=== PATIENT | male | born 1940 | race Caucasian/White ===

== ENCOUNTER 2018-02-01 14:27 | Outpatient (CLI) | payer MEDICARE ==
--- NOTE | 2018-02-01 16:22 | RAD ---
FRONTAL AND LATERAL IMAGING OF THE CHEST: Date: 02-01-18 Comparison: 02-25-15 History: Shortness of breath. FINDINGS: There is stable enlargement of the cardiac silhouette and atherosclerotic calcification of the aortic arch. There is stable elevation of the right hemidiaphragm. A 3 lead transvenous AICD is noted, inse rted via left subclavian approach. No pneumothorax, pleural fluid, focal consolidation or alveolar edema. Cardiac silhouette is prominen t on the lateral view. There is multilevel mid thoracic spine disc space narrowing and anterior osteo phyte formation. IMPRESSION: Chronic findings as described above. No focal consolidation or alveolar edema. POS: [facility]
--- NOTE | 2018-02-01 16:36 | NM ---
VQ SCAN: 02/01/18 HISTORY: Elevated D-dimer, shortness of breath. TECHNIQUE: A ventilation perfusion scan was performed using 7.4 millicuries Xenon 133 by inhalation for the vent ilation study followed by the intravenous administration of 6.4 millicuries technetium 99m-MAA for th e perfusion scan. FINDINGS: Correlation is made with the chest radiograph of the same date. There are matched segmental defects in the left lower lobe. No mismatched defects are seen. IMPRESSION: Intermediate probability for pulmonary embolism. Results were called over the telephone to ELIESER Toney at 3:45 p.m. POS: [facility]
== END 2018-02-01 14:28 | disposition home or self-care (01) ==
LOC: NM 14:27
PROVIDERS: ATTEND Physician Assistant
DX: R06.02 Shortness of breath (principal); R79.89 Other specified abnormal findings of blood chemistry; I70.0 Atherosclerosis of aorta; M48.04 Spinal stenosis, thoracic region
CPT/HCPCS: 71046; 78582; A9540; A9558

== ENCOUNTER 2018-11-21 12:07 | Inpatient (IN) | payer MEDICARE ==
[2018-11-21 12:52] LABS: #Eosinphils 0.1 thou/uL (0.0-0.7); #Lymphocytes 0.8 thou/uL (1.20-3.40); #Monocytes 0.7 thou/uL (0.11-0.59); #Neutrophils 5.1 thou/uL (1.40-6.50); %Basophils 0.2 % (0.0-1.0); %Eosinophils 1.2 % (0.0-10.0); %Lymphocytes 11.8 % (21.0-51.0); %Monocytes 10.1 % (0.0-10.0); %Neutrophils 76.7 % (42.0-75.0); Hemoglobin 11.2 g/dL (14.0-18.0); Mean Corpuscular HGB CONC 30.5 g/dL (32.0-36.0); Mean Corpuscular Hemoglobin 30.8 pg (27.0-31.0); Mean Platelet Volume 9.2 fL (7.4-10.4); Platelet Count 180 thou/uL (130-400); RBC Distribution Width 13.4 % (11.5-14.5); Red Blood Cell (RBC) Count 3.64 mill/uL (4.70-6.10); White Blood Cell (WBC) Count 6.7 thou/uL (4.8-10.8)
[2018-11-21] MEDS ORDERED: Calcium Carbonate 500 MG ChewTAB PO PRN (12:59)
[2018-11-21] MEDS ORDERED: Ondansetron ODT 4 MG TAB PO PRN (12:59)
[2018-11-21] MEDS ORDERED: Ondansetron PF 4 MG/2 ML Vial SLOW IVP PRN (12:59)
[2018-11-21 13:06] VITALS: BMI 31.9
[2018-11-21 13:11] LABS: Anion Gap 17 mmol/L (10-20); Calc. Creatinine Clearance 17 mL/min (70-130); Carbon Dioxide 21 mmol/L (23-31); Chloride 102 mmol/L (98-107); Estimated GFR-MDRD 11; Glucose 102 mg/dL (83-110); Sodium 135 mmol/L (136-145)
[2018-11-21] MEDS ORDERED: Furosemide 40 MG/4 ML VIAL SLOW IVP SCH (13:15)
[2018-11-21 13:22] LABS: BUN (Urea Nitrogen) 119 mg/dL (8.4-25.7)
[2018-11-21] MEDS ORDERED: Acetaminophen 325 MG TAB PO PRN (14:30)
[2018-11-21] MEDS ORDERED: Guaifenesin DM 100-10/5 ML UDCUP PO PRN (14:30)
[2018-11-21] MEDS ORDERED: Senokot S 8.6-50 MG TAB PO PRN (14:30)
[2018-11-21 15:53] LABS: INR-International Normal Ratio 1.1; PTT 31.3 SEC (22.9-36.1); Prothrombin Time 14.7 SEC (12.0-14.7)
[2018-11-21] MEDS: DOBUTamine 500 mg/250 ml 500 MG in Premix Bag 1 BAG IVPB SCH (15:57)
[2018-11-21 16:10] LABS: ALT (SGPT) 23 U/L (8-55); AST (SGOT) 14 U/L (5-34); Albumin 3.9 g/dL (3.4-4.8); Alkaline Phosphatase 81 U/L (40-150); Bilirubin, Direct 0.4 mg/dL (0.1-0.3); Bilirubin, Total 0.7 mg/dL (0.2-1.2); Protein, Total 6.7 g/dL (5.8-8.1)
--- NOTE | 2018-11-21 16:17 | HP ---
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 HISTORY OF PRESENTING ILLNESS: The patient gives history of having progressive swelling in both lower extremities from last 3 weeks. He has been on increased dose of Lasix from last 1-1/[address] Pereyra. He usually takes 40 mg, and this was escalated to 80 mg daily. From Tuesday, he has been asked to discontinue this as he was found to be dehydrated by primary care physician Dr. Bailey. The at bedside says his GFR is around 16% normally, it has come down to 16% from 18 or 20 that he was on before. The patient had gone to see Dr. Mckinnon for routine office visit and was asked to come to the emergency room after his BUN and creatinine were 119 and 5.0. PAST MEDICAL AND SURGICAL HISTORY: History of cardiomyopathy from last 3 to 4 years, likely nonischemic. We will obtain records from Dr. Mckinnon's office. AICD, hypertension, gout, dyslipidemia, bilateral knee surgeries, ankle surgery, and hip surgery. CURRENT MEDICATIONS: 1. The patient is on Imdur extended release 30 mg p.o. daily. 2. Lasix. He is off Lasix from last Tuesday. 3. Allopurinol 100 mg p.o. daily. 4. Fenofibrate 67 mg p.o. daily. 5. Hydralazine 25 mg p.o. 3 times daily. 6. Coreg 25 mg twice daily. 7. Norvasc 5 mg daily. 8. Lipitor 40 mg p.o. daily. ALLERGIES: NO KNOWN DRUG ALLERGIES. PERSONAL HISTORY: Does not abuse alcohol or drugs. No history of smoking. He normally ambulates inside the house and uses a cane. FAMILY HISTORY: Mother at the age of 92. Father at the age of 86, both of natural causes. Code status is DNAR, and power of deputy prosecuting attorney is his . REVIEW OF SYSTEMS: CONSTITUTIONAL: Negative for weight loss or gain, ability to conduct usual activities. SKIN: Negative for rash, itching. EYES: Negative for double vision, pain. ENT/MOUTH: Negative for nose bleeding, neck stiffness, pain, tenderness. CARDIOVASCULAR: Negative for palpitations, dyspnea on exertion, orthopnea. RESPIRATORY: Negative for shortness of breath, wheezing, cough, hemoptysis, fever or night sweats. GASTROINTESTINAL: Negative for poor appetite, abdominal pain, heartburn, nausea, vomiting, constipation, or diarrhea. GENITOURINARY: Negative for urgency, frequency, dysuria, nocturia. MUSCULOSKELETAL: Negative for pain, swelling. NEUROLOGIC/PSYCHIATRIC: Negative for anxiety, depression. ALLERGY/IMMUNOLOGIC: Negative for skin rash, bleeding tendency. PHYSICAL EXAMINATION: GENERAL: The patient is a 78-year-old male, who is currently not in any acute distress. VITAL SIGNS: Blood pressure 116/60, pulse 60 per minute, respiratory rate 20 per minute, temperature 97.5 degrees Fahrenheit, saturating 94% on room air. NECK: Supple. There is elevated JVD. HEENT: Eyes; extraocular muscles intact. Pupils reacting to light. Oral cavity; mucous membranes are dry. No exudates or congestion. CARDIOVASCULAR: S1 and S2 heard. No murmur. RESPIRATORY: Air entry 1+ bilateral. There are basal rales plus. ABDOMEN: Soft. Bowel sounds heard. No tenderness, rigidity, or guarding. EXTREMITIES: There is 2+ peripheral edema. No calf tenderness. VASCULAR: Peripheral pulses 1+ bilateral. No ischemic ulcerations or gangrene. CENTRAL NERVOUS SYSTEM: No gross focal deficits noted. The patient is alert and oriented well. PSYCHIATRIC: The patient's mood is euthymic. No hallucinations or delusions. LABORATORY DATA: White count of 6.7, hemoglobin and hematocrit 11 and 36, platelet count 180, MCV is 101 with 76% neutrophils. Serum bicarb 21, BUN 119, creatinine 5.0, serum glucose 102. CLINICAL IMPRESSION AND PLAN: The patient will be admitted to telemetry for acute on chronic congestive heart failure exacerbation with acute kidney injury on top of chronic kidney disease stage 4/5. He will be on Lasix 40 mg IV q.12 hourly along with dobutamine 2.5 mcg/kg per minute. I have consulted both Dr. Mckinnon and Dr. Pereyra. The patient likely will need to be started on hemodialysis. He will be on aspirin, Lipitor, and Coreg at a lower dose. We will continue allopurinol, fenofibrate, and Imdur as before. Hydralazine will be reduced to twice daily to accommodate for diuresis. We will obtain echo with 2D Doppler for LV function and ultrasound renal in view of acute kidney injury. TSH with the morning labs. Hepatic panel will also be obtained now. Code status was discussed with him, and he wants to be DNAR. Power of deputy prosecuting attorney is his . The patient is open for starting on hemodialysis. He is clearly aware that he might end up on dialysis with diuresis and the need for removing fluid. Job ID: [id number]
--- NOTE | 2018-11-21 16:17 | ULT ---
RENAL ULTRASOUND: History: Chronic renal disease, acute renal insufficiency. FINDINGS: Real-time imaging of the right and left kidneys were performed. The right kidney measures 11 and the left kidney 12.1 cm in size. Bilateral renal cysts are present. The largest on the right is 6.1 cm an d on the left 4.3 cm. No obstruction. There is some increased echogenicity to the cortex of both kidn eys, with cortical thinning more pronounced on the right side. The bladder region appears unremarkabl e. IMPRESSION: Multiple bilateral renal cysts. No obstruction or solid mass. POS: [facility]
--- NOTE | 2018-11-21 16:39 | RAD ---
CHEST ONE VIEW: History: Dyspnea. Comparison: 11-14-18 FINDINGS: Cardiac silhouette is magnified and enlarged. Pulmonary vasculature is slightly more engorged than on the prior study. Mediastinum is midline with aortic calcification and a dual-lead left subclavian ca rdiac electronic device. No evidence of pneumothorax. IMPRESSION: 1. Developing mild pulmonary vascular congestion. 2. Atherosclerosis. POS: [facility]
[2018-11-21] MEDS: Albumin 25% 25 GM/100 ML BOT IVPB SCH (18:35)
[2018-11-21 19:28] LABS: Bilirubin Negative (Negative); Blood, Urine Negative (Negative); Clarity CLEAR (Clear); Glucose, Urine (Dipstick) Negative (Negative); Leukocyte Negative (Negative); Nitrite Negative (Negative); Protein, Urine (Dipstick) Negative (Neg-Trace); Specific Gravity, Urine 1.012 (1.002-1.036); Urobilinogen 0.2 mg/dL (0.2-1.0)
[2018-11-21 19:33] LABS: Bacteria/HPF None Seen HPF (None Seen); Hyaline Casts/LPF 0-3 HYALINE CAST LPF (0-3 Hyaline); Pathc Cast-AUWi Flag 0.14 (0-2.49); RBC/HPF 0-3 HPF (0-3); Squamous Epithelial 0-3 HPF (0-3); WBC/HPF 0-3 HPF (0-3)
[2018-11-21 19:38] LABS: Sperm-AUWi Flag 108.7 (0-9.9)
[2018-11-21 19:48] LABS: Sperm/HPF 1+ HPF (None Seen)
[2018-11-21] MEDS ORDERED: Carvedilol 6.25 MG TAB PO SCH (21:00)
[2018-11-21] MEDS ORDERED: Famotidine/PF 20 mg/2ml Vial SLOW IVP SCH (21:00)
[2018-11-21] MEDS: hydrALAZINE 25 MG TAB PO SCH (21:54)
[2018-11-21] MEDS: Heparin 5,000 UNITS/ML VIAL SC SCH (21:56)
--- NOTE | 2018-11-21 23:03 | CON ---
DATE OF CONSULTATION: HISTORY OF PRESENT ILLNESS: Mr. Hancock is a 78-year-old white male with known history of chronic heart failure from hypertensive nephropathy and admitted for progressive shortness of breath. I saw the patient back on November 08, 2018 at [facility]. He was complaining of shortness of breath. At that time, his Lasix was increased from 40 mg once a day to 40 mg twice a day. However, the shortness of breath remained unimproved. Recently his diuretic was stopped due to worsening renal dysfunction. He saw his Plug Making Operator today and it was decided to admit him for IV dobutamine. He is currently receiving IV dobutamine. We are consulted for his acute kidney injury on top of his chronic renal failure. REVIEW OF SYSTEMS: Shortness of breath on exertion. No nausea, n no vomiting, no chest pain. No syncopal episode. No productive cough. No dysuria. No urinary frequency, no abdominal pain. Appetite is decreased. Energy level is decreased. No diarrhea. Positive for chronic leg swelling. Positive for abdominal fullness. MEDICATIONS: 1. Zyloprim 100 mg daily. 2. Aspirin 81 mg daily. 3. Lipitor 40 mg at bedtime. 4. Tums 1000 mg IV q.4h p.r.n. 5. Coreg 6.25 mg p.o. b.i.d. 6. Dobutamine drip. 7. Pepcid 20 mg daily. 8. Lasix 40 mg IV q.12. 9. TriCor 48 mg daily. 10. Heparin 5000 units subcu b.i.d. 11. Imdur ER 30 mg once a day. PAST MEDICAL HISTORY: Includes the followin. History of chronic renal failure from hypertensive nephropathy. 2. Congestive heart failure. 3. Hyperlipidemia. 4. Gout. 5. Longstanding hypertension. 6. Chronic NSAID intake. 7. DJD. PAST SURGICAL HISTORY: 1. Status post bilateral knee surgery. 2. Status post left ankle surgery. 3. Status post colonoscopy. 4. Status post left shoulder joint surgery. 5. Status post cardiac cath. SOCIAL HISTORY: The patient is . Lives in [place]. 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 Alcohol rarely. No children. No IV drug abuse. No blood transfusion. Education: College graduate. FAMILY HISTORY: No family history of ESRD. ALLERGIES: NONE. TRAUMA: Status post left shoulder joint dislocation. IMMUNIZATION: Up-to-date. HOSPITALIZATIONS: Please see past medical history. PHYSICAL EXAMINATION: VITAL SIGNS: Blood pressure is noted at 121/66 with a heart rate of 62, respiratory rate 18, temperature 97, pulse ox 93 percent. GENERAL: Noted to be awake, alert, comfortable, not in overt distress. SKIN: Adequate turgor. HEENT: He has pinkish conjunctivae. Anicteric sclerae. No neck mass. No carotid bruits. No JVD. CHEST: No deformities. LUNGS: Decreased breath sounds. Occasional crackles. HEART: Normal sinus rhythm. No murmur. No gallops. No rubs. ABDOMEN: Globular, soft, nontender. No masses. EXTREMITIES: Positive for edema. NEUROLOGICAL: Awake, oriented to 3 spheres. Moving all extremities. No tremors or asterixis. No ataxia. LABORATORY STUDIES: On November 21, 2018, renal ultrasound shows multiple bilateral renal cysts. No obstruction or solid mass. White count 6.7, hemoglobin 11.2. Sodium 135, potassium 5, chloride 102, carbon dioxide 21, BUN is 119, creatinine 5.04, GFR 11 mL/minute, glucose 102, and calcium is 9. AST 14, ALT 23. Chest x-ray is pending. ASSESSMENT AND PLAN: 1. Acute kidney injury on top of his chronic renal failure. I suspect prerenal azotemia, this could be from a worsening cardiac dysfunction and/or from the recent diuretic regimen. My bias is to at least add albumin 25 g IV q.6 in addition to his current diuretic regimen. 2. There is no indication for an emergent hemodialysis at the present time. 3. Attempt to improve renal function with conservative management. 4. Congestive heart failure-started on IV dobutamine. Currently, on IV Lasix 40 mg IV q.12. Hopefully with an improved cardiac output, renal perfusion will also improve. 5. Overall, agree with current management. Job ID: [id number]
[2018-11-22] MEDS: Albumin 25% 25 GM/100 ML BOT IVPB SCH ×4 (00:17→18:57)
[2018-11-22] MEDS ORDERED: Furosemide 40 MG/4 ML VIAL SLOW IVP SCH (06:00)
[2018-11-22 07:20] LABS: #Eosinphils 0.1 thou/uL (0.0-0.7); #Lymphocytes 0.7 thou/uL (1.20-3.40); #Monocytes 0.5 thou/uL (0.11-0.59); #Neutrophils 4.8 thou/uL (1.40-6.50); %Basophils 0.3 % (0.0-1.0); %Eosinophils 1.2 % (0.0-10.0); %Monocytes 7.6 % (0.0-10.0); %Neutrophils 78.9 % (42.0-75.0); Hemoglobin 10.2 g/dL (14.0-18.0); Mean Corpuscular HGB CONC 33.9 g/dL (32.0-36.0); Mean Corpuscular Hemoglobin 34.2 pg (27.0-31.0); Mean Platelet Volume 9.5 fL (7.4-10.4); Platelet Count 148 thou/uL (130-400); RBC Distribution Width 13.5 % (11.5-14.5); Red Blood Cell (RBC) Count 2.97 mill/uL (4.70-6.10); White Blood Cell (WBC) Count 6.1 thou/uL (4.8-10.8)
[2018-11-22 07:33] LABS: Albumin 3.7 g/dL (3.4-4.8); Anion Gap 16 mmol/L (10-20); Calc. Creatinine Clearance 18 mL/min (70-130); Calcium 8.8 mg/dL (7.8-10.44); Carbon Dioxide 21 mmol/L (23-31); Chloride 102 mmol/L (98-107); Estimated GFR-MDRD 11; Glucose 89 mg/dL (83-110); Phosphorus 5.9 mg/dL (2.3-4.7); Potassium 4.9 mmol/L (3.5-5.1); Sodium 134 mmol/L (136-145)
[2018-11-22 07:45] LABS: BUN (Urea Nitrogen) 117 mg/dL (8.4-25.7); BUN/Creatinine Ratio 23.68
[2018-11-22] MEDS ORDERED: Fenofibrate 48 MG TAB PO SCH (09:00)
[2018-11-22] MEDS ORDERED: Epoetin (ESRD) 20,000 UNITS/ML SC SCH (09:00)
[2018-11-22] MEDS ORDERED: Atorvastatin Calcium 40 MG TAB PO SCH (09:00)
--- NOTE | 2018-11-22 09:19 | PRG ---
DATE OF SERVICE: 11/22/2018 RENAL MEDICINE SUBJECTIVE: Mr. Hancock is a 78-year-old white male, who was seen by the [facility] for his acute kidney injury on top of his chronic renal failure. He was admitted for CHF. He has been started on IV dobutamine by his swinging cut off saw operator. This morning, he has no new complaints. He still says he has the same shortness of breath. He is currently on diuretic regimen. OBJECTIVE: VITAL SIGNS: Blood pressure is 130/63, heart rate is 70, respiratory rate 20, pulse ox 94% on room air, temperature 98.1. GENERAL: Awake, alert, comfortable, not in overt distress. SKIN: Adequate turgor. HEENT: He has slightly pale conjunctivae. Anicteric sclerae. No neck mass. No carotid bruits. No JVD. CHEST: No deformities. LUNGS: Decreased breath sounds. HEART: Normal sinus rhythm. No murmur. No gallops. No rubs. ABDOMEN: Globular, soft, nontender. No masses. EXTREMITIES: No deformities. Positive for edema. NEUROLOGICAL: Awake, oriented to 3 spheres. Moving all extremities. No tremors or asterixis. MEDICATIONS: Medications of November 22, 2018 was reviewed. LABORATORY DATA: Laboratories of November 22, 2018; white count 6.1, hemoglobin 10.2. Sodium 134, potassium 4.9, chloride 102, carbon dioxide 21, BUN 117, creatinine 4.94, GFR 11 mL/minute, phosphorus 5.9, calcium 8.8, TSH 2.1, albumin 3.7. ASSESSMENT AND PLAN: 1. Acute kidney injury/chronic renal failure superimposed, hemodynamically-mediated renal dysfunction. Lasix has been resumed. His much decreased ejection fraction may be playing a factor in the decreased renal perfusion. A tentative report of the cardiac echo showed an EF of about 10% to 15%. I will increase the Lasix to 80 mg IV q.12. We will be monitoring the patient's renal function. I did explain to the patient due to his markedly depressed GFR, he may need dialysis. He would like to think about it. 2. Anemia. Start Epogen. 3. Congestive heart failure. Increase Lasix to 80 mg IV q.12. Monitor renal function. Overall, prognosis remains guarded with this patient. Job ID: [id number]
[2018-11-22] MEDS: hydrALAZINE 25 MG TAB PO SCH ×2 (10:16→21:23)
[2018-11-22] MEDS: Famotidine 20 MG TAB PO SCH (10:16)
[2018-11-22] MEDS: Allopurinol 100 MG TAB PO SCH (10:16)
[2018-11-22] MEDS: Heparin 5,000 UNITS/ML VIAL SC SCH ×2 (10:17→21:23)
--- NOTE | 2018-11-22 11:48 | PDOC.PN ---
- Subjective Encounter Start Date: 11/22/18 Encounter Start Time: 08:15 Subjective: sob is better, says he is making more urine -: no chest pain or palp -: eze hose is too loose to wear per patient - Objective Resuscitation Status - Order Detail: 11/21/18 14:30 Resuscitation Status Routine Resuscitation Status: DNAR: NO Resuscitation Discussed with: d/w patient at bedside MAR Reviewed: Yes Vital Signs & Weight: Vital Signs (12 hours) Temp Pulse Resp BP Pulse Ox 11/22/18 10:16 62 11/22/18 08:00 98.3 F 62 18 126/62 93 L 11/22/18 04:00 98.1 F 70 20 130/63 Weight Weight 228 lb 14.4 oz I&O: 11/21/18 11/22/18 11/23/18 06:59 06:59 06:59 Intake Total 1090 Output Total 775 Balance 315 Result Diagrams: 11/22/18 05:27 11/22/18 05:27 Phys Exam - Physical Examination HEENT: PERRLA, moist MMs Neck: no JVD, supple Respiratory: no wheezing, no rales Cardiovascular: RRR, no significant murmur Gastrointestinal: soft, non-tender, positive bowel sounds Musculoskeletal: pulses present, edema present Neurological: non-focal, moves all 4 limbs Psychiatric: normal affect, A&O x 3 Dx/Plan (1) FARRAH (acute kidney injury) Code(s): N17.9 - ACUTE KIDNEY FAILURE, UNSPECIFIED Status: Acute (2) CKD (chronic kidney disease) stage 5, GFR less than 15 ml/min Code(s): N18.5 - CHRONIC KIDNEY DISEASE, STAGE 5 Status: Acute (3) Acute exacerbation of CHF (congestive heart failure) Code(s): I50.9 - HEART FAILURE, UNSPECIFIED Status: Chronic Qualifiers: Heart failure type: systolic Qualified Code(s): I50.23 - Acute on chronic systolic (congestive) heart failure (4) HTN (hypertension) Code(s): I10 - ESSENTIAL (PRIMARY) HYPERTENSION Status: Chronic Qualifiers: Hypertension type: essential hypertension Qualified Code(s): I10 - Essential (primary) hypertension (5) Dyslipidemia Code(s): E78.5 - HYPERLIPIDEMIA, UNSPECIFIED Status: Chronic (6) Chronic anemia Code(s): D64.9 - ANEMIA, UNSPECIFIED Status: Acute Comment: due to ckd - Plan is getting alb infusions per nephr adv -: on dobutamine infusion -: likely will need HD, ?fistual placement in prep for HD -: accurate I/O -: continue asp, lipitor, hydralazine, lasix iv , hydralazine and imdur * . Review of Systems - Medications/Allergies Allergies/Adverse Reactions: Allergies Allergy/AdvReac Type Severity Reaction Status Date / Time No Known Allergies Allergy Verified 11/21/18 13:07 Medications: Current Medications Acetaminophen (Tylenol) 650 mg PO Q4H PRN PRN Reason: Headache/Fever/Mild Pain (1-3) Albumin Human (Albumin 25%) 25 gm IVPB Q6HR [facility] Stop: 11/24/18 18:01 Last Admin: 11/22/18 06:40 Dose: 25 gm Allopurinol (Zyloprim) 100 mg PO DAILY [facility] Last Admin: 11/22/18 10:16 Dose: 100 mg Aspirin (Aspirin Chewable) 81 mg PO DAILY [facility] Last Admin: 11/22/18 10:16 Dose: 81 mg Atorvastatin Calcium (Lipitor) 40 mg PO HS [facility] Calcium Carbonate (Tums) 1,000 mg PO Q4H PRN PRN Reason: Heartburn or Indigestion Epoetin Bryce (Procrit) 7,500 units SC Q7D [facility] Famotidine (Pepcid) 20 mg PO DAILY [facility] Last Admin: 11/22/18 10:16 Dose: 20 mg Furosemide (Lasix) 80 mg SLOW IVP 0600,1400 [facility] Guaifenesin/Dextromethorphan (Robitussin Dm) 15 ml PO Q4H PRN PRN Reason: Cough Heparin Sodium (Porcine) (Heparin) 5,000 units SC BID [facility] Last Admin: 11/22/18 10:17 Dose: 5,000 units Hydralazine HCl (Apresoline) 25 mg PO BID [facility] Last Admin: 11/22/18 10:16 Dose: 25 mg Dobutamine HCl/Dextrose 500 mg (/ Device) 250 mls @ 0 mls/hr IVPB INF [facility]; Protocol Last Admin: 11/21/18 15:57 Dose: 250 mls Isosorbide Mononitrate (Imdur Er) 30 mg PO DAILY [facility] Last Admin: 11/22/18 10:16 Dose: 30 mg Ondansetron HCl (Zofran Odt) 4 mg PO Q6H PRN PRN Reason: Nausea/Vomiting Ondansetron HCl (Zofran) 4 mg SLOW IVP Q6H PRN PRN Reason: Nausea/Vomiting Senna/Docusate Sodium (Senokot S) 2 tab PO BID PRN PRN Reason: Constipation Sodium Chloride (Flush - Normal Saline) 10 ml IVF PRN PRN PRN Reason: Saline Flush Sodium Chloride (Flush - Normal Saline) 10 ml IVF Q12HR LB Last Admin: 11/22/18 10:20 Dose: 10 ml
[2018-11-22] MEDS: Furosemide 40 MG/4 ML VIAL SLOW IVP SCH (15:54)
--- NOTE | 2018-11-22 20:12 | PRG ---
DATE OF SERVICE: SUBJECTIVE: Mr. Hancock is diuresing. His blood pressure is stable. He states he feels much better. He has lost some weight per the patient, although this is not reflected in the nurse's note. OBJECTIVE: VITAL SIGNS: Blood pressure 136/60, pulse 60, and temperature 97.6. LUNGS: Crackles noted bilaterally, although improved. HEART: Regular rate and rhythm. ABDOMEN: Soft, nontender, and nondistended. EXTREMITIES: 2+ pitting edema. PERTINENT LABORATORY DATA: Hemoglobin 10.2. Creatinine 4.94 which is down from 5.04. IMPRESSION: 1. Urgar-gq-ctysxuw systolic heart failure. 2. Nonischemic cardiomyopathy. 3. Glrts-me-mcmilbz kidney disease. RECOMMENDATION: We will continue with IV checks. We would also continue Lasix. We will continue to consider metolazone. At this point, it is uncertain whether Mr. Hancock will require long-term dialysis. We will leave disposition to Dr. Pereyra. We will continue to follow closely. Job ID: [id number]
[2018-11-22] MEDS: Atorvastatin Calcium 40 MG TAB PO SCH (21:22)
[2018-11-23] MEDS: Albumin 25% 25 GM/100 ML BOT IVPB SCH ×2 (00:33→06:08)
[2018-11-23] MEDS: DOBUTamine 500 mg/250 ml 500 MG in Premix Bag 1 BAG IVPB SCH ×2 (03:00→18:18)
[2018-11-23 05:37] LABS: #Eosinphils 0.1 thou/uL (0.0-0.7); #Lymphocytes 0.7 thou/uL (1.20-3.40); #Monocytes 0.5 thou/uL (0.11-0.59); #Neutrophils 5.4 thou/uL (1.40-6.50); %Basophils 0.3 % (0.0-1.0); %Eosinophils 1.1 % (0.0-10.0); %Monocytes 8.1 % (0.0-10.0); %Neutrophils 80.5 % (42.0-75.0); Hemoglobin 10.2 g/dL (14.0-18.0); Mean Corpuscular HGB CONC 33.7 g/dL (32.0-36.0); Mean Platelet Volume 9.3 fL (7.4-10.4); Platelet Count 140 thou/uL (130-400); RBC Distribution Width 13.5 % (11.5-14.5); White Blood Cell (WBC) Count 6.7 thou/uL (4.8-10.8)
[2018-11-23 05:58] LABS: Albumin 4.3 g/dL (3.4-4.8); Anion Gap 20 mmol/L (10-20); Calc. Creatinine Clearance 17 mL/min (70-130); Calcium 9.1 mg/dL (7.8-10.44); Carbon Dioxide 18 mmol/L (23-31); Chloride 101 mmol/L (98-107); Estimated GFR-MDRD 11; Glucose 91 mg/dL (83-110); Phosphorus 6.1 mg/dL (2.3-4.7); Potassium 4.5 mmol/L (3.5-5.1); Sodium 134 mmol/L (136-145)
[2018-11-23 06:09] LABS: BUN (Urea Nitrogen) 115 mg/dL (8.4-25.7)
[2018-11-23] MEDS: Furosemide 40 MG/4 ML VIAL SLOW IVP SCH ×2 (06:09→14:57)
[2018-11-23] MEDS ORDERED: CEFAZOLIN/Water 2 GM/20 ML SYRINGE SLOW IVP SCH (09:15)
[2018-11-23] MEDS: Famotidine 20 MG TAB PO SCH (09:19)
[2018-11-23] MEDS: Allopurinol 100 MG TAB PO SCH (09:19)
[2018-11-23] MEDS: hydrALAZINE 25 MG TAB PO SCH ×2 (09:19→21:14)
[2018-11-23] MEDS: Heparin 5,000 UNITS/ML VIAL SC SCH ×2 (09:20→21:15)
--- NOTE | 2018-11-23 09:22 | PRG ---
DATE OF SERVICE: 11/23/2018 SUBJECTIVE: Mr. Hancock is a 78-year-old white male, who was admitted for congestive heart failure. Initially, we felt there may be some prerenal component. He was given albumin with Lasix. He was also diuresed and was started on IV dobutamine. However, he did not respond well. His renal function remains unimproved. GFR is 11 mL/minute. Still mildly short of breath. OBJECTIVE: VITAL SIGNS: Blood pressure is 133/68, heart rate 87, respiratory rate 20, temperature 97.7, and pulse ox 92%. GENERAL: Noted to be awake, alert, supine, comfortable, not in overt distress. SKIN: Adequate turgor. HEENT: Slightly pale conjunctivae. Anicteric sclerae. NECK: No neck mass. No carotid bruits. No JVD. CHEST: No deformities. LUNGS: Decreased breath sounds. HEART: Normal sinus rhythm. No murmur. No gallops. No rubs. ABDOMEN: Globular, soft, nontender. No masses. EXTREMITIES: No edema. No deformities. MEDICATIONS: Medications of November 23, 2018, reviewed. LABORATORY DATA: Laboratories of November 23, 2018; white count 6.7, hemoglobin 10.2. Sodium 134, potassium 4.5, chloride 101, carbon dioxide 18, BUN 115, creatinine 5.11, GFR 11 mL/minute, phosphorus 6.1. ASSESSMENT AND PLAN: 1. Chronic renal failure - unimproved renal function. GFR is 11 mL/minute. Due to the volume overload, we will initiate hemodialysis with this patient. I had long discussion with the patient and the regarding dialysis. I have agreed to proceed with this. I have spoken Dr. Mercedes for placement of a cuffed hemodialysis catheter and AV fistula. 2. Congestive heart failure. For the moment, continue current IV diuretic regimen. We will initiate dialysis for fluid removal. 3. Overall, agree with current management. Job ID: [id number]
[2018-11-23] MEDS ORDERED: CEFAZOLIN 2 GM/50 ML-DEXTROSE 2 GM in Premix Bag 1 BAG IVPB SCH (09:45)
[2018-11-23 10:14] LABS: HBSAB Concentration 1.71 mIU/mL; HBSAg Index 0.18 S/CO (0-0.99); Hep B Core Total Ab Non-Reactive (NonReactive); Hep B Core Total Index 0.06 S/CO (0-0.79); Hep B Surf AB Non-Reactive (NonReactive); Hep B Surf Ag Non-Reactive S/CO (NonReactive); Hep C IgG Ab Non-Reactive (NonReactive); Hep C Index 0.06 S/CO (0-0.79)
--- NOTE | 2018-11-23 11:47 | ULT ---
VENOUS DUPLEX SONOGRAM FOR VEIN MAPPING: HISTORY: End stage renal disease. FINDINGS: Good color and spectral Doppler flow within each internal jugular and subclavian vein and each brachi al and axillary vein. Measurements are as follows: RIGHT BRACHIAL ARTERY: 7 mm RADIAL ARTERY: 2 mm ULNAR ARTERY: 2 mm RIGHT CEPHALIC VEIN BASILIC VEIN PROXIMAL HUMERUS 5 mm 6 mm MID HUMERUS 5 mm 8 mm DISTAL HUMERUS 5 mm 6 mm ANTECUBITAL FOSSA Partially thrombosed 5 mm PROXIMAL FOREARM 3 mm 1 mm MID FOREARM Partially thrombosed 1 mm DISTAL FOREARM 1 mm 1 mm LEFT BRACHIAL ARTERY: 6 mm RADIAL ARTERY: 2 mm ULNAR ARTERY: 2 mm LEFT CEPHALIC VEIN BASILIC VEIN PROXIMAL HUMERUS 4 mm 8 mm MID HUMERUS 5 mm 10 mm DISTAL HUMERUS 5 mm 7 mm ANTECUBITAL FOSSA 5 mm 5 mm PROXIMAL FOREARM 4 mm 3 mm MID FOREARM 4 mm 2 mm DISTAL FOREARM 3 mm 2 mm IMPRESSION: Partial thrombosis of the mid to distal right cephalic vein. Otherwise, patent vascular structures t hroughout each upper extremity, with measurements as detailed above. POS: [facility]
--- NOTE | 2018-11-23 17:09 | HP ---
HISTORY OF PRESENT ILLNESS: A 78-year-old male with end-stage renal disease. I have been asked to place a dialysis catheters. He has a left subclavian vein pacemaker. He had a cardiac catheterization in February 2015 for cardiomyopathy, first-degree AV block. EP study was performed and a dual chamber defibrillator was placed. I have been asked to see him regarding placement of a dialysis access, hemodialysis catheter and fistula/graft. The patient has IV, right forearm and left arm. The patient is followed by Dr. Mckinnon from a cardiac standpoint. Ultrasound vein mapping performed this morning revealed the right cephalic vein 5 mm, 5 mm, 5 mm. Antecubital fossa partially thrombosed 3 mm. Proximal forearm partially thrombosed, mid forearm, basilic vein, right 6 mm, 8 mm, 6 mm, 5 mm. Antecubital fossa 1 mm distally. Left cephalic vein 4 mm, 5 mm, 5 mm, 5 mm, 4 mm, 4 mm, 3 mm. Basilic vein, 7 mm, 10 mm, 7 mm, 5 mm, 3 mm, 2 mm, 2 mm distal arm. ALLERGIES: NONE. TOBACCO: None. ALCOHOL: Socially. MEDICATIONS: 1. Imdur extended-release 30 a day. 2. Lasix daily. 3. Allopurinol 100 mg a day. 4. Fenofibrate 67 mg daily. 5. Hydralazine 25 mg three times a day. 6. Coreg 25 mg twice a day. 7. Norvasc 5 mg daily. 8. Lipitor 5 mg p.o. daily. The patient ambulates about the house. He has had bilateral knee replacements and right hip replacement, left ankle surgery. He is up-to-date on his colonoscopy. Has defibrillator and no abdominal surgeries. Extremities unremarkable except for mild edema. PHYSICAL EXAMINATION: VITAL SIGNS: Height 5 feet 10 inches, 228 pounds, 32 BMI, temperature 97.3, pulse 63, blood pressure 144/63. HEAD, EARS, EYES, NOSE AND THROAT: Unremarkable. LUNGS: Clear to auscultation. CARDIAC: Regular rate and rhythm. No murmur or gallop. ABDOMEN: Soft and nontender. EXTREMITIES: Mild edema. Palpable radial pulses. Proximal forearm, volar right IV, more distal left forearm IV, defibrillator left chest full. LABORATORY DATA: White count 6.7, hemoglobin 10.2. Sodium 134, potassium 4.5, BUN 115, creatinine 5.1, GFR 11. ASSESSMENT AND PLAN: 1. End-stage renal disease, in need of dialysis access. Unfortunately, IVs have been placed in this known patient with chronic kidney disease. He needs dialysis access, IVs placed in his proximal right forearm. The best arm suited for dialysis access considering he has left defibrillator subclavian, which make that prone to occlusion. Unfortunately, he has partial thrombosis cephalic vein, iatrogenic due to IV access and blood draws. He has an IV in his left arm. At this point, I would recommend placement of a hemodialysis catheter and a central line, remove his peripheral IVs, and will plan that tomorrow. After this is accomplished, he then could have a left arm venogram to evaluate his central circulation to make sure he is fit for fistula, and then place a left arm fistula. With a left subclavian vein defibrillator, he is at risk for subclavian vein thrombosis, but considering iatrogenic thrombosis of his antecubital vein due to IVs and blood draws this hospitalization, this may be the best option. 2. 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 3. Gout. 4. Chronic kidney disease. 5. Cardiomyopathy. Job ID: [id number]
--- NOTE | 2018-11-23 20:37 | PDOC.PN ---
- Subjective Encounter Start Date: 11/23/18 Encounter Start Time: 10:00 Subjective: pt up in bed no complains - Objective Resuscitation Status - Order Detail: 11/21/18 14:30 Resuscitation Status Routine Resuscitation Status: DNAR: NO Resuscitation Discussed with: d/w patient at bedside Vital Signs & Weight: Vital Signs (12 hours) Temp Pulse Resp BP Pulse Ox 11/23/18 16:38 97.5 F L 64 18 94 L 11/23/18 11:49 97.3 F L 63 20 144/63 H 94 L 11/23/18 09:19 63 Weight Weight 228 lb 8 oz I&O: 11/22/18 11/23/18 11/24/18 06:59 06:59 06:59 Intake Total 1090 1807 1215 Output Total 775 1500 850 Balance 315 307 365 Result Diagrams: 11/23/18 05:15 11/23/18 05:15 Phys Exam - Physical Examination Neck: no nodes, no JVD, supple, full ROM Respiratory: no wheezing, no rales, no rhonchi, wheezing present, clear to auscultation bilateral Cardiovascular: RRR, no significant murmur, no rub, gallop, irregular Gastrointestinal: soft, non-tender, no distention, positive bowel sounds Dx/Plan (1) Acute exacerbation of CHF (congestive heart failure) Code(s): I50.9 - HEART FAILURE, UNSPECIFIED Status: Chronic Qualifiers: Heart failure type: systolic Qualified Code(s): I50.23 - Acute on chronic systolic (congestive) heart failure (2) FARRAH (acute kidney injury) Code(s): N17.9 - ACUTE KIDNEY FAILURE, UNSPECIFIED Status: Acute (3) Chronic anemia Code(s): D64.9 - ANEMIA, UNSPECIFIED Status: Acute Comment: due to ckd (4) HTN (hypertension) Code(s): I10 - ESSENTIAL (PRIMARY) HYPERTENSION Status: Chronic Qualifiers: Hypertension type: essential hypertension Qualified Code(s): I10 - Essential (primary) hypertension - Plan pt on dobutamine -: echo pending, will obtain records from [place] -: pt most likely will need dialysis * . Review of Systems - Review of Systems Cardiovascular: negative: chest pain, palpitations, orthopnea, paroxysmal nocturnal dyspnea, edema, light headedness, other Gastrointestinal: negative: Nausea, Vomiting, Abdominal Pain, Diarrhea, Constipation, Melena, Hematochezia, Other Genitourinary: negative: Dysuria, Frequency, Incontinence, Hematuria, Retention , Other - Medications/Allergies Allergies/Adverse Reactions: Allergies Allergy/AdvReac Type Severity Reaction Status Date / Time No Known Allergies Allergy Verified 11/21/18 13:07 Medications: Current Medications Acetaminophen (Tylenol) 650 mg PO Q4H PRN PRN Reason: Headache/Fever/Mild Pain (1-3) Albumin Human (Albumin 25%) 25 gm IVPB Q6HR [facility] Stop: 11/24/18 12:01 Allopurinol (Zyloprim) 100 mg PO DAILY [facility] Last Admin: 11/23/18 09:19 Dose: 100 mg Aspirin (Aspirin Chewable) 81 mg PO DAILY [facility] Last Admin: 11/23/18 09:19 Dose: 81 mg Atorvastatin Calcium (Lipitor) 40 mg PO HS [facility] Last Admin: 11/22/18 21:22 Dose: 40 mg Calcium Carbonate (Tums) 1,000 mg PO Q4H PRN PRN Reason: Heartburn or Indigestion Epoetin Bryce (Procrit) 7,500 units SC Q7D [facility] Last Admin: 11/22/18 13:48 Dose: 7,500 units Famotidine (Pepcid) 20 mg PO DAILY [facility] Last Admin: 11/23/18 09:19 Dose: 20 mg Furosemide (Lasix) 80 mg SLOW IVP 0600,1400 [facility] Last Admin: 11/23/18 14:57 Dose: 80 mg Guaifenesin/Dextromethorphan (Robitussin Dm) 15 ml PO Q4H PRN PRN Reason: Cough Heparin Sodium (Porcine) (Heparin) 5,000 units SC BID [facility] Last Admin: 11/23/18 09:20 Dose: 5,000 units Hydralazine HCl (Apresoline) 25 mg PO BID [facility] Last Admin: 11/23/18 09:19 Dose: 25 mg Dobutamine HCl/Dextrose 500 mg (/ Device) 250 mls @ 0 mls/hr IVPB INF [facility]; Protocol Last Admin: 11/23/18 18:18 Dose: 250 mls Cefazolin Sodium/Dextrose 2 gm (/ Device) 50 mls @ 100 mls/hr IVPB ONCALL-OR [facility] Stop: 11/24/18 15:00 Isosorbide Mononitrate (Imdur Er) 30 mg PO DAILY [facility] Last Admin: 11/23/18 09:19 Dose: 30 mg Ondansetron HCl (Zofran Odt) 4 mg PO Q6H PRN PRN Reason: Nausea/Vomiting Ondansetron HCl (Zofran) 4 mg SLOW IVP Q6H PRN PRN Reason: Nausea/Vomiting Senna/Docusate Sodium (Senokot S) 2 tab PO BID PRN PRN Reason: Constipation Sodium Chloride (Flush - Normal Saline) 10 ml IVF PRN PRN PRN Reason: Saline Flush Sodium Chloride (Flush - Normal Saline) 10 ml IVF Q12HR [facility] Last Admin: 11/23/18 09:25 Dose: 10 ml
[2018-11-23] MEDS: Atorvastatin Calcium 40 MG TAB PO SCH (21:15)
[2018-11-24] MEDS: Albumin 25% 25 GM/100 ML BOT IVPB SCH ×3 (00:06→15:06)
[2018-11-24] MEDS: Furosemide 40 MG/4 ML VIAL SLOW IVP SCH ×2 (05:57→15:06)
[2018-11-24 06:45] LABS: Albumin 4.6 g/dL (3.4-4.8); Anion Gap 22 mmol/L (10-20); BUN (Urea Nitrogen) 123 mg/dL (8.4-25.7); BUN/Creatinine Ratio 23.75; Calc. Creatinine Clearance 17 mL/min (70-130); Calcium 9.8 mg/dL (7.8-10.44); Carbon Dioxide 17 mmol/L (23-31); Chloride 101 mmol/L (98-107); Estimated GFR-MDRD 11; Glucose 99 mg/dL (83-110); Phosphorus 5.9 mg/dL (2.3-4.7); Potassium 4.3 mmol/L (3.5-5.1); Sodium 136 mmol/L (136-145)
--- NOTE | 2018-11-24 07:24 | PRG ---
DATE OF SERVICE: 11/24/2018 RENAL MEDICINE SUBJECTIVE: Mr. Hancock is a 78-year-old white male, who was admitted for worsening CHF. He was seen by Cardiology. He has been started on IV dobutamine and IV Lasix without significant improvement. Renal function continues to remain unimproved. We did discuss the case at length with the patient and his . They have agreed to proceed with dialytic intervention. This morning, no new complaints. The patient has been seen by Dr. Mercedes and a planned surgery for line placement has been scheduled. OBJECTIVE: VITAL SIGNS: Blood pressure 145/74, heart rate 93, respiratory rate 20, temperature 97.4, and pulse ox 97%. GENERAL: Noted to be awake, sitting comfortable, not in overt distress. SKIN: Adequate turgor. HEENT: He has a slightly pale conjunctivae. Anicteric sclerae. NECK: No neck mass. No carotid bruits. No JVD. CHEST: No deformities. LUNGS: Clear breath sounds. No wheezing. No crackles. HEART: Normal sinus rhythm. No murmurs. No gallops. No rubs. ABDOMEN: Globular, soft, nontender. No masses. EXTREMITIES: Positive for edema. MEDICATIONS: Medications of November 24, 2018, was reviewed. LABORATORY DATA: Laboratories of November 23, 2018, white count 6.7, hemoglobin 10.2. On November 24, 2018; sodium 136, potassium 4.3, chloride 101, carbon dioxide 17, BUN 123, creatinine 5.18, calcium 9.8, and phosphorus is 5.9. ASSESSMENT AND PLAN: 1. Acute kidney injury/chronic renal failure - worsening renal dysfunction. He is now at end-stage renal disease. We will initiate dialysis once the dialysis catheter is placed. My plan is to attempt 1 L fluid removal as tolerated. We will also plan to discharge the patient's diuretics. 2. Anemia. Epogen, weekly basis have been started. 3. Congestive heart failure, on IV dobutamine. Cardiology is following. Hopefully with fluid removal with dialysis, his congestive heart failure will improve. Job ID: [id number]
--- NOTE | 2018-11-24 08:35 | HP ---
ADDENDUM: After further consideration, decision was made to forego the left arm angiogram. Tomorrow, we will instead place a hemodialysis catheter, central line, and a right arm fistula. We will perform a thrombectomy and an evaluation to assure the antecubital vein is patent. As ultrasound suggests partial thrombosis, we will remove the right arm IV stat. Job ID: [id number]
[2018-11-24] MEDS ORDERED: Heparin 10,000 UNITS/1 ML VIAL ONE (08:51)
[2018-11-24] MEDS ORDERED: Bupivacaine/Epinephrine 0.25% 30 ML VIAL ONE (08:51)
[2018-11-24] MEDS ORDERED: Lidocaine 2% PF 5 ML VIAL ONE ×2 (08:51→08:54)
[2018-11-24] MEDS ORDERED: Sodium Chloride 0.9% 30 ML ONE (08:51)
[2018-11-24] MEDS ORDERED: Heparin 5,000 UNITS/ML VIAL ONE (08:54)
[2018-11-24] MEDS ORDERED: Phentolamine Mesylate 5 MG in Sodium Chloride 0.9% 10 ML SC SCH (09:45)
[2018-11-24] MEDS ORDERED: Protamine Sulfate 50 MG/5 ML VIAL ONE (09:58)
[2018-11-24] MEDS ORDERED: KETAMINE 100 MG/ML (5ML VIAL) ONE (10:21)
[2018-11-24] MEDS ORDERED: CEFAZOLIN 2 GM/50 ML BAG ONE (11:33)
[2018-11-24] MEDS: DOBUTamine 500 mg/250 ml 500 MG in Premix Bag 1 BAG IVPB SCH (12:22)
--- NOTE | 2018-11-24 12:47 | OP ---
DATE OF PROCEDURE: 11/24/2018 PREOPERATIVE DIAGNOSES: End-stage renal disease, severe dyspnea, left subclavian vein defibrillator, dobutamine infiltration, left arm. POSTOPERATIVE DIAGNOSES: End-stage renal disease, severe dyspnea, left subclavian vein defibrillator, dobutamine infiltration, left arm. PROCEDURES PERFORMED: Right IJ cuffed tunneled dialysis catheter, left IJ central line, ultrasound and fluoroscopy used. ANESTHESIA: Intravenous sedation with local 0.5% Marcaine with epinephrine 30 mL mixed to 2% Xylocaine 10 mL. DESCRIPTION OF PROCEDURE: The patient was taken to the operating room, where under intravenous sedation, neck and chest were prepared with ChloraPrep and draped in routine fashion. Local anesthetic was infiltrated into the skin and subcutaneous tissue about the operative site. Ultrasound used to cannulate the guided cannulation of the right and left internal jugular veins, threading J-wires, removing the trocar catheter bilaterally at the J-wire entrance site. Stab incision was made in the right chest. Using the tunneling device, pre-curved [employer] cuffed-tunneled hemodialysis catheter tunneled between the two incisions, placed the fabric cuff beneath the skin exit site and catheter secured with 2 interrupted sutures of 3-0 nylon and sterile dressing applied. Small and medium size dilators were placed over the J-wire and the internal jugular vein removed. Dilator and Peel-Away sheath were placed over the J-wire into the superior vena cava. Dilator and J-wire were removed. Catheter placed with Peel-Away sheath. Peel-Away sheath removed. Platysma was approximated with 4-0 Monocryl, skin with subdermal 4-0 Monocryl. Each port aspirated blood and flushed with saline solution and heparinized saline solution, 1000 units heparin per mL indicating volume of the port. Seldinger technique was used to place a triple-lumen catheter, removed the J-wire, securing the catheter with 3-0 nylon. Each port aspirated blood and flushed with saline solution. The patient tolerated the procedure well. Note at the time of this operation, the patient was severely dyspneic and his right arm fistula was postponed until Tuesday. Job ID: [id number]
--- NOTE | 2018-11-24 13:23 | RAD ---
CHEST 1 VIEW: HISTORY: Dyspnea. Followup. COMPARISON: 11/21/2017. FINDINGS: Cardiac silhouette is magnified by projection and remains partially obscured by left pleural fluid an d basilar infiltrate. It is similar in appearance to the prior study. Infiltrate at the right base has worsened slightly. Pulmonary vasculature remains engorged. Mediastinum is midline with aortic c alcification. A large-caliber dual-lumen right internal jugular dialysis-type catheter is now in place with tips ov erlying the cavoatrial junction. Left internal jugular catheter is also in place with tip crossing m idline directed superiorly at the superior vena cava. No evidence of pneumothorax. IMPRESSION: 1. Bilateral internal jugular catheter as detailed above. No evidence of complication. 2. Pulmonary vascular congestion with pleural fluid and increasing right basilar infiltrate. POS: [facility]
[2018-11-24] MEDS ORDERED: ALPRAZolam 0.25 MG TAB PO PRN (13:43)
[2018-11-24] MEDS ORDERED: Heparin 10,000 UNITS/ 10 ML VIAL ONE (15:00)
[2018-11-24] MEDS: Allopurinol 100 MG TAB PO SCH (15:04)
[2018-11-24] MEDS: Famotidine 20 MG TAB PO SCH (15:04)
[2018-11-24] MEDS: Heparin 5,000 UNITS/ML VIAL SC SCH ×2 (15:05→21:19)
[2018-11-24] MEDS: hydrALAZINE 25 MG TAB PO SCH ×2 (15:05→21:18)
--- NOTE | 2018-11-24 15:46 | PRG ---
DATE OF SERVICE: 11/24/2018 SUBJECTIVE: Mr. Hancock continues to complaint shortness of breath. He has now been committed to dialysis. He is seen on dialysis. The plan is to remove 1 L of fluid. His echo did suggest LVEF 10% to 15%. He did have moderate aortic stenosis, which may be underestimated due to low output state. OBJECTIVE: VITAL SIGNS: Blood pressure 132/64, pulse 81, and temperature afebrile. LUNGS: Clear to auscultation. HEART: Regular rate and rhythm with 2/6 systolic ejection murmur. ABDOMEN: Soft and nontender. Positive distention. EXTREMITIES: Improved edema, estimated 1+. PERTINENT LABORATORY DATA: Hemoglobin 10.2, creatinine 5.1, and potassium 4.3. IMPRESSION: 1. Acute on chronic systolic heart failure. 2. End-stage renal disease. 3. Moderate aortic stenosis. RECOMMENDATIONS AND PLAN: At this point, we would continue treatment with removal of fluid via dialysis. The plan is to remove 1 L. He likely will get improvement in symptoms. He continues to be volume overloaded. May need to further investigate his aortic valve as an outpatient. Job ID: [id number]
--- NOTE | 2018-11-24 20:41 | EKG ---
Test Reason : Blood Pressure : / mmHG Vent. Rate : 064 BPM Atrial Rate : 064 BPM P-R Int : 120 ms QRS Dur : 188 ms QT Int : 520 ms P-R-T Axes : 000 -23 104 degrees QTc Int : 536 ms AV sequential or dual chamber electronic pacemaker When compared with ECG of 25-FEB-2015 17:22, Previous ECG has undetermined rhythm, needs review Confirmed by Breanna GUEVARA ([id number]) on 11/24/2018 8:40:46 PM Referred By: SCARLETT Confirmed By:Breanna GUEVARA
[2018-11-24] MEDS: Atorvastatin Calcium 40 MG TAB PO SCH (21:18)
[2018-11-25] MEDS: DOBUTamine 500 mg/250 ml 500 MG in Premix Bag 1 BAG IVPB SCH (05:36)
--- NOTE | 2018-11-25 05:40 | PDOC.PN ---
- Subjective Encounter Start Date: 11/24/18 Encounter Start Time: 15:00 Subjective: pt up in dialysis, still very sob - Objective Resuscitation Status - Order Detail: 11/21/18 14:30 Resuscitation Status Routine Resuscitation Status: DNAR: NO Resuscitation Discussed with: d/w patient at bedside Vital Signs & Weight: Vital Signs (12 hours) Temp Pulse Resp BP BP Pulse Ox 11/25/18 04:00 98.2 F 77 20 133/64 95 11/24/18 21:18 80 11/24/18 20:00 98 F 94 18 120/67 94 L Weight Weight 224 lb 14.4 oz I&O: 11/23/18 11/24/18 11/25/18 06:59 06:59 06:59 Intake Total 1807 2145 480 Output Total 1500 1500 800 Balance 307 645 -320 Result Diagrams: 11/23/18 05:15 11/24/18 05:14 Phys Exam - Physical Examination Neck: no nodes, no JVD, supple, full ROM Respiratory: no wheezing, no rales, no rhonchi, wheezing present, clear to auscultation bilateral Cardiovascular: RRR, no significant murmur, no rub, gallop, irregular Gastrointestinal: soft, non-tender, no distention, positive bowel sounds mild lower ext edema Dx/Plan (1) Acute exacerbation of CHF (congestive heart failure) Code(s): I50.9 - HEART FAILURE, UNSPECIFIED Status: Chronic Qualifiers: Heart failure type: systolic Qualified Code(s): I50.23 - Acute on chronic systolic (congestive) heart failure (2) FARRAH (acute kidney injury) Code(s): N17.9 - ACUTE KIDNEY FAILURE, UNSPECIFIED Status: Acute (3) Chronic anemia Code(s): D64.9 - ANEMIA, UNSPECIFIED Status: Acute Comment: due to ckd (4) HTN (hypertension) Code(s): I10 - ESSENTIAL (PRIMARY) HYPERTENSION Status: Chronic Qualifiers: Hypertension type: essential hypertension Qualified Code(s): I10 - Essential (primary) hypertension - Plan pt still sob, cxr with mild improvement -: pt's ef is 10-15% with MR and some TR -: moderate noted too. hopefully dialysis will help this pt -: will add some xanx to help with anxiety. -: outside hospital records pending * . Review of Systems - Review of Systems Respiratory: Shortness of Breath Cardiovascular: negative: chest pain, palpitations, orthopnea, paroxysmal nocturnal dyspnea, edema, light headedness, other Gastrointestinal: negative: Nausea, Vomiting, Abdominal Pain, Diarrhea, Constipation, Melena, Hematochezia, Other - Medications/Allergies Allergies/Adverse Reactions: Allergies Allergy/AdvReac Type Severity Reaction Status Date / Time No Known Allergies Allergy Verified 11/21/18 13:07 Medications: Current Medications Acetaminophen (Tylenol) 650 mg PO Q4H PRN PRN Reason: Headache/Fever/Mild Pain (1-3) Allopurinol (Zyloprim) 100 mg PO DAILY [facility] Last Admin: 11/24/18 15:04 Dose: 100 mg Alprazolam (Xanax) 0.25 mg PO BID PRN PRN Reason: Anxiety Aspirin (Aspirin Chewable) 81 mg PO DAILY [facility] Last Admin: 11/24/18 15:04 Dose: 81 mg Atorvastatin Calcium (Lipitor) 40 mg PO HS [facility] Last Admin: 11/24/18 21:18 Dose: 40 mg Calcium Carbonate (Tums) 1,000 mg PO Q4H PRN PRN Reason: Heartburn or Indigestion Epoetin Bryce (Procrit) 7,500 units SC Q7D [facility] Last Admin: 11/22/18 13:48 Dose: 7,500 units Famotidine (Pepcid) 20 mg PO DAILY [facility] Last Admin: 11/24/18 15:04 Dose: 20 mg Furosemide (Lasix) 80 mg SLOW IVP 0600,1400 [facility] Last Admin: 11/24/18 15:06 Dose: 80 mg Guaifenesin/Dextromethorphan (Robitussin Dm) 15 ml PO Q4H PRN PRN Reason: Cough Heparin Sodium (Porcine) (Heparin) 5,000 units SC BID [facility] Last Admin: 11/24/18 21:19 Dose: 5,000 units Hydralazine HCl (Apresoline) 25 mg PO BID [facility] Last Admin: 11/24/18 21:18 Dose: 25 mg Dobutamine HCl/Dextrose 500 mg (/ Device) 250 mls @ 0 mls/hr IVPB INF [facility]; Protocol Last Admin: 11/25/18 05:36 Dose: 250 mls Isosorbide Mononitrate (Imdur Er) 30 mg PO DAILY [facility] Last Admin: 11/24/18 15:05 Dose: 30 mg Ondansetron HCl (Zofran Odt) 4 mg PO Q6H PRN PRN Reason: Nausea/Vomiting Ondansetron HCl (Zofran) 4 mg SLOW IVP Q6H PRN PRN Reason: Nausea/Vomiting Senna/Docusate Sodium (Senokot S) 2 tab PO BID PRN PRN Reason: Constipation Sodium Chloride (Flush - Normal Saline) 10 ml IVF PRN PRN PRN Reason: Saline Flush Last Admin: 11/24/18 05:57 Dose: 10 ml Sodium Chloride (Flush - Normal Saline) 10 ml IVF Q12HR [facility] Last Admin: 11/24/18 21:19 Dose: 10 ml
[2018-11-25] MEDS: Furosemide 40 MG/4 ML VIAL SLOW IVP SCH ×2 (05:44→14:16)
[2018-11-25] MEDS: Allopurinol 100 MG TAB PO SCH (08:59)
[2018-11-25] MEDS: hydrALAZINE 25 MG TAB PO SCH ×2 (08:59→21:58)
[2018-11-25] MEDS: Heparin 5,000 UNITS/ML VIAL SC SCH ×2 (08:59→21:48)
[2018-11-25] MEDS: Famotidine 20 MG TAB PO SCH (08:59)
--- NOTE | 2018-11-25 11:08 | PRG ---
DATE OF SERVICE: 11/25/2018 RENAL MEDICINE SUBJECTIVE: Mr. Hancock is a 78-year-old white male, who was admitted for CHF. Due to the improved CHF and worsening renal dysfunction, the patient has been initiated dialysis. I have scheduled him for another 2-hour hemodialysis session today with fluid removal. We will now be discontinuing his IV furosemide. He is tolerating the said treatment. No other complaints. He tells me his breathing is improved. OBJECTIVE: VITAL SIGNS: Blood pressure 131/90, heart rate 78, respiratory rate 20, temperature 97.9, and pulse ox 92%. GENERAL: The patient is awake, alert, comfortable, not in distress. SKIN: Adequate turgor. HEENT: He has a pinkish conjunctivae. Anicteric sclerae. No neck mass. No carotid bruits. No JVD. CHEST: No deformities. LUNGS: Decreased breath sounds. HEART: Normal sinus rhythm. No murmurs, gallops, or rubs. ABDOMEN: Globular, soft, and nontender. No masses. EXTREMITIES: Positive for edema. MEDICATIONS: Medications of November 25, 2018, reviewed. LABORATORY DATA: Laboratories of November 23, 2018; hemoglobin 10.2. On November 24, 2018; BUN 123, creatinine 5.18, potassium 4.3, sodium 136, and phosphorus is 5.9. ASSESSMENT AND PLAN: 1. Chronic renal failure/end-stage renal disease-renal function is worsened. For that reason, he has been initiated dialysis. Continue daily hemodialysis with this patient, max out fluid removal. 2. Congestive heart failure, clinically improving with dialysis and IV dobutamine. We will discontinue IV Lasix. 3. Anemia, on weekly Epogen. Recheck basic metabolic panel and CBC in a.m. Job ID: [id number]
--- NOTE | 2018-11-25 11:11 | PDOC.PN ---
- Subjective Encounter Start Date: 11/25/18 Encounter Start Time: 09:15 Subjective: pt up in bed feels much better today - Objective Resuscitation Status - Order Detail: 11/21/18 14:30 Resuscitation Status Routine Resuscitation Status: DNAR: NO Resuscitation Discussed with: d/w patient at bedside Vital Signs & Weight: Vital Signs (12 hours) Temp Pulse Resp BP BP BP Pulse Ox 11/25/18 08:59 78 131/90 11/25/18 08:58 97.9 F 78 20 131/90 92 L 11/25/18 04:00 98.2 F 77 20 133/64 95 Weight Weight 216 lb I&O: 11/24/18 11/25/18 11/26/18 06:59 06:59 06:59 Intake Total 2145 903.6 Output Total 1500 1200 Balance 645 -296.4 Result Diagrams: 11/23/18 05:15 11/24/18 05:14 Phys Exam - Physical Examination Neck: no nodes, no JVD, supple, full ROM Respiratory: no wheezing, no rales, no rhonchi, wheezing present, clear to auscultation bilateral Cardiovascular: RRR, no significant murmur, no rub, gallop, irregular Gastrointestinal: soft, non-tender, no distention, positive bowel sounds Musculoskeletal: edema present lower ext Neurological: non-focal, normal sensation, moves all 4 limbs Dx/Plan (1) Acute exacerbation of CHF (congestive heart failure) Code(s): I50.9 - HEART FAILURE, UNSPECIFIED Status: Chronic Qualifiers: Heart failure type: systolic Qualified Code(s): I50.23 - Acute on chronic systolic (congestive) heart failure (2) FARRAH (acute kidney injury) Code(s): N17.9 - ACUTE KIDNEY FAILURE, UNSPECIFIED Status: Acute (3) Chronic anemia Code(s): D64.9 - ANEMIA, UNSPECIFIED Status: Acute Comment: due to ckd (4) HTN (hypertension) Code(s): I10 - ESSENTIAL (PRIMARY) HYPERTENSION Status: Chronic Qualifiers: Hypertension type: essential hypertension Qualified Code(s): I10 - Essential (primary) hypertension - Plan pt feels better today, no oxygen on at rest -: removal of 1L yestarday. continue to monitor -: pt still on dobutamine drip, ef is 10-15% * . Review of Systems - Review of Systems Cardiovascular: negative: chest pain, palpitations, orthopnea, paroxysmal nocturnal dyspnea, edema, light headedness, other Gastrointestinal: negative: Nausea, Vomiting, Abdominal Pain, Diarrhea, Constipation, Melena, Hematochezia, Other Genitourinary: negative: Dysuria, Frequency, Incontinence, Hematuria, Retention , Other - Medications/Allergies Allergies/Adverse Reactions: Allergies Allergy/AdvReac Type Severity Reaction Status Date / Time No Known Allergies Allergy Verified 11/21/18 13:07 Medications: Current Medications Acetaminophen (Tylenol) 650 mg PO Q4H PRN PRN Reason: Headache/Fever/Mild Pain (1-3) Allopurinol (Zyloprim) 100 mg PO DAILY [facility] Last Admin: 11/25/18 08:59 Dose: 100 mg Alprazolam (Xanax) 0.25 mg PO BID PRN PRN Reason: Anxiety Aspirin (Aspirin Chewable) 81 mg PO DAILY [facility] Last Admin: 11/25/18 08:59 Dose: 81 mg Atorvastatin Calcium (Lipitor) 40 mg PO HS [facility] Last Admin: 11/24/18 21:18 Dose: 40 mg Calcium Carbonate (Tums) 1,000 mg PO Q4H PRN PRN Reason: Heartburn or Indigestion Epoetin Bryce (Procrit) 7,500 units SC Q7D [facility] Last Admin: 11/22/18 13:48 Dose: 7,500 units Famotidine (Pepcid) 20 mg PO DAILY [facility] Last Admin: 11/25/18 08:59 Dose: 20 mg Furosemide (Lasix) 80 mg SLOW IVP 0600,1400 [facility] Last Admin: 11/25/18 05:44 Dose: 80 mg Guaifenesin/Dextromethorphan (Robitussin Dm) 15 ml PO Q4H PRN PRN Reason: Cough Heparin Sodium (Porcine) (Heparin) 5,000 units SC BID [facility] Last Admin: 11/25/18 08:59 Dose: 5,000 units Hydralazine HCl (Apresoline) 25 mg PO BID [facility] Last Admin: 11/25/18 08:59 Dose: 25 mg Dobutamine HCl/Dextrose 500 mg (/ Device) 250 mls @ 0 mls/hr IVPB INF [facility]; Protocol Last Admin: 11/25/18 05:36 Dose: 250 mls Isosorbide Mononitrate (Imdur Er) 30 mg PO DAILY [facility] Last Admin: 11/25/18 08:59 Dose: 30 mg Ondansetron HCl (Zofran Odt) 4 mg PO Q6H PRN PRN Reason: Nausea/Vomiting Ondansetron HCl (Zofran) 4 mg SLOW IVP Q6H PRN PRN Reason: Nausea/Vomiting Senna/Docusate Sodium (Senokot S) 2 tab PO BID PRN PRN Reason: Constipation Sodium Chloride (Flush - Normal Saline) 10 ml IVF PRN PRN PRN Reason: Saline Flush Last Admin: 11/24/18 05:57 Dose: 10 ml Sodium Chloride (Flush - Normal Saline) 10 ml IVF Q12HR [facility] Last Admin: 11/25/18 09:00 Dose: 10 ml
[2018-11-25 11:15] LABS: #Lymphocytes 0.7 thou/uL (1.20-3.40); #Monocytes 0.4 thou/uL (0.11-0.59); #Neutrophils 5.5 thou/uL (1.40-6.50); %Basophils 0.2 % (0.0-1.0); %Eosinophils 0.1 % (0.0-10.0); %Monocytes 6.3 % (0.0-10.0); %Neutrophils 83.5 % (42.0-75.0); Hemoglobin 10.2 g/dL (14.0-18.0); Mean Corpuscular HGB CONC 33.9 g/dL (32.0-36.0); Mean Corpuscular Hemoglobin 34.8 pg (27.0-31.0); Mean Platelet Volume 9.6 fL (7.4-10.4); Platelet Count 122 thou/uL (130-400); RBC Distribution Width 13.4 % (11.5-14.5); Red Blood Cell (RBC) Count 2.93 mill/uL (4.70-6.10); White Blood Cell (WBC) Count 6.6 thou/uL (4.8-10.8)
[2018-11-25 11:49] LABS: Albumin 4.6 g/dL (3.4-4.8); Anion Gap 16 mmol/L (10-20); BUN (Urea Nitrogen) 111 mg/dL (8.4-25.7); BUN/Creatinine Ratio 21.98; Calc. Creatinine Clearance 16 mL/min (70-130); Calcium 9.7 mg/dL (7.8-10.44); Carbon Dioxide 23 mmol/L (23-31); Chloride 101 mmol/L (98-107); Estimated GFR-MDRD 11; Glucose 127 mg/dL (83-110); Magnesium 2.8 mg/dL (1.6-2.6); Phosphorus 5.5 mg/dL (2.3-4.7); Potassium 3.9 mmol/L (3.5-5.1); Sodium 136 mmol/L (136-145)
[2018-11-25] MEDS: Atorvastatin Calcium 40 MG TAB PO SCH (21:55)
[2018-11-26] MEDS: Furosemide 40 MG/4 ML VIAL SLOW IVP SCH (06:17)
[2018-11-26 08:20] LABS: Albumin 4.3 g/dL (3.4-4.8); Anion Gap 17 mmol/L (10-20); BUN (Urea Nitrogen) 82 mg/dL (8.4-25.7); BUN/Creatinine Ratio 17.37; Calc. Creatinine Clearance 17 mL/min (70-130); Calcium 9.6 mg/dL (7.8-10.44); Carbon Dioxide 25 mmol/L (23-31); Chloride 101 mmol/L (98-107); Estimated GFR-MDRD 12; Glucose 97 mg/dL (83-110); Phosphorus 5.3 mg/dL (2.3-4.7); Potassium 4.4 mmol/L (3.5-5.1); Sodium 139 mmol/L (136-145)
[2018-11-26] MEDS: Famotidine 20 MG TAB PO SCH (08:49)
[2018-11-26] MEDS: Allopurinol 100 MG TAB PO SCH (08:50)
[2018-11-26] MEDS: hydrALAZINE 25 MG TAB PO SCH ×2 (08:50→20:25)
[2018-11-26] MEDS: Heparin 5,000 UNITS/ML VIAL SC SCH ×2 (08:50→20:25)
--- NOTE | 2018-11-26 09:49 | PRG ---
DATE OF SERVICE: 11/26/2018 SUBJECTIVE: Mr. Hancock is a 78-year-old white male, who was admitted for congestive heart failure. He has also known history of chronic renal failure, which has worsened. Hemodialysis has been initiated due to volume overload as well as progressive azotemia. He has been receiving daily dialysis. He is tolerating said treatment. Today, I have scheduled him for 3-hour hemodialysis today with maximal fluid removal as tolerated. No other complaints. Lasix has been discontinued. OBJECTIVE: VITAL SIGNS: Blood pressure is 108/52, heart rate 87, respiratory rate 18, pulse ox 92% on room air, and temperature 97.2. GENERAL: He is noted to be awake, alert, sitting comfortable, not in distress. SKIN: Adequate turgor. HEENT: He has a pinkish conjunctivae. Anicteric sclerae. NECK: No neck mass. No carotid bruits. No JVD. CHEST: No deformities. LUNGS: Bibasal crackles. HEART: Normal sinus rhythm. No murmur. No gallops. No rubs. ABDOMEN: Globular, soft, and nontender. No masses. EXTREMITIES: No deformities. Positive for edema. MEDICATIONS: Medications of November 26, 2018, was reviewed. LABORATORY DATA: Laboratories of November 26, 2018; sodium 139, potassium 4.4, chloride 101, carbon dioxide 25, BUN 82, creatinine 4.72, calcium 9.6, and phosphorus 5.3. ASSESSMENT AND PLAN: 1. Hyperphosphatemia, slowly improving with dialysis. 2. End-stage renal disease/chronic renal failure-hemodialysis x3 hours. Maximal fluid removal as tolerated. We have discontinued Lasix today. 3. Congestive heart failure. Continue supportive care. Max out fluid removal with dialysis. Awaiting outpatient dialysis placement. Job ID: [id number]
[2018-11-26] MEDS ORDERED: Bisacodyl 5 MG TAB PO SCH (10:45)
[2018-11-26] MEDS: Tuberculin PPD 0.1 ML VIAL I-DERMAL SCH (11:05)
[2018-11-26] MEDS ORDERED: Heparin 1,000 UNITS/ML VIAL ONE ×2 (11:11)
--- NOTE | 2018-11-26 14:26 | PDOC.PN ---
- Subjective Encounter Start Date: 11/26/18 Encounter Start Time: 09:15 Subjective: pt up in bed still has some sob and a cough - Objective Resuscitation Status - Order Detail: 11/21/18 14:30 Resuscitation Status Routine Resuscitation Status: DNAR: NO Resuscitation Discussed with: d/w patient at bedside Vital Signs & Weight: Vital Signs (12 hours) Temp Pulse Resp BP BP Pulse Ox 11/26/18 08:50 87 108/52 L 11/26/18 08:00 97.2 F L 87 18 108/52 L 92 L 11/26/18 04:41 97.2 F L 86 16 97/53 L 92 L Weight Weight 213 lb I&O: 11/25/18 11/26/18 11/27/18 06:59 06:59 06:59 Intake Total 903.6 600 Output Total 1200 1200 Balance -296.4 -600 Result Diagrams: 11/25/18 11:00 11/26/18 07:55 Phys Exam - Physical Examination Neck: no nodes, no JVD, supple, full ROM Respiratory: no wheezing, no rales, no rhonchi, wheezing present, clear to auscultation bilateral Cardiovascular: RRR, no significant murmur, no rub, gallop, irregular Gastrointestinal: soft, non-tender, no distention, positive bowel sounds Musculoskeletal: edema present Dx/Plan (1) Acute exacerbation of CHF (congestive heart failure) Code(s): I50.9 - HEART FAILURE, UNSPECIFIED Status: Chronic Qualifiers: Heart failure type: systolic Qualified Code(s): I50.23 - Acute on chronic systolic (congestive) heart failure (2) FARRAH (acute kidney injury) Code(s): N17.9 - ACUTE KIDNEY FAILURE, UNSPECIFIED Status: Acute (3) Chronic anemia Code(s): D64.9 - ANEMIA, UNSPECIFIED Status: Acute Comment: due to ckd (4) HTN (hypertension) Code(s): I10 - ESSENTIAL (PRIMARY) HYPERTENSION Status: Chronic Qualifiers: Hypertension type: essential hypertension Qualified Code(s): I10 - Essential (primary) hypertension - Plan pt is going for dialysis today -: electrolytes stable, pt still on lasix -: bp stable. not on ASHER for now that would cause the cough -: pt may use his own flonase, will add stool softner on pt request * . Review of Systems - Review of Systems Respiratory: Cough, Shortness of Breath Cardiovascular: negative: chest pain, palpitations, orthopnea, paroxysmal nocturnal dyspnea, edema, light headedness, other Gastrointestinal: negative: Nausea, Vomiting, Abdominal Pain, Diarrhea, Constipation, Melena, Hematochezia, Other Genitourinary: negative: Dysuria, Frequency, Incontinence, Hematuria, Retention , Other - Medications/Allergies Allergies/Adverse Reactions: Allergies Allergy/AdvReac Type Severity Reaction Status Date / Time No Known Allergies Allergy Verified 11/21/18 13:07 Medications: Current Medications Acetaminophen (Tylenol) 650 mg PO Q4H PRN PRN Reason: Headache/Fever/Mild Pain (1-3) Allopurinol (Zyloprim) 100 mg PO DAILY [facility] Last Admin: 11/26/18 08:50 Dose: 100 mg Alprazolam (Xanax) 0.25 mg PO BID PRN PRN Reason: Anxiety Aspirin (Aspirin Chewable) 81 mg PO DAILY [facility] Last Admin: 11/26/18 08:49 Dose: 81 mg Atorvastatin Calcium (Lipitor) 40 mg PO HS [facility] Last Admin: 11/25/18 21:55 Dose: 40 mg Calcium Carbonate (Tums) 1,000 mg PO Q4H PRN PRN Reason: Heartburn or Indigestion Epoetin Bryce (Procrit) 7,500 units SC Q7D [facility] Last Admin: 11/22/18 13:48 Dose: 7,500 units Famotidine (Pepcid) 20 mg PO DAILY [facility] Last Admin: 11/26/18 08:49 Dose: 20 mg Guaifenesin/Dextromethorphan (Robitussin Dm) 15 ml PO Q4H PRN PRN Reason: Cough Heparin Sodium (Porcine) (Heparin) 5,000 units SC BID [facility] Last Admin: 11/26/18 08:50 Dose: 5,000 units Hydralazine HCl (Apresoline) 25 mg PO BID [facility] Last Admin: 11/26/18 08:50 Dose: Not Given Isosorbide Mononitrate (Imdur Er) 30 mg PO DAILY [facility] Last Admin: 11/26/18 08:49 Dose: 30 mg Ondansetron HCl (Zofran Odt) 4 mg PO Q6H PRN PRN Reason: Nausea/Vomiting Ondansetron HCl (Zofran) 4 mg SLOW IVP Q6H PRN PRN Reason: Nausea/Vomiting Last Admin: 11/25/18 21:54 Dose: 4 mg Polyethylene Glycol (Miralax) 17 gm PO DAILY [facility] Senna/Docusate Sodium (Senokot S) 2 tab PO BID PRN PRN Reason: Constipation Sodium Chloride (Flush - Normal Saline) 10 ml IVF PRN PRN PRN Reason: Saline Flush Last Admin: 11/24/18 05:57 Dose: 10 ml Sodium Chloride (Flush - Normal Saline) 10 ml IVF Q12HR [facility] Last Admin: 11/26/18 08:51 Dose: 10 ml Tuberculin PPD (Aplisol) 0.1 ml I-DERMAL 1000 [facility] Stop: 11/29/18 10:01 Last Admin: 11/26/18 11:05 Dose: 0.1 ml
[2018-11-26] MEDS: Atorvastatin Calcium 40 MG TAB PO SCH (20:25)
[2018-11-27] MEDS ORDERED: Fentanyl 100 MCG/2 ML VIAL ONE ×2 (06:07→07:18)
[2018-11-27] MEDS ORDERED: Lidocaine 2% Jelly 5 ML TUBE ONE (06:07)
[2018-11-27] MEDS ORDERED: Protamine Sulfate 50 MG/5 ML VIAL ONE (07:05)
[2018-11-27] MEDS ORDERED: Bupivacaine HCl 0.5%/Epinephrine 1:200,000/PF 30 ml Vial ONE ×2 (07:05→14:42)
[2018-11-27] MEDS ORDERED: Heparin 5,000 UNITS/ML VIAL ONE (07:05)
[2018-11-27] MEDS ORDERED: Lidocaine 2% PF 5 ML VIAL ONE (07:05)
[2018-11-27 07:17] LABS: Albumin 3.9 g/dL (3.4-4.8); Anion Gap 17 mmol/L (10-20); BUN (Urea Nitrogen) 52 mg/dL (8.4-25.7); Calc. Creatinine Clearance 21 mL/min (70-130); Calcium 8.5 mg/dL (7.8-10.44); Carbon Dioxide 23 mmol/L (23-31); Chloride 103 mmol/L (98-107); Estimated GFR-MDRD 15; Glucose 81 mg/dL (83-110); Potassium 3.8 mmol/L (3.5-5.1); Sodium 139 mmol/L (136-145)
[2018-11-27] MEDS ORDERED: Midazolam HCl 2 mg/2 ml Vial ONE (07:18)
[2018-11-27] MEDS ORDERED: CEFAZOLIN 2 GM/50 ML BAG ONE (07:50)
[2018-11-27] MEDS: Heparin 5,000 UNITS/ML VIAL SC SCH ×2 (08:50→21:23)
--- NOTE | 2018-11-27 10:51 | OP ---
DATE OF PROCEDURE: 11/27/2018 PREOPERATIVE DIAGNOSIS: End-stage renal disease. POSTOPERATIVE DIAGNOSIS: End-stage renal disease, right Daylin fistula. ANESTHESIA: Regional TIVA. ESTIMATED BLOOD LOSS: Less than 20 mL. DESCRIPTION OF PROCEDURE: The patient was taken to the operating room, where under regional anesthesia and IV sedation, right upper extremity was prepared with ChloraPrep and draped in routine fashion. Incision was made between the radial artery and cephalic vein at the wrist along the suture, carried down the skin and subcutaneous tissue, dissected the cephalic vein and radial artery. Cephalic vein was excellent caliber. Branches of the cephalic vein divided between clips and 4-0 silk ties and stump on the hand side ligated with 3-0 silk tie. It was divided, spatulated, and interrogated with coronary dilators, passing coronary dilators from 2 mm to 4 mm coronary dilator without obstruction only to cephalic vein. The patient given 6000 units of heparin intravenously. Radial artery was dissected free and clamped proximally and distally. Cephalic vein was flushed with heparinized saline solution. A bulldog clamp was applied. Branches evaluated for distally and no significant branches were found. End vein to side radial artery anastomosis 2.5 cm created with continuous suture of 6-0 Prolene. At the completion of anastomosis, there was a good Doppler signal in the cephalic vein outflow. The patient was given 25 mg of protamine intravenously. Good hemostasis noted. Subcutaneous tissue was approximated with 3-0 Monocryl, skin with subdermal 4-0 Monocryl, and Dermal glue was applied. Job ID: [id number]
[2018-11-27] MEDS: hydrALAZINE 25 MG TAB PO SCH ×2 (11:52→21:25)
[2018-11-27] MEDS: Tuberculin PPD 0.1 ML VIAL I-DERMAL SCH (12:59)
[2018-11-27] MEDS: Allopurinol 100 MG TAB PO SCH (13:52)
[2018-11-27] MEDS: Famotidine 20 MG TAB PO SCH (13:52)
[2018-11-27] MEDS: Polyethylene Glycol 3350 17 GM Packet PO SCH (13:54)
[2018-11-27] MEDS ORDERED: Heparin 10,000 UNITS/ 10 ML VIAL ONE (15:15)
--- NOTE | 2018-11-27 16:52 | PDOC.PN ---
- Subjective Encounter Start Date: 11/27/18 Encounter Start Time: 09:15 Subjective: pt up in bed no complains - Objective Resuscitation Status - Order Detail: 11/21/18 14:30 Resuscitation Status Routine Resuscitation Status: DNAR: NO Resuscitation Discussed with: d/w patient at bedside Vital Signs & Weight: Vital Signs (12 hours) Temp Pulse Pulse Pulse Resp BP BP 11/27/18 11:53 97.9 F 68 16 11/27/18 11:52 81 11/27/18 10:54 80 70 124/56 L 113/67 11/27/18 09:30 11/27/18 09:28 97.9 F 81 16 BP BP Pulse Ox Pulse Ox Pulse Ox 11/27/18 11:53 102/57 L 96 11/27/18 11:52 11/27/18 10:54 95 90 L 11/27/18 09:30 98 11/27/18 09:28 128/63 98 Weight Weight 210 lb I&O: 11/26/18 11/27/18 11/28/18 06:59 06:59 06:59 Intake Total 600 840 Output Total 1200 0 Balance -600 840 Result Diagrams: 11/25/18 11:00 11/27/18 05:02 Phys Exam - Physical Examination Neck: no nodes, no JVD, supple, full ROM Respiratory: no wheezing, no rales, no rhonchi, wheezing present, clear to auscultation bilateral Cardiovascular: RRR, no significant murmur, no rub, gallop, irregular Gastrointestinal: soft, non-tender, no distention, positive bowel sounds Musculoskeletal: edema present Dx/Plan (1) Acute exacerbation of CHF (congestive heart failure) Code(s): I50.9 - HEART FAILURE, UNSPECIFIED Status: Chronic Qualifiers: Heart failure type: systolic Qualified Code(s): I50.23 - Acute on chronic systolic (congestive) heart failure (2) FARRAH (acute kidney injury) Code(s): N17.9 - ACUTE KIDNEY FAILURE, UNSPECIFIED Status: Acute (3) Chronic anemia Code(s): D64.9 - ANEMIA, UNSPECIFIED Status: Acute Comment: due to ckd (4) HTN (hypertension) Code(s): I10 - ESSENTIAL (PRIMARY) HYPERTENSION Status: Chronic Qualifiers: Hypertension type: essential hypertension Qualified Code(s): I10 - Essential (primary) hypertension - Plan pt's sob continues to improve -: home when dialysis has been set up -: ef in 2015 was 40% * . Review of Systems - Review of Systems Respiratory: negative: Cough, Dry, Shortness of Breath, Hemoptysis, SOB with Excertion, Pleuritic Pain, Sputum, Wheezing Cardiovascular: negative: chest pain, palpitations, orthopnea, paroxysmal nocturnal dyspnea, edema, light headedness, other Gastrointestinal: negative: Nausea, Vomiting, Abdominal Pain, Diarrhea, Constipation, Melena, Hematochezia, Other Genitourinary: negative: Dysuria, Frequency, Incontinence, Hematuria, Retention , Other - Medications/Allergies Allergies/Adverse Reactions: Allergies Allergy/AdvReac Type Severity Reaction Status Date / Time No Known Allergies Allergy Verified 11/21/18 13:07 Medications: Current Medications Acetaminophen (Tylenol) 650 mg PO Q4H PRN PRN Reason: Headache/Fever/Mild Pain (1-3) Allopurinol (Zyloprim) 100 mg PO DAILY [facility] Last Admin: 11/27/18 13:52 Dose: 100 mg Alprazolam (Xanax) 0.25 mg PO BID PRN PRN Reason: Anxiety Aspirin (Aspirin Chewable) 81 mg PO DAILY [facility] Last Admin: 11/26/18 08:49 Dose: 81 mg Atorvastatin Calcium (Lipitor) 40 mg PO HS [facility] Last Admin: 11/26/18 20:25 Dose: 40 mg Calcium Carbonate (Tums) 1,000 mg PO Q4H PRN PRN Reason: Heartburn or Indigestion Epoetin Bryce (Procrit) 7,500 units SC Q7D [facility] Last Admin: 11/22/18 13:48 Dose: 7,500 units Famotidine (Pepcid) 20 mg PO DAILY [facility] Last Admin: 11/27/18 13:52 Dose: 20 mg Guaifenesin/Dextromethorphan (Robitussin Dm) 15 ml PO Q4H PRN PRN Reason: Cough Heparin Sodium (Porcine) (Heparin) 5,000 units SC BID [facility] Last Admin: 11/27/18 08:50 Dose: Not Given Hydralazine HCl (Apresoline) 25 mg PO BID [facility] Last Admin: 11/27/18 11:52 Dose: Not Given Isosorbide Mononitrate (Imdur Er) 30 mg PO DAILY [facility] Last Admin: 11/26/18 08:49 Dose: 30 mg Ondansetron HCl (Zofran Odt) 4 mg PO Q6H PRN PRN Reason: Nausea/Vomiting Ondansetron HCl (Zofran) 4 mg SLOW IVP Q6H PRN PRN Reason: Nausea/Vomiting Last Admin: 11/25/18 21:54 Dose: 4 mg Polyethylene Glycol (Miralax) 17 gm PO DAILY [facility] Last Admin: 11/27/18 13:54 Dose: Not Given Senna/Docusate Sodium (Senokot S) 2 tab PO BID PRN PRN Reason: Constipation Sodium Chloride (Flush - Normal Saline) 10 ml IVF PRN PRN PRN Reason: Saline Flush Last Admin: 11/24/18 05:57 Dose: 10 ml Sodium Chloride (Flush - Normal Saline) 10 ml IVF Q12HR [facility] Last Admin: 11/27/18 13:53 Dose: 10 ml Tuberculin PPD (Aplisol) 0.1 ml I-DERMAL 1000 [facility] Stop: 11/29/18 10:01 Last Admin: 11/27/18 12:59 Dose: Not Given
--- NOTE | 2018-11-27 18:05 | PRG ---
DATE OF SERVICE: 11/27/2018 SUBJECTIVE: Mr. Hancock is doing much better. He has lost 20 pounds since starting dialysis. He does feel weak, but his shortness of breath is improved. OBJECTIVE: VITAL SIGNS: Blood pressure 102/57, pulse 68, and temperature 97.9. LUNGS: Clear to auscultation. HEART: Regular rate and rhythm. ABDOMEN: Soft, nontender, and nondistended. EXTREMITIES: No edema. PERTINENT LABORATORY DATA: Hemoglobin 10.2. Creatinine 3.8, which is down from 4.7. IMPRESSION: 1. Nonischemic cardiomyopathy. 2. Moderate aortic stenosis (may be underestimated given low LVEF). 3. End-stage renal disease. RECOMMENDATIONS: At this point, continue current medical therapy. He appears to be slowly improving. May need to evaluate his aortic valve on angio. He may have low output aortic stenosis and at this point, it is difficult to assess. Job ID: [id number]
[2018-11-27 20:25] LABS: Platelet Count 131 thou/uL (130-400)
[2018-11-27] MEDS: Atorvastatin Calcium 40 MG TAB PO SCH (21:23)
[2018-11-28 06:51] LABS: Albumin 4.1 g/dL (3.4-4.8); Anion Gap 17 mmol/L (10-20); BUN (Urea Nitrogen) 39 mg/dL (8.4-25.7); BUN/Creatinine Ratio 10.29; Calc. Creatinine Clearance 21 mL/min (70-130); Calcium 9.3 mg/dL (7.8-10.44); Carbon Dioxide 26 mmol/L (23-31); Chloride 100 mmol/L (98-107); Estimated GFR-MDRD 15; Glucose 92 mg/dL (83-110); Phosphorus 3.8 mg/dL (2.3-4.7); Potassium 4.3 mmol/L (3.5-5.1); Sodium 139 mmol/L (136-145)
--- NOTE | 2018-11-28 09:43 | PRG ---
DATE OF SERVICE: 11/28/2018 SUBJECTIVE: Mr. Hancock is a 78-year-old white male, who was admitted for CHF and was seen by Renal Service due to the worsening renal dysfunction. He has been initiated on dialysis. I feel that he has reached ESRD stage. He has been undergoing hemodialysis. He is tolerating said treatment. He had a right upper extremity AV fistula placed yesterday. I examined the fistula. It has a positive bruit. No other complaints. No chest pain or shortness of breath. Please note, he is off his IV furosemide. OBJECTIVE: VITAL SIGNS: Blood pressure 121/56, heart rate 80, respiratory rate 18, temperature 98.6, and pulse ox 94%. GENERAL: Noted to be awake, alert, and comfortable, not in distress. SKIN: Adequate turgor. HEENT: He has pinkish conjunctivae. Anicteric sclerae. NECK: No neck mass. No carotid bruits. No JVD. CHEST: No deformities. LUNGS: Clear breath sounds. No wheezing. No crackles. HEART: Normal sinus rhythm. No murmur. No gallops. No rubs. ABDOMEN: Globular, soft, and nontender. No masses. EXTREMITIES: No edema. No deformities. MEDICATIONS: Medications of November 28, 2018, were reviewed. LABORATORY DATA: Laboratories of November 28, 2018; sodium 139, potassium 4.4, chloride 100, carbon dioxide 26, BUN 39, creatinine 3.79, glucose 92, calcium 9.3, phosphorus 3.8, and albumin 4.1. ASSESSMENT AND PLAN: 1. Chronic renal failure/acute kidney injury - currently on maintenance hemodialysis. I think this patient has reached end-stage renal disease. Continue Tuesday, Tuesday, and Tuesday dialysis. From a renal point of view, this patient can be discharged today. He has outpatient dialysis placement. 2. Congestive heart failure, clinically much improved with dialysis. Please note, he is off diuretics. 3. Anemia, continuing weekly Epogen. Job ID: [id number]
[2018-11-28] MEDS: Allopurinol 100 MG TAB PO SCH (10:12)
[2018-11-28] MEDS: Famotidine 20 MG TAB PO SCH (10:13)
[2018-11-28] MEDS: hydrALAZINE 25 MG TAB PO SCH (10:13)
[2018-11-28] MEDS: Polyethylene Glycol 3350 17 GM Packet PO SCH (10:17)
[2018-11-28] MEDS: Tuberculin PPD 0.1 ML VIAL I-DERMAL SCH (10:50)
[2018-11-28] MEDS: Heparin 5,000 UNITS/ML VIAL SC SCH (12:18)
[2018-11-28 16:30] VITALS: BP 110/59; TEMP 98.8
--- NOTE | 2018-11-28 17:43 | PRG ---
DATE OF SERVICE: 11/28/2018 SUBJECTIVE: Mr. Hancock is doing well today, after Daylin fistula placed yesterday. He has good thrill and bruit in his right Daylin fistula. His surgical wound looks good. The patient should follow up with me in the next 3 to 4 weeks. He exercise the right arm and use it without restrictions. I will see him as needed in this hospitalization. Please call if necessary. Job ID: [id number]
--- NOTE | 2018-11-29 08:13 | PRG ---
DATE OF SERVICE: 11/28/2018 SUBJECTIVE: Mr. Hancock is doing better. He has significant diuresis after recently starting dialysis. OBJECTIVE: VITAL SIGNS: Blood pressure 108/58, pulse 83, and temperature 98. LUNGS: Clear to auscultation. HEART: Regular rate and rhythm. ABDOMEN: Soft, nontender, and nondistended. EXTREMITIES: No edema. IMPRESSION: 1. Nonischemic cardiomyopathy. 2. New onset renal failure. 3. ? Severity of aortic stenosis. RECOMMENDATIONS: From my standpoint, will be okay for discharge home. Continue to try and obtain his ideal body weight. May need to investigate his aortic valve as an outpatient. Job ID: [id number]
--- NOTE | 2018-11-29 11:20 | DIS ---
DATE OF ADMISSION: 11/21/2018 DATE OF DISCHARGE: 11/28/2018 DISCHARGE DIAGNOSES: As of the following; 1. Acute systolic heart failure. 2. Acute kidney injury, transition to dialysis. 3. Chronic anemia. 4. Hypertension. HOSPITAL COURSE: The patient is a very pleasant 78-year-old male with a known history of systolic heart failure, who came to the hospital with complaints of shortness of breath. The patient also was found to have chronic kidney disease stage 4 to 5. The patient initially was put on IV diuretics. However, his creatinine did not improve. He was also put on dobutamine for increased contractility to improve his shortness of breath, which did not really help as much either. At this time, dialysis was ordered for this patient. The patient did have an echocardiogram, his previous one from the other hospital, which was done in 2014 indicated an EF of 40%. However, his echocardiogram here that was done on the 24 of November indicated an EF of 10% to 15%. He had a severely dilated left atrium and severe mitral regurgitation and moderate to severe tricuspid regurgitation. He also had some moderate aortic stenosis. At this time, the patient was started on dialysis. His shortness of breath continues to improve. He will be discharged home and his dialysis has been set up for Tuesday, Tuesday, and Tuesday. The patient will follow up with Cardiology and also with Renal as outpatient. HOME MEDICATIONS: As of the following; 1. Isosorbide 1 p.o. daily. 2. Aspirin 81 mg daily. 3. Coreg 6.25 mg b.i.d. 4. Lisinopril 5 mg daily. 5. Senokot 2 pills b.i.d. 6. Atorvastatin 1 p.o. daily. 7. Allopurinol 1 p.o. daily. Again, he will follow up with primary care doctor and his home administrator. PHYSICAL EXAMINATION: VITAL SIGNS: As of the following; temperature 98.0, heart rate 83, respirations 16, oxygen saturation 93% on room air, blood pressure 108/59. GENERAL: He is awake, alert, and oriented x3. Does not appear in distress. CV: S1 and S2 present. No murmurs, rubs, or gallops. ABDOMEN: Soft and nontender. Bowel sounds are present x2. EXTREMITIES: No edema. Job ID: [id number]
== END 2018-11-28 17:42 | disposition home or self-care (01) | DRG 264 ==
LOC: 2NO 12:07
PROVIDERS: ADMIT Internal Medicine; ATTEND Internal Medicine
PROC: 0JH63XZ Insertion of Tunneled Vascular Access Device into Chest Subcutaneous Tissue and Fascia, Percutaneous Approach (ICD-10-PCS; principal; 2018-11-24)
PROC: 02HV33Z Insertion of Infusion Device into Superior Vena Cava, Percutaneous Approach (ICD-10-PCS; 2018-11-24)
PROC: 5A1D70Z Performance of Urinary Filtration, Intermittent, Less than 6 Hours Per Day (ICD-10-PCS; 2018-11-24)
PROC: 5A1D70Z Performance of Urinary Filtration, Intermittent, Less than 6 Hours Per Day (ICD-10-PCS; 2018-11-25)
PROC: 5A1D70Z Performance of Urinary Filtration, Intermittent, Less than 6 Hours Per Day (ICD-10-PCS; 2018-11-26)
PROC: 031B0ZF Bypass Right Radial Artery to Lower Arm Vein, Open Approach (ICD-10-PCS; 2018-11-27)
PROC: 5A1D70Z Performance of Urinary Filtration, Intermittent, Less than 6 Hours Per Day (ICD-10-PCS; 2018-11-27)
DX: I13.2 Hypertensive heart and chronic kidney disease with heart failure and with stage 5 chronic kidney disease, or end stage renal disease (principal); I50.23 Acute on chronic systolic (congestive) heart failure; N18.6 End stage renal disease; N17.9 Acute kidney failure, unspecified; I42.9 Cardiomyopathy, unspecified; E83.39 Other disorders of phosphorus metabolism; Z66 Do not resuscitate; I35.0 Nonrheumatic aortic (valve) stenosis; D63.1 Anemia in chronic kidney disease; E78.5 Hyperlipidemia, unspecified; M10.9 Gout, unspecified; Z95.810 Presence of automatic (implantable) cardiac defibrillator; Z96.653 Presence of artificial knee joint, bilateral; Z96.641 Presence of right artificial hip joint; Z79.899 Other long term (current) drug therapy
CPT/HCPCS: 36415; 71045; 76770; 80048; 80069; 80076; 81001; 83735; 84443; 85025; 85049; 85610; 85730; 86580; 86704; 86706; 86803; 87340; 90935; 93005; 93010; 93306; 93798; 93970; C1752; C1769; G0257; G0365; J0670; J1250; J1644; J1940; J2001; J2250; J2405; J2720; J2760; J3010; P9047; Q4081

== ENCOUNTER 2019-03-12 08:44 | Outpatient (CLI) | payer MEDICARE ==
[2019-03-12 10:33] LABS: INR-International Normal Ratio 1.4; PTT 35.7 SEC (22.9-36.1); Prothrombin Time 17.2 SEC (12.0-14.7)
[2019-03-12 10:40] LABS: Hemoglobin 11.2 g/dL (14.0-18.0); Mean Corpuscular HGB CONC 33.1 g/dL (32.0-36.0); Mean Corpuscular Hemoglobin 35.6 pg (27.0-31.0); Mean Platelet Volume 8.1 fL (7.4-10.4); Platelet Count 177 thou/uL (130-400); RBC Distribution Width 14.2 % (11.5-14.5); Red Blood Cell (RBC) Count 3.15 mill/uL (4.70-6.10); White Blood Cell (WBC) Count 5.1 thou/uL (4.8-10.8)
[2019-03-12 11:21] LABS: BUN (Urea Nitrogen) 51 mg/dL (8.4-25.7); Calc. Creatinine Clearance 0 mL/min (70-130); Estimated GFR-MDRD 8
[2019-03-12 11:50] LABS: Anion Gap 14 mmol/L (10-20); Calcium 8.7 mg/dL (7.8-10.44); Carbon Dioxide 36 mmol/L (23-31); Chloride 91 mmol/L (98-107); Glucose 95 mg/dL (83-110); Sodium 137 mmol/L (136-145)
--- NOTE | 2019-03-19 17:10 | EKG ---
Test Reason : Blood Pressure : / mmHG Vent. Rate : 076 BPM Atrial Rate : 063 BPM P-R Int : 000 ms QRS Dur : 176 ms QT Int : 510 ms P-R-T Axes : 000 -45 121 degrees QTc Int : 573 ms AV sequential or dual chamber electronic pacemaker Abnormal ECG Confirmed by CASSIE BROCK ([id number]) on 03/19/2019 5:09:53 PM Referred By: NARESH Confirmed By:CASSIE BROCK
== END 2019-03-12 08:45 | disposition home or self-care (01) ==
LOC: LABBT 08:44
PROVIDERS: ATTEND Internal Medicine Cardiovascular Disease
DX: Z01.818 Encounter for other preprocedural examination (principal); I25.5 Ischemic cardiomyopathy; I50.9 Heart failure, unspecified
CPT/HCPCS: 80048; 85027; 85610; 85730; 93005; 93010

== ENCOUNTER 2019-03-14 06:44 | Day surgery (SDC) | payer MEDICARE ==
[2019-03-12 09:05] VITALS: BMI 29.4
[2019-03-14 10:29] LABS: INR-International Normal Ratio 1.4
[2019-03-14 10:30] LABS: PTT 38.1 SEC (22.9-36.1)
[2019-03-14 10:39] LABS: ALT (SGPT) 10 U/L (8-55); AST (SGOT) 21 U/L (5-34); Albumin 2.9 g/dL (3.4-4.8); Alkaline Phosphatase 98 U/L (40-150); Bilirubin, Direct 0.7 mg/dL (0.1-0.3); Bilirubin, Total 1.2 mg/dL (0.2-1.2); Protein, Total 6.2 g/dL (5.8-8.1)
--- NOTE | 2019-03-14 16:16 | ECHO ---
DATE OF SERVICE: 03/14/19 REFERRING PHYSICIAN: Dr. Froy Mckinnon REASON FOR PROCEDURE: The patient is an 79-year-old male with prior history of CHF and ischemic cardiomyopathy and severely reduced LVEF is 23% in the past who presented with recurrent atrial fibrillation and CHF exacerbatio n. He has been initiated on Coumadin and his INR is still suboptimal. He is here for OSVALDO to evaluate intracardiac clots. PROCEDURE: The patient received Propofol by Anesthesia specialist. After adequate level of sedation achieved, a standard transesophageal echocardiogram probe was passed into the esophagus without diff iculty. Patient tolerated the procedure well, no complications noted. RESULTS: Left atrium is severely enlarged about 5.6 cm in horizontal diameter but longer by longitudinal diame ter. The left atrial appendage well visualized contains no definite clot but very heavy spontaneous e cho contrast is seen. The left atrial appendage velocities were 25 cm per second. Four out of four pulmonary veins were clearly seen without flow reversal end systole. No stenosis ambrocio ntified. The mitral valve has mild to moderate regurgitation. It is not stenotic. Left ventricular s ystolic function is reduced with EF estimated about 25 to 30% with global hypokinesis. Dilated left v entricle is also noted. Right sided chambers with mild dilation. Right sided chambers also has multip le ICD/pacemaker wires in appropriate location. Also hemodialysis catheter in place. The small perica rdial effusion is seen by the LV and appendage area and the pericardial sinuses. No hemodynamic compromise noted from the effusion. Moderate pulmonary regurgitation. Moderate eccentr ic aortic regurgitation is seen. Moderate tricuspid regurgitation noted. The aortic valve is scleroti c and mildly stenotic appearing based on visual inspection. The visualized portion of ascending and d escending aorta with moderate atheroma but normal atheroma is seen. No dissection or significant aneu rysm is seen. CONCLUSION: 1. Abnormal transesophageal echocardiogram. 2. No definite left atrial appendage clot but heavy spontaneous echo contrast is seen in the lef t atrial appendage as well as throughout the left atrium with slow flow. 3. Severely reduced left ventricular systolic function. 4. Mild mitral, moderate pulmonary, and aortic regurgitation, mild to moderate tricuspid regurgi tation seen. 5. Mild to moderate aortic stenosis. 6. Right sided ICD wires and dialysis catheter noted in the right atrium. 7. Small pericardial effusion without hemodynamic compromise. PLAN: At this point with the suboptimal INR levels and the heavy spontaneous echo contrast, severely reduce d LVEF we will refrain from cardioversion even though no definite clots were seen. I would like to im prove his anticoagulation status achieving target INR of 2 to 3 prior to planned cardioversion. In e meantime, we might initiate Amiodarone therapy as well.
[2019-03-14] MEDS ORDERED: PROPOFOL 200 MG/20 ML VIAL ONE (16:43)
== END 2019-03-14 11:15 | disposition home or self-care (01) ==
LOC: CCL 06:44
PROVIDERS: ATTEND Internal Medicine Cardiovascular Disease
PROC: B245ZZ4 Ultrasonography of Left Heart, Transesophageal (ICD-10-PCS; principal; 2019-03-14)
DX: I25.5 Ischemic cardiomyopathy (principal); I08.3 Combined rheumatic disorders of mitral, aortic and tricuspid valves; I13.2 Hypertensive heart and chronic kidney disease with heart failure and with stage 5 chronic kidney disease, or end stage renal disease; I50.22 Chronic systolic (congestive) heart failure; N18.6 End stage renal disease; I48.91 Unspecified atrial fibrillation; Z79.899 Other long term (current) drug therapy; Z99.2 Dependence on renal dialysis
CPT/HCPCS: 36415; 80076; 84443; 85610; 85730; 92960; 93312; J2704

== ENCOUNTER 2019-04-05 08:29 | Inpatient (IN) | payer MEDICARE ==
[2019-04-05] MEDS ORDERED: Acetaminophen 325 MG TAB PO PRN (09:30)
[2019-04-05] MEDS ORDERED: Zolpidem Tartrate 5 MG TAB PO PRN (09:30)
[2019-04-05] MEDS ORDERED: Ondansetron ODT 4 MG TAB PO PRN (09:30)
[2019-04-05 09:35] LABS: #Eosinphils 0.1 thou/uL (0.0-0.7); #Lymphocytes 0.9 thou/uL (1.20-3.40); #Monocytes 0.6 thou/uL (0.11-0.59); #Neutrophils 2.7 thou/uL (1.40-6.50); %Basophils 0.9 % (0.0-1.0); %Eosinophils 1.6 % (0.0-10.0); %Monocytes 13.3 % (0.0-10.0); %Neutrophils 63.2 % (42.0-75.0); Hemoglobin 11.1 g/dL (14.0-18.0); Mean Corpuscular HGB CONC 33.2 g/dL (32.0-36.0); Mean Corpuscular Hemoglobin 35.6 pg (27.0-31.0); Platelet Count 164 thou/uL (130-400); RBC Distribution Width 14.4 % (11.5-14.5); Red Blood Cell (RBC) Count 3.11 mill/uL (4.70-6.10); White Blood Cell (WBC) Count 4.2 thou/uL (4.8-10.8)
[2019-04-05 09:41] LABS: INR-International Normal Ratio 2.5; PTT 46.4 SEC (22.9-36.1)
[2019-04-05 09:53] LABS: ALT (SGPT) 12 U/L (8-55); AST (SGOT) 22 U/L (5-34); Albumin 2.8 g/dL (3.4-4.8); Alkaline Phosphatase 87 U/L (40-150); Anion Gap 15 mmol/L (10-20); BUN (Urea Nitrogen) 30 mg/dL (8.4-25.7); Bilirubin, Total 1.4 mg/dL (0.2-1.2); Calc. Creatinine Clearance 0 mL/min (70-130); Calcium 8.4 mg/dL (7.8-10.44); Carbon Dioxide 34 mmol/L (23-31); Chloride 92 mmol/L (98-107); Estimated GFR-MDRD 13; Globulin 3.4 g/dL (2.4-3.5); Glucose 80 mg/dL (83-110); Potassium 3.6 mmol/L (3.5-5.1); Protein, Total 6.2 g/dL (5.8-8.1); Sodium 137 mmol/L (136-145)
--- NOTE | 2019-04-05 09:53 | RAD ---
XR Chest Pa Lat STANDARD HISTORY: CHF COMPARISON: 11/14/2018 FINDINGS: The heart is enlarged. The aorta is tortuous. A left-sided AICD remains in place. A small l eft pleural effusion is present. There is no evidence of dimas pulmonary edema.
--- NOTE | 2019-04-05 10:37 | HP ---
PRIMARY CARE PROVIDER: Dr. Bailey. REFERRING PHYSICIAN: To the emergency department, Dr. Keven Pereyra and also involved Dr. Hernán Castaneda. HISTORY OF PRESENT ILLNESS: The patient was sent for admission for paracentesis. He has 5 months increasing abdominal girth, which has not been removed by his hemodialysis. No nausea, vomiting, abdominal pain, or bowel movement change. He is on 3 times a week hemodialysis. I spoke with Dr. Pereyra. He is being taken off his chronic oral anticoagulation in preparation for a planned paracentesis. Dr. Castaneda, the patient's physician for his atrial fibrillation states he cannot be off anticoagulation, this must be bridged with a heparin infusion. Therefore, he is being put in the hospital to stop his Coumadin, bridged with warfarin and plans for eventual paracentesis. PAST MEDICAL HISTORY: End-stage renal disease, on hemodialysis; cardiomyopathy; hypertension; and atrial fibrillation. MEDICATIONS: 1. Isosorbide mononitrate 30 mg a day. 2. Warfarin 2.5 mg daily Tuesday, Tuesday; two tablets Tuesday, , Tuesday, Tuesday; one tablet Tuesday also. 3. Amiodarone 200 mg a day. 4. Allopurinol 50 mg a day. 5. Hydralazine 25 mg once a day. 6. Atorvastatin 40 mg a day. 7. Coreg 25 mg once a day. 8. Amlodipine 5 mg once a day. ALLERGIES: NO KNOWN DRUG ALLERGIES. PAST SURGICAL HISTORY: Bilateral total knee replacement, bilateral total hip replacement, left ankle prosthesis, fistula on right wrist, bilateral cataract surgery, and AICD. FAMILY HISTORY: Mother and father both of old age. No inheritable diseases. The patient is . at bedside. Full code status. 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 No tobacco. No alcohol. REVIEW OF SYSTEMS: GENERAL: He got up to go to the bathroom a couple of days ago, got dizzy and fell. He did not blackout. He stated he just got up too fast. Otherwise, he has had no dizziness, fainting, fever, or chills. EYES: No double vision, blurred vision, or flashing light. 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 No ear pain or drainage. No nasal bleeding. No trouble swallowing. CARDIAC: No chest pain, orthopnea, or paroxysmal nocturnal dyspnea. RESPIRATIONS: He has cough productive of mucoid sputum specially after meals. No asthma or wheezing. GASTROINTESTINAL: See present illness. GENITOURINARY: Scant urine. No pain or blood. MUSCULOSKELETAL: He occasionally swells in his legs, goes away with hemodialysis. No pain in his legs. NEUROLOGIC: No strokes, seizures, or focal weakness. PSYCHIATRIC: No anxiety or depression. SKIN: No bruising, bleeding, or rash. HEME/LYMPH: No tender or swollen lymph nodes in axilla, inguinal, or cervical area. PHYSICAL EXAMINATION: VITAL SIGNS: Blood pressure 100/53, pulse 62, respirations 18, and temperature 98.1. GENERAL: He is alert, oriented, cooperative, pleasant gentleman, in no distress. HEENT: Examination of his head, eyes, ears, nose, and throat revealed pupils equal and round with implants. Extraocular movements are intact. Sclerae are white. Tympanic membranes are clear. Nose is clear. Oral mucous membranes are wet. Dental hygiene is good. NECK: No jugular venous distention, adenopathy, or thyromegaly. CHEST: Clear to auscultation and percussion. HEART: Irregular rate and rhythm. Variable first and second second heart sounds. No appreciated murmurs. ABDOMEN: Distended, dull to percussion with a fluid wave. No palpable hepatosplenomegaly or mass. EXTREMITIES: Trace edema with no cyanosis or clubbing. PULSES: Carotid, radial, femoral, and dorsalis pedis pulses intact. SKIN: Warm and dry without bruises or rash. HEME/LYMPH: No tender or swollen lymph nodes in axilla, inguinal, or cervical area. NEUROLOGIC: Cranial nerves 2 through 12 are intact. Deep tendon reflexes symmetric. Moves all extremities. DIAGNOSTIC STUDIES: Chest x-ray, EKG, CBC, comp metabolic profile, and PT/INR have been ordered. I was called to admit the patient before the studies were ordered. We will review when available. ADMITTING DIAGNOSES: Ascites, chronic anticoagulation, end-stage renal disease on hemodialysis, hypertension, atrial fibrillation, and cardiomyopathy. PLAN: Coumadin will be stopped. PT/INR will be ordered daily. Cardiology, heparin protocol will be instituted. When the patient's PT/INR is low enough, he will undergo a paracentesis diagnostic and therapeutic. Continue home medications. Review when appropriate. Job ID: [id number]
[2019-04-05 11:13] VITALS: BMI 30.2
[2019-04-05] MEDS: Heparin 10,000 UNITS/ 10 ML VIAL SLOW IVP SCH (12:31)
[2019-04-05] MEDS: Heparin 25,000 units/D5W 500 ML IVPB SCH (12:33)
--- NOTE | 2019-04-05 15:49 | PDOC.EVN ---
Event Note - Event Note Event Note: requires inpt status for iv heparin infusion while PT\INR normalizes to prevent embolic CVA
[2019-04-05 19:32] LABS: Hemoglobin 11.2 g/dL (14.0-18.0); Platelet Count 164 thou/uL (130-400)
[2019-04-05 20:11] LABS: PTT 140.9 SEC (22.9-36.1)
--- NOTE | 2019-04-05 23:24 | CON ---
DATE OF CONSULTATION: HISTORY OF PRESENT ILLNESS: Mr. Hancock is an 79-year-old white male with known history of ESRD, currently on maintenance hemodialysis and has been admitted for progressive ascites. In spite of aggressive fluid removal, the ascites remains unimproved. Unusually, he is not able to tolerate a big amount of fluid removal with dialysis. The plan was initially for him to undergo therapeutic/diagnostic paracentesis. However, discontinuation of his oral Coumadin was not feasible since the patient is high risk to develop a thromboembolic phenomenon. This case was discussed at length with Dr. Castaneda, who recommended to bridge the patient with heparin. We are now being consulted for his maintenance hemodialysis. REVIEW OF SYSTEMS: No chest pain. Positive for abdominal swelling. Mild shortness of breath. No nausea. No vomiting. No syncopal episode. No productive cough. No fever or chills. No gross hematuria. No dysuria. No frequency. No hematochezia. No melena. No hematemesis. HOME MEDICATIONS: Included Imdur 30 mg tablet daily, Coumadin as directed, amiodarone 200 mg once a day, allopurinol 50 mg once a day, hydralazine 25 mg once a day, Atorvastatin 40 mg nightly, Coreg 25 mg b.i.d. ? and amlodipine 5 mg tablet once a day. PAST MEDICAL HISTORY: 1. ESRD, currently on maintenance hemodialysis. 2. Hyperlipidemia. 3. Atrial fibrillation. 4. Status post CHF. 5. Longstanding hypertension. 6. Chronic NSAID intake. 7. DJD. 8. Cardiomyopathy? PAST SURGICAL HISTORY: Status post cuffed hemodialysis catheter placement, status post cardiac cath, status post left shoulder joint surgery, status post colonoscopy, status post left ankle surgery, status post bilateral knee surgery, history of bilateral total knee replacement, bilateral total hip replacement, left ankle prosthesis, status post AV fistula, status post bilateral cataract surgery, and status post AICD. SOCIAL HISTORY: The patient is . Lives in [place]. 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 Alcohol rarely. No children. No drug abuse. No blood transfusion. Education, college graduate. ALLERGIES: NONE. TRAUMA: Status post left shoulder joint dislocation. IMMUNIZATION: Up to date. HOSPITALIZATIONS: Please see past medical history. FAMILY HISTORY: No family history of ESRD. PHYSICAL EXAMINATION: VITAL SIGNS: Blood pressure is noted at 95/55, heart rate 67, respiratory rate 16, temperature 97.5, and pulse oximetry 95%. GENERAL: Noted to be awake, alert, comfortable, not in overt distress. SKIN: Adequate turgor. HEENT: He has pinkish conjunctivae. Anicteric sclerae. NECK: No neck mass. No carotid bruits. No JVD. CHEST: No deformities. LUNGS: Clear breath sounds. HEART: Irregularly irregular. No murmur. No gallops. No rubs. ABDOMEN: Globular, soft, nontender. Positive for ascites. EXTREMITIES: Positive for edema. NEUROLOGICAL: Awake and oriented to 3 spheres. Moving all extremities. No tremors. No asterixis. No ataxia. LABORATORY DATA: April 05, 2019, white count 4.2, hemoglobin 11.1. Sodium 137, potassium 3.6, chloride 92, carbon dioxide 34, BUN 30, creatinine 4.32, glucose 80, calcium 8.4, total bilirubin 1.4, AST 22, ALT 12, albumin 2.8, and TSH 2.5. PTT 140.9. April 05, 2019, INR is 2.5. ASSESSMENT AND PLAN: 1. End stage renal disease, stable. We will continue current hemodialysis regimen of Tuesday, Tuesday, and Tuesday. We will avoid using any heparin since the patient is on a heparin drip. 2. Atrial fibrillation - the patient at high risk for thromboembolic phenomenon. Coumadin on hold. Currently, on heparin drip. Once INR is much improved, consider for scheduled therapeutic paracenteses. 3. Ascites, this is secondary to his congestive heart failure/right heart failure. For future paracenteses, awaiting for normalization or near normalization of his INR. 4. Cardiomyopathy/congestive heart failure, clinically asymptomatic, maxing out fluid removal with dialysis. Overall, agree with current management. Job ID: [id number]
[2019-04-06 06:18] LABS: #Eosinphils 0.1 thou/uL (0.0-0.7); #Monocytes 0.6 thou/uL (0.11-0.59); %Basophils 0.9 % (0.0-1.0); %Eosinophils 1.9 % (0.0-10.0); %Monocytes 11.7 % (0.0-10.0); %Neutrophils 63.5 % (42.0-75.0); Hemoglobin 10.8 g/dL (14.0-18.0); Mean Corpuscular HGB CONC 32.4 g/dL (32.0-36.0); Mean Corpuscular Hemoglobin 34.9 pg (27.0-31.0); Mean Platelet Volume 8.2 fL (7.4-10.4); Platelet Count 166 thou/uL (130-400); RBC Distribution Width 14.6 % (11.5-14.5); Red Blood Cell (RBC) Count 3.08 mill/uL (4.70-6.10); White Blood Cell (WBC) Count 4.7 thou/uL (4.8-10.8)
[2019-04-06 06:24] LABS: INR-International Normal Ratio 2.5; Prothrombin Time 27.4 SEC (12.0-14.7)
[2019-04-06 06:37] LABS: Anion Gap 14 mmol/L (10-20); BUN (Urea Nitrogen) 36 mg/dL (8.4-25.7); Calc. Creatinine Clearance 16 mL/min (70-130); Calcium 8.3 mg/dL (7.8-10.44); Carbon Dioxide 33 mmol/L (23-31); Chloride 92 mmol/L (98-107); Estimated GFR-MDRD 11; Glucose 102 mg/dL (83-110); Potassium 3.5 mmol/L (3.5-5.1); Sodium 135 mmol/L (136-145)
--- NOTE | 2019-04-06 10:03 | PRG ---
DATE OF SERVICE: 04/06/2019 SUBJECTIVE: Mr. Hancock is an 79-year-old white male with known history of ESRD, was admitted for a planned paracentesis. Due to the fact that the patient has been anticoagulated. He has been admitted for a bridging anticoagulation with heparin. INR today was still elevated to 2.5. Currently, he is on IV heparin drip. As per recommendation with Cardiology, the patient could not be appropriately stopped with his Coumadin due to his high risk of thromboembolic phenomenon. No new complaints. He is currently undergoing hemodialysis today. No complaints of chest pain or shortness of breath. He does complains of abdominal fullness. OBJECTIVE: VITAL SIGNS: Blood pressure is 103/60, heart rate 63, respiratory rate 16, temperature 97.5, and pulse ox 94%. GENERAL: Awake, alert, supine, and comfortable, not in distress. SKIN: Adequate turgor. HEENT: Slightly pale conjunctivae. Anicteric sclerae. NECK: No neck mass. No carotid bruits. No JVD. CHEST: No deformities. LUNGS: Clear breath sounds. No wheezing. No crackles. HEART: Normal sinus rhythm. No murmur. No gallops. No rubs. ABDOMEN: Globular, soft, and nontender. No masses. Positive for ascites. EXTREMITIES: Trace edema. No deformities. MEDICATIONS: Medications of April 06, 2019, was reviewed. LABORATORY DATA: Laboratories of April 06, 2019; white count 4.7, hemoglobin 10.8, and hematocrit 33.2. Sodium 135, potassium 3.5, chloride 92, carbon dioxide 33, BUN 36, creatinine 5.08, glucose 102, and calcium 8.3. ASSESSMENT AND PLAN: 1. End-stage renal disease. Continuing Tuesday, Tuesday, and Tuesday hemodialysis regimen. Fluid removal as tolerated by the patient. We are maxing fluid removal. 2. Anemia. Start Epogen 7500 units subcu every week. 3. Ascites - for planned paracentesis, once the INR is more acceptable. Continue to hold off Coumadin on a bridging IV heparin drip. 4. Atrial fibrillation/cardiomyopathy on anticoagulation. Overall agree with current management. Job ID: [id number]
--- NOTE | 2019-04-06 13:59 | CON ---
DATE OF CONSULTATION: REASON FOR CONSULTATION: Oral anticoagulation guidance and medication therapy. HISTORY OF PRESENT ILLNESS: Mr. Hancock is a gentleman known to our practice for history of chronic systolic heart failure with inclusion of a biventricular ICD. When he was seen in the past month or so, he was found to have newly diagnosed atrial fibrillation that had been persisting since mid November. He was started on warfarin for oral anticoagulation given his end-stage renal disease. He had also at that point been found to have worsening heart failure and fluid retention, but recently had been started on hemodialysis. Despite his regular dialysis, he has continued to have increasing fluid accumulation and now ascites. He is followed by Dr. Keven Pereyra for his end-stage renal disease. It is recommended the patient undergo both a therapeutic and diagnostic paracentesis, but there is concern with his concurrent oral anticoagulation with his INR is between 2 and 3. With the patient's newly found atrial arrhythmias, he was recently admitted for OSVALDO and possible cardioversion earlier this month. At that time, OSVALDO did not reveal any definitive cardiac clots. However, there was heavy spontaneous echo contrast seen in the left atrial appendage as well as to the left atrium with slow flow, considering his subtherapeutic INRs and severely reduced LVEF by refrain from cardioversion at that time. I have been asked to help manage anticoagulation during this desired paracentesis. Mr. Hancock is currently in dialysis. He does not have any significant complaints , but does have cough and swelling. REVIEW OF SYSTEMS: GENERAL: He has had some weakness, dizziness, and recent falls associated with quick position changes. He denies any true passing-out episodes , fevers, or chills. HEENT: Deaf in one year. He denies any difficulty swallowing, nasal drainage, or congestion. He has not had any vision changes or speech changes. CARDIAC: Denies heart racing, palpitations, or chest pain. PULMONARY: Positive for productive cough. Denies wheezing. Some increasing shortness of breath. GI: Negative for nausea, vomiting, or diarrhea. Positive for increasing abdominal girth and pressure in his abdomen. SKIN: Negative for increased bruising, bleeding, or rashes. PAST MEDICAL HISTORY: 1. Acute on chronic systolic heart failure with ischemic cardiomyopathy, LVEF 20 % to 25%. Echo on 11/12/2018 reveals 10% to 15% EF with severe MR, moderate and [id number] TR. 2. Biventricular ICD on 02/25/2015 with [employer] Viva Quad XT WELD FITTER-D. 3. End-stage renal disease, requiring hemodialysis. 4. Hypertension. 5. Persistent atrial fibrillation. 6. CHADS-VASc score of </=4, currently on warfarin for stroke prophylaxis, initially labile INRs. ALLERGIES: NONE. HOME MEDICATIONS: Include: 1. Warfarin as directed. 2. Isosorbide mononitrate 1 tablet daily. 3. Fenofibrate 67 mg daily. 4. Coreg 25 mg p.o. b.i.d. 5. Atorvastatin one tablet daily. 6. Amlodipine 5 mg daily. 7. Amiodarone 200 mg p.o. b.i.d. 8. Allopurinol 50 mg p.o. daily. 9. Hydralazine 25 mg p.o. daily. FAMILY HISTORY: Noncontributory. SOCIAL HISTORY: He is . Denies alcohol, tobacco, or illicit drug use. PHYSICAL EXAMINATION: VITAL SIGNS: Temperature 97.5, pulse 63, blood pressure 103/60, respirations 16 , and oxygen is 94% on room air. GENERAL: The patient is alert and oriented. Speech is clear. Affect is appropriate. He is resting comfortably in his bed during his dialysis treatment. He does feel some weak reportedly. HEART: Rate is irregularly irregular. LUNGS: Clear to auscultation. ABDOMEN: Distended with ascites evident. EXTREMITIES: Warm and dry to touch without clubbing, cyanosis, or edema. NEUROLOGIC: Grossly intact and nonfocal. Gait was not assessed. LABORATORY DATA: INR 2.5. Hematology is unremarkable. Chemistry; potassium 3.5. ALT and AST within normal limits. Creatinine 5.08. Sodium 135. Telemetry and EKG, not available. IMPRESSION: 1. Persistent atrial fibrillation. 2. CHADS-VASc score of >/=4, started on warfarin with labile INRs and slow flow seen on OSVALDO through the left atrium and also through the left atrial appendage resulting in no cardioversion earlier this month. 3. Acute on chronic systolic heart failure with ascites. 4. End-stage renal disease, on hemodialysis. 5. Ascites. 6. Biventricular ICD in-situ. PLAN AND RECOMMENDATIONS: At this point in light of Mr. Hancock's ongoing atrial arrhythmias in addition to the recent PE that was performed, showing slow flow through the left atrial appendage in the left atrium and despite concurrent warfarin therapy with suboptimal INR. I would refrain from reversing his warfarin or letting his INR fell subtherapeutic without bridge therapy with heparin for his upcoming paracentesis. This is discussed with Dr. Huddleston and Dr. Pereyra. His warfarin is currently on hold, but he is on heparin drip. He will require bridge therapy until his INRs are returned between the optimal range of 2 and 3 following his paracentesis. Recommend not resuming his home amiodarone due to liver disease and recently inconsistent anticoagulation. Thank you for allowing me to participate in the care of this patient. Job ID: [id number] [email or web address]
[2019-04-06] MEDS: Heparin 10,000 UNITS/ 10 ML VIAL SLOW IVP SCH (14:14)
--- NOTE | 2019-04-06 15:11 | PDOC.EVN ---
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
[2019-04-06] MEDS: EPOETIN ALFA-EPBX (ESRD) 4,000 UNIT/ML VIAL SC SCH (16:50)
--- NOTE | 2019-04-06 17:02 | PDOC.PN ---
- Subjective Encounter Start Date: 04/06/19 Encounter Start Time: 16:55 Patient sitting up in bed with at bedside, he reports feeling better today. He denies chest pain, palpitations, shortness of breath. He reports some pressure on his abdomen. He is s/p dialysis. INR 2.5 - Objective Resuscitation Status - Order Detail: 04/05/19 09:26 Resuscitation Status Routine Resuscitation Status: FULL: Full Resuscitation MAR Reviewed: Yes Vital Signs & Weight: Vital Signs (12 hours) Temp Pulse Resp BP Pulse Ox 04/06/19 16:38 98.1 F 67 18 105/56 L 95 04/06/19 13:00 97.8 F 63 18 115/58 L 94 L Weight Weight 211 lb I&O: 04/05/19 04/06/19 04/07/19 06:59 06:59 06:59 Intake Total 1009.2 Balance 1009.2 Result Diagrams: 04/06/19 06:02 04/06/19 06:02 Radiology Reviewed by me: Yes Phys Exam - Physical Examination Constitutional: NAD HEENT: moist MMs, oral pharynx no lesions Neck: supple Respiratory: no wheezing, clear to auscultation bilateral Irregular irregular Gastrointestinal: soft, positive bowel sounds Ascites noted Musculoskeletal: pulses present Neurological: normal sensation, moves all 4 limbs Psychiatric: normal affect, A&O x 3 Skin: no rash, cap refill <2 seconds Dx/Plan (1) CKD (chronic kidney disease) stage 5, GFR less than 15 ml/min Code(s): N18.5 - CHRONIC KIDNEY DISEASE, STAGE 5 Status: Acute (2) Chronic anemia Code(s): D64.9 - ANEMIA, UNSPECIFIED Status: Acute Comment: due to ckd (3) Acute exacerbation of CHF (congestive heart failure) Code(s): I50.9 - HEART FAILURE, UNSPECIFIED Status: Chronic Qualifiers: Heart failure type: systolic Qualified Code(s): I50.23 - Acute on chronic systolic (congestive) heart failure (4) Dyslipidemia Code(s): E78.5 - HYPERLIPIDEMIA, UNSPECIFIED Status: Chronic (5) HTN (hypertension) Code(s): I10 - ESSENTIAL (PRIMARY) HYPERTENSION Status: Chronic Qualifiers: Hypertension type: essential hypertension Qualified Code(s): I10 - Essential (primary) hypertension - Plan cont current plan of care, plan discussed w/ family * Continue Heparin and hold Coumadin, INR 2.5 * Await for paracentesis * Nephrology following, continue dialysis Tuesday, Tuesday and Tuesday * Continue home medications * Symptomatic treatment * Add PT/OT * Add Protonix for GERD
[2019-04-06] MEDS: Carvedilol 25 MG TAB PO SCH (21:04)
[2019-04-06] MEDS: Heparin 25,000 units/D5W 500 ML IVPB SCH (21:26)
[2019-04-06] MEDS: Atorvastatin Calcium 40 MG TAB PO SCH (21:30)
[2019-04-06] MEDS: Amiodarone 200 MG TAB PO SCH (21:30)
[2019-04-07 02:39] LABS: INR-International Normal Ratio 2.5; Prothrombin Time 27.4 SEC (12.0-14.7)
[2019-04-07] MEDS: Allopurinol 100 MG TAB PO SCH (07:56)
[2019-04-07] MEDS: Amiodarone 200 MG TAB PO SCH ×2 (07:57→21:22)
[2019-04-07] MEDS: Carvedilol 25 MG TAB PO SCH (07:58)
[2019-04-07] MEDS: Amlodipine 5 MG TAB PO SCH (07:58)
[2019-04-07] MEDS: hydrALAZINE 25 MG TAB PO SCH (07:59)
[2019-04-07] MEDS: Pantoprazole 40 MG VIAL IVP SCH (08:05)
[2019-04-07 09:06] LABS: Platelet Count 167 thou/uL (130-400)
--- NOTE | 2019-04-07 11:28 | PRG ---
DATE OF SERVICE: 04/07/2019 SUBJECTIVE: Mr. Hancock is an 79-year-old white male with ESRD followed up by the [facility] for his maintenance hemodialysis. He underwent hemodialysis without any difficulty yesterday. He was initially admitted due to progressive ascites, which we were unable to do hemodialysis alone. He has been short of breath with this and very uncomfortable. The plan is for him to undergo diagnostic as well as therapeutic paracentesis. However, we are unable to do this due to his elevated INR. He is now admitted for initiation of heparin drip, possible discontinuation of his Coumadin. INR remains unchanged. Still 2.5. My plan is to give 3 units of FFP. Hopefully, this could lower the INR low enough that we can proceed with the paracentesis. No other complaints today. OBJECTIVE: VITAL SIGNS: Blood pressure is 109/58, heart rate 65, respiratory rate 20, temperature 97.8, and pulse ox 97%. GENERAL: Awake, alert, supine, comfortable, not in distress. SKIN: Adequate turgor. HEENT: Pinkish conjunctivae. Anicteric sclerae. NECK: No neck mass. No carotid bruits. No JVD. CHEST: No deformities. LUNGS: Clear breath sounds. HEART: Normal sinus rhythm. No murmur. No gallops. No rubs. ABDOMEN: Globular, soft, nontender. No masses. EXTREMITIES: No edema. No deformities. MEDICATIONS: Medications of April 07, 2019, was reviewed. LABORATORY DATA: Laboratories of April 07, 2019; PTT 85.4, INR 2.5, hemoglobin 11. On April 06, 2019; sodium 135, potassium 3.5, chloride 92, carbon dioxide 33, BUN 36, creatinine 5.08, glucose 102, calcium 8.3. ASSESSMENT AND PLAN: 1. Ascites - for planned paracentesis once the patient's INR is acceptable. INR is noted to be 2.5. We will give 2 units of FFP today. 2. Chronic atrial fibrillation/cardiomyopathy. Currently, on IV heparin drip. Heparin drip will be discontinued an hour prior to the said procedure once INR has stabilized. 3. End-stage renal disease, stable. We will continue current Tuesday, Tuesday, and Tuesday hemodialysis regimen. 4. Anemia, on weekly Epogen. Continue current management. Job ID: [id number]
--- NOTE | 2019-04-07 14:20 | PDOC.PN ---
- Subjective Encounter Start Date: 04/07/19 Encounter Start Time: 09:40 Doing ok today. No specific complaints. - Objective Resuscitation Status - Order Detail: 04/05/19 09:26 Resuscitation Status Routine Resuscitation Status: FULL: Full Resuscitation Vital Signs & Weight: Vital Signs (12 hours) Temp Pulse Resp BP BP BP BP 04/07/19 11:46 97.6 F 61 18 102/65 04/07/19 08:00 04/07/19 07:59 65 109/58 L 04/07/19 07:58 65 109/58 L 04/07/19 07:54 97.8 F 65 20 109/58 L 04/07/19 04:00 97.9 F 67 22 H 105/61 Pulse Ox 04/07/19 11:46 99 04/07/19 08:00 97 04/07/19 07:59 04/07/19 07:58 04/07/19 07:54 97 04/07/19 04:00 97 Weight Weight 211 lb I&O: 04/06/19 04/07/19 04/08/19 06:59 06:59 06:59 Intake Total 1009.2 393.2 Balance 1009.2 393.2 Result Diagrams: 04/07/19 08:48 04/06/19 06:02 Phys Exam - Physical Examination Constitutional: NAD Respiratory: no wheezing, no rales, no rhonchi, clear to auscultation bilateral Cardiovascular: RRR, no significant murmur, no rub Gastrointestinal: soft, non-tender, positive bowel sounds Very large ascites, but not tense. Trace edema Psychiatric: normal affect, A&O x 3 Dx/Plan (1) Ascites Code(s): R18.8 - OTHER ASCITES Status: Acute (2) Acute exacerbation of CHF (congestive heart failure) Code(s): I50.9 - HEART FAILURE, UNSPECIFIED Status: Chronic Qualifiers: Heart failure type: systolic Qualified Code(s): I50.23 - Acute on chronic systolic (congestive) heart failure (3) CKD (chronic kidney disease) stage 5, GFR less than 15 ml/min Code(s): N18.5 - CHRONIC KIDNEY DISEASE, STAGE 5 Status: Acute (4) Chronic anemia Code(s): D64.9 - ANEMIA, UNSPECIFIED Status: Acute Comment: due to ckd (5) Dyslipidemia Code(s): E78.5 - HYPERLIPIDEMIA, UNSPECIFIED Status: Chronic (6) HTN (hypertension) Code(s): I10 - ESSENTIAL (PRIMARY) HYPERTENSION Status: Chronic Qualifiers: Hypertension type: essential hypertension Qualified Code(s): I10 - Essential (primary) hypertension (7) Tricuspid regurgitation Code(s): I07.1 - RHEUMATIC TRICUSPID INSUFFICIENCY Status: Acute (8) Right heart failure Status: Acute - Plan * He has severe cardiomyopathy with low flow state and high risk of thrombus formation. * On coumadin daily. * Has developed significant ascites. * He is dialysis dependent and has not been able to tolerate large volume fluid removal at HD (presumably due to hypotension). * Plan is for paracentesis when INR acceptable. Still 2.5 today. Has not changed at all. * Still on Heparin gtt as safety net for when the INR does start to decline. * Patient indicated Dr. Pereyra planned FFP. * Anticipate the paracentesis will be Tuesday. * Dr. Pereyra and Dr. Castaneda following.
[2019-04-07] MEDS: Carvedilol 6.25 MG TAB PO SCH (21:22)
[2019-04-07] MEDS: Atorvastatin Calcium 40 MG TAB PO SCH (21:22)
[2019-04-08] MEDS: Heparin 25,000 units/D5W 500 ML IVPB SCH (02:18)
[2019-04-08 07:56] LABS: INR-International Normal Ratio 2.1; Prothrombin Time 23.7 SEC (12.0-14.7)
[2019-04-08 07:57] LABS: PTT 77.4 SEC (22.9-36.1)
[2019-04-08] MEDS: Allopurinol 100 MG TAB PO SCH (08:54)
[2019-04-08] MEDS: Amiodarone 200 MG TAB PO SCH ×2 (08:56→20:04)
[2019-04-08] MEDS: Amlodipine 5 MG TAB PO SCH (08:57)
[2019-04-08] MEDS: Pantoprazole 40 MG VIAL IVP SCH (08:58)
[2019-04-08] MEDS: hydrALAZINE 25 MG TAB PO SCH (08:58)
[2019-04-08] MEDS: Carvedilol 6.25 MG TAB PO SCH ×2 (09:08→20:06)
--- NOTE | 2019-04-08 12:24 | PDOC.PN ---
- Subjective Encounter Start Date: 04/08/19 Encounter Start Time: 09:50 Feels ok. No new concerns. - Objective Resuscitation Status - Order Detail: 04/05/19 09:26 Resuscitation Status Routine Resuscitation Status: FULL: Full Resuscitation Vital Signs & Weight: Vital Signs (12 hours) Temp Pulse Resp BP BP Pulse Ox 04/08/19 09:08 107/62 04/08/19 08:58 61 107/62 04/08/19 08:57 61 107/62 04/08/19 04:00 97.7 F 72 18 106/62 96 Weight Weight 211 lb I&O: 04/07/19 04/08/19 04/09/19 06:59 06:59 06:59 Intake Total 1706.4 Balance 1706.4 Result Diagrams: 04/07/19 08:48 04/06/19 06:02 Phys Exam - Physical Examination Respiratory: no wheezing, no rales, no rhonchi Cardiovascular: RRR, no significant murmur, no rub Gastrointestinal: soft, non-tender, positive bowel sounds Very distended. 2+ pitting edema of LE's. Psychiatric: normal affect, A&O x 3 Dx/Plan (1) Ascites Code(s): R18.8 - OTHER ASCITES Status: Acute (2) Acute exacerbation of CHF (congestive heart failure) Code(s): I50.9 - HEART FAILURE, UNSPECIFIED Status: Chronic Qualifiers: Heart failure type: systolic Qualified Code(s): I50.23 - Acute on chronic systolic (congestive) heart failure (3) CKD (chronic kidney disease) stage 5, GFR less than 15 ml/min Code(s): N18.5 - CHRONIC KIDNEY DISEASE, STAGE 5 Status: Acute (4) Chronic anemia Code(s): D64.9 - ANEMIA, UNSPECIFIED Status: Acute Comment: due to ckd (5) Dyslipidemia Code(s): E78.5 - HYPERLIPIDEMIA, UNSPECIFIED Status: Chronic (6) HTN (hypertension) Code(s): I10 - ESSENTIAL (PRIMARY) HYPERTENSION Status: Chronic Qualifiers: Hypertension type: essential hypertension Qualified Code(s): I10 - Essential (primary) hypertension (7) Tricuspid regurgitation Code(s): I07.1 - RHEUMATIC TRICUSPID INSUFFICIENCY Status: Acute (8) Right heart failure Status: Acute - Plan * Has developed significant ascites that will not resolve with dialysis. * Has significant right heart failure. * BP is too low to aggressively pull off fluid. * Plan is for paracentesis when INR acceptable. Goal is 1.5 range. * Will discuss FFP with Dr. Pereyra. * Some meds are being held secondary to hypotension. Will continue with the Coreg, isosorbide.
--- NOTE | 2019-04-08 12:40 | HP ---
HISTORY OF PRESENT ILLNESS: Mr. Hancock is an 79-year-old white male with ESRD and followed up by the [facility] Service for his maintenance hemodialysis. He has been having progressive ascites and this has made him symptomatic. He has abdominal fullness and difficulty breathing. Attempt to remove the fluid with dialysis was not successful. For this reason, the patient is scheduled for a therapeutic paracentesis. However, INR is still elevated. He received 3 units of FFP yesterday and the INR improved from 2.5 to 2.1. We will be giving him another 3 units of FFP. In addition, I will recheck an INR later tonight. We will adjust FFP as needed. No complaints today. No chest pain. No shortness of breath. PHYSICAL EXAMINATION: VITAL SIGNS: Blood pressure 107/62, heart rate 61, respiratory rate 18, temperature 97.7, and pulse ox 96%. GENERAL: Awake, alert, comfortable, not in overt distress. SKIN: Adequate turgor. HEENT: He has pinkish conjunctivae. Anicteric sclerae. NECK: No neck mass. No carotid bruits. No JVD. CHEST: No deformities. LUNGS: Clear breath sounds. HEART: Normal sinus rhythm. No murmur. No gallops. No rubs. ABDOMEN: Globular, soft, nontender. Positive for ascites. EXTREMITIES: Positive for edema. MEDICATIONS: Medications of April 08, 2019, reviewed. LABORATORY DATA: Laboratories of April 07, 2019, hemoglobin 11. April 06, 2019, potassium 3.5, BUN 36, creatinine 5.08. ASSESSMENT AND PLAN: 1. End-stage renal disease, stable. We will continue current Tuesday, Tuesday, and Tuesday hemodialysis. Fluid removal as tolerated by the patient. 2. Ascites. Proceed with planned therapeutic paracentesis once the INR is acceptable. 3. Elevated INR-3 units of FFP will be given again today. There was a slight improvement of the INR from 2.5 to 2.1. The patient is currently on a bridging IV heparin regimen. We will recheck another INR later tonight and in a.m. 4. Recheck basic metabolic and CBC in a.m. Job ID: [id number]
[2019-04-08] MEDS: Atorvastatin Calcium 40 MG TAB PO SCH (20:06)
[2019-04-08 20:12] LABS: INR-International Normal Ratio 1.8
[2019-04-09] MEDS: Heparin 25,000 units/D5W 500 ML IVPB SCH (04:25)
[2019-04-09 05:39] LABS: #Eosinphils 0.1 thou/uL (0.0-0.7); #Monocytes 0.5 thou/uL (0.11-0.59); #Neutrophils 2.8 thou/uL (1.40-6.50); %Basophils 0.2 % (0.0-1.0); %Eosinophils 1.1 % (0.0-10.0); %Lymphocytes 23.5 % (21.0-51.0); %Monocytes 11.4 % (0.0-10.0); %Neutrophils 63.8 % (42.0-75.0); Hemoglobin 10.6 g/dL (14.0-18.0); Mean Corpuscular HGB CONC 33.9 g/dL (32.0-36.0); Mean Corpuscular Hemoglobin 36.1 pg (27.0-31.0); Mean Platelet Volume 8.3 fL (7.4-10.4); Platelet Count 162 thou/uL (130-400); RBC Distribution Width 14.5 % (11.5-14.5); Red Blood Cell (RBC) Count 2.94 mill/uL (4.70-6.10); White Blood Cell (WBC) Count 4.4 thou/uL (4.8-10.8)
[2019-04-09 05:44] LABS: INR-International Normal Ratio 1.9; PTT 74.4 SEC (22.9-36.1); Prothrombin Time 21.5 SEC (12.0-14.7)
[2019-04-09 05:59] LABS: Anion Gap 13 mmol/L (10-20); BUN (Urea Nitrogen) 33 mg/dL (8.4-25.7); Calc. Creatinine Clearance 14 mL/min (70-130); Calcium 8.7 mg/dL (7.8-10.44); Carbon Dioxide 30 mmol/L (23-31); Chloride 94 mmol/L (98-107); Estimated GFR-MDRD 9; Glucose 82 mg/dL (83-110); Sodium 133 mmol/L (136-145)
[2019-04-09] MEDS: hydrALAZINE 25 MG TAB PO SCH (08:10)
[2019-04-09] MEDS: Amlodipine 5 MG TAB PO SCH (08:10)
[2019-04-09] MEDS: Amiodarone 200 MG TAB PO SCH ×2 (08:10→20:00)
[2019-04-09 09:55] LABS: Hemoglobin 10.7 g/dL (14.0-18.0); Platelet Count 165 thou/uL (130-400)
--- NOTE | 2019-04-09 09:59 | PDOC.PN ---
- Subjective Encounter Start Date: 04/09/19 Encounter Start Time: 14:00 Subjective: Patient reports some improvement in his shortness of breath. Abdomen still -: quite distended. INR 1.9 this AM so unable to get paracentesis by IR. - Objective Resuscitation Status - Order Detail: 04/05/19 09:26 Resuscitation Status Routine Resuscitation Status: FULL: Full Resuscitation MAR Reviewed: Yes Vital Signs & Weight: Vital Signs (12 hours) Temp Pulse Resp BP BP Pulse Ox 04/09/19 03:22 97.6 F 65 18 113/64 95 04/09/19 01:00 97.8 F 62 18 109/65 98 Weight Weight 211 lb Most Recent Monitor Data Heart Rate from ECG 61 NIBP 107/58 Respiration from ECG 18 I&O: 04/08/19 04/09/19 04/10/19 06:59 06:59 06:59 Intake Total 1706.4 1025 Balance 1706.4 1025 Result Diagrams: 04/09/19 09:32 04/09/19 05:20 Phys Exam - Physical Examination Constitutional: NAD HEENT: moist MMs Respiratory: no wheezing, no rales, no rhonchi Cardiovascular: RRR Gastrointestinal: positive bowel sounds distended, firm, fluid wave, non-tender Neurological: non-focal, moves all 4 limbs Psychiatric: normal affect, A&O x 3 Dx/Plan (1) Ascites Code(s): R18.8 - OTHER ASCITES Status: Acute (2) Acute exacerbation of CHF (congestive heart failure) Code(s): I50.9 - HEART FAILURE, UNSPECIFIED Status: Chronic Qualifiers: Heart failure type: systolic Qualified Code(s): I50.23 - Acute on chronic systolic (congestive) heart failure (3) CKD (chronic kidney disease) stage 5, GFR less than 15 ml/min Code(s): N18.5 - CHRONIC KIDNEY DISEASE, STAGE 5 Status: Acute Comment: on dialysis, unable to draw off extra fluid (4) Chronic anemia Code(s): D64.9 - ANEMIA, UNSPECIFIED Status: Acute Comment: due to ckd (5) Dyslipidemia Code(s): E78.5 - HYPERLIPIDEMIA, UNSPECIFIED Status: Chronic (6) Tricuspid regurgitation Code(s): I07.1 - RHEUMATIC TRICUSPID INSUFFICIENCY Status: Chronic (7) HTN (hypertension) Code(s): I10 - ESSENTIAL (PRIMARY) HYPERTENSION Status: Chronic Qualifiers: Hypertension type: essential hypertension Qualified Code(s): I10 - Essential (primary) hypertension Comment: now running low normal - Plan cont current plan of care, PT/OT, DVT proph w/heparin on heparin drip while off Coumadin, INR still not low enough for IR to feel -: comfortable, though is below 2. Will give more FFP tonight, recheck lab in -: AM and hold heparin if INR less than 1.7. * . - Discharge Day Encounter end time: 14:15
--- NOTE | 2019-04-09 10:01 | PRG ---
DATE OF SERVICE: 04/09/2019 SUBJECTIVE: Mr. Hancock is an 79-year-old white male, followed up by the [facility]al Service for his ESRD. He is undergoing hemodialysis today. Fluid removal only as tolerated. He was initially admitted due to progressive ascites. A plan for paracentesis has been made. However, INR is still elevated. As per recommendation by Radiology, they want the INR to be 1.7 or less. His most recent INR is 1.9. Our plan is to give him 2 more units of FFP. In addition, heparin drip will be discontinued 6 hours before the said paracentesis. He is currently at the dialysis, I am supervising his dialysis, no complaints. OBJECTIVE: VITAL SIGNS: Blood pressure is 113/64, heart rate 65, respiratory rate 18, temperature 97.6, and pulse ox 95%. GENERAL: Awake, alert, comfortable, not in overt distress. SKIN: Adequate turgor. HEENT: Pinkish conjunctivae. Anicteric sclerae. NECK: No neck mass. No carotid bruits. No JVD. CHEST: No deformities. LUNGS: Clear breath sounds. No wheezing. No crackles. HEART: Normal sinus rhythm. No murmurs. No gallops. No rubs. ABDOMEN: Globular, soft, and nontender. No masses. Positive for ascites. EXTREMITIES: Positive for edema. MEDICATIONS: Medications of April 09, 2019, reviewed. LABORATORY DATA: Laboratories of April 09, 2019: White count 4.4, hemoglobin 10.6. Sodium 133, potassium 4, chloride 94, carbon dioxide 30, BUN 33, creatinine 5.81, glucose 82, and calcium 8.7. INR was 1.9. ASSESSMENT AND PLAN: 1. Ascites - consider for possible paracentesis in a.m. Awaiting INR to which 1.7 or less per recommendation by Radiology. We will give 2 more units FFP in the hope that this will bring the INR to 1.7 or lower. 2. End-stage renal disease, stable. Continue current hemodialysis regimen on Tuesday, Tuesday, and Tuesday. Fluid removal as tolerated. 3. Congestive heart failure, clinically asymptomatic. Agree with current management. Job ID: [id number]
[2019-04-09] MEDS: Allopurinol 100 MG TAB PO SCH (13:28)
[2019-04-09] MEDS: Carvedilol 6.25 MG TAB PO SCH ×2 (13:29→19:59)
[2019-04-09] MEDS: Pantoprazole 40 MG VIAL IVP SCH (13:32)
[2019-04-09] MEDS: Atorvastatin Calcium 40 MG TAB PO SCH (20:00)
[2019-04-10 06:48] LABS: INR-International Normal Ratio 1.7; Prothrombin Time 20.2 SEC (12.0-14.7)
[2019-04-10 06:49] LABS: PTT 63.2 SEC (22.9-36.1)
[2019-04-10] MEDS: hydrALAZINE 25 MG TAB PO SCH (08:03)
[2019-04-10] MEDS: Allopurinol 100 MG TAB PO SCH (08:03)
[2019-04-10] MEDS: Carvedilol 6.25 MG TAB PO SCH ×2 (08:03→20:05)
[2019-04-10] MEDS: Amlodipine 5 MG TAB PO SCH (08:04)
[2019-04-10] MEDS: Pantoprazole 40 MG VIAL IVP SCH (08:05)
[2019-04-10] MEDS: Amiodarone 200 MG TAB PO SCH ×2 (08:05→20:05)
--- NOTE | 2019-04-10 09:05 | PDOC.PN ---
- Subjective Encounter Start Date: 04/10/19 Encounter Start Time: 11:00 Subjective: Patient with no changes overnight. INR adequate this AM so heparin being -: held for paracentesis in next few minutes. - Objective Resuscitation Status - Order Detail: 04/05/19 09:26 Resuscitation Status Routine Resuscitation Status: FULL: Full Resuscitation MAR Reviewed: Yes Vital Signs & Weight: Vital Signs (12 hours) Temp Pulse Pulse Resp BP BP BP 04/10/19 08:04 68 04/10/19 08:03 68 104/63 04/10/19 07:13 98 F 68 17 118/75 04/10/19 05:00 97.6 F 62 18 100/62 04/10/19 00:30 97.3 F L 69 69 18 100/62 100/62 04/09/19 21:37 97.8 F 60 18 100/53 L 04/09/19 21:20 97.9 F 62 18 101/59 L Pulse Ox 04/10/19 08:04 04/10/19 08:03 04/10/19 07:13 96 04/10/19 05:00 98 04/10/19 00:30 97 04/09/19 21:37 95 04/09/19 21:20 98 Weight Weight 211 lb Most Recent Monitor Data Heart Rate from ECG 62 NIBP 96/59 Respiration from ECG 18 I&O: 04/09/19 04/10/19 04/11/19 06:59 06:59 06:59 Intake Total 1025 1030 Balance 1025 1030 Result Diagrams: 04/09/19 09:32 04/09/19 05:20 Phys Exam - Physical Examination Constitutional: NAD HEENT: moist MMs Respiratory: no wheezing, no rales, no rhonchi, clear to auscultation bilateral Cardiovascular: RRR, no significant murmur Gastrointestinal: positive bowel sounds distended, fluid wave, non-tender Neurological: non-focal, moves all 4 limbs Psychiatric: normal affect, A&O x 3 Dx/Plan (1) Ascites Code(s): R18.8 - OTHER ASCITES Status: Acute Comment: paracentesis today, possibly home once Coumadin restarted (2) Acute exacerbation of CHF (congestive heart failure) Code(s): I50.9 - HEART FAILURE, UNSPECIFIED Status: Chronic Qualifiers: Heart failure type: systolic Qualified Code(s): I50.23 - Acute on chronic systolic (congestive) heart failure (3) CKD (chronic kidney disease) stage 5, GFR less than 15 ml/min Code(s): N18.5 - CHRONIC KIDNEY DISEASE, STAGE 5 Status: Acute Comment: on dialysis, unable to draw off extra fluid (4) Chronic anemia Code(s): D64.9 - ANEMIA, UNSPECIFIED Status: Acute Comment: due to ckd (5) Dyslipidemia Code(s): E78.5 - HYPERLIPIDEMIA, UNSPECIFIED Status: Chronic (6) Tricuspid regurgitation Code(s): I07.1 - RHEUMATIC TRICUSPID INSUFFICIENCY Status: Chronic (7) HTN (hypertension) Code(s): I10 - ESSENTIAL (PRIMARY) HYPERTENSION Status: Chronic Qualifiers: Hypertension type: essential hypertension Qualified Code(s): I10 - Essential (primary) hypertension Comment: now running low normal - Plan cont current plan of care plan for paracententesis later today, heparin drip on hold until 3 hours -: after procedure later this morning -: restart Warfarin tonight * . - Discharge Day Encounter end time: 11:15
--- NOTE | 2019-04-10 09:48 | PRG ---
DATE OF SERVICE: 04/10/2019 SERVICE: Renal Medicine. SUBJECTIVE: Mr. Hancock is an 79-year-old white male with ESRD and followed up by the [facility]al Service for his maintenance hemodialysis. He was initially admitted for progressive ascites. The planned therapeutic paracentesis has been scheduled this morning. INR is now average at 1.7. No complaints of chest pain or shortness of breath. OBJECTIVE: VITAL SIGNS: Blood pressure is 118/75, heart rate 68, respiratory rate 17, temperature 98, and pulse ox 96%. GENERAL: Noted to be awake, sitting comfortable, not in any distress. SKIN: Adequate turgor. HEENT: He has pinkish conjunctivae. Anicteric sclerae. NECK: No neck mass. No carotid bruits. No JVD. CHEST: No deformities. LUNGS: Clear breath sounds. No wheezing. No crackles. HEART: Normal sinus rhythm. No murmur. No gallops. No rubs. ABDOMEN: Globular, soft. Positive for ascites. EXTREMITIES: Trace edema. MEDICATIONS: Medications of April 10, 2019, reviewed. LABORATORY DATA: Laboratories of April 09, 2019; hemoglobin 10.7. On April 10, 2019; INR is 1.7. ASSESSMENT AND PLAN: 1. End-stage renal disease, stable. We will continue current maintenance hemodialysis on Tuesday, Tuesday, and Tuesday. Tolerating said treatment. 2. Progressive ascites - for therapeutic paracentesis today. INR is now acceptable at 1.7. After the said procedure, consider resuming back Coumadin tonight with this patient - 10 mg one tab at bedtime. Recheck INR tomorrow. 3. Agree with current management. Job ID: [id number]
--- NOTE | 2019-04-10 13:57 | ULT ---
2 views chest. HISTORY: Dyspnea. PA and lateral views of the chest are obtained. The lungs are well aerated. No evidence of active intrathoracic disease seen. No evidence of effusion s, pneumonia or pneumothorax seen. IMPRESSION: unremarkable 2 views chest.
[2019-04-10] MEDS ORDERED: Warfarin Sodium 10 MG TAB PO SCH (17:00)
[2019-04-10] MEDS: Heparin 10,000 UNITS/ 10 ML VIAL SLOW IVP SCH (17:44)
[2019-04-10] MEDS: Atorvastatin Calcium 40 MG TAB PO SCH (20:05)
[2019-04-10] MEDS: Heparin 25,000 units/D5W 500 ML IVPB SCH (21:11)
[2019-04-11 00:19] LABS: PTT 133.8 SEC (22.9-36.1)
[2019-04-11 04:00] LABS: INR-International Normal Ratio 1.6; Prothrombin Time 19.1 SEC (12.0-14.7)
[2019-04-11] MEDS: Allopurinol 100 MG TAB PO SCH (08:39)
[2019-04-11] MEDS: Amiodarone 200 MG TAB PO SCH ×2 (08:39→20:24)
[2019-04-11] MEDS: Carvedilol 6.25 MG TAB PO SCH ×2 (08:40→20:24)
[2019-04-11] MEDS: Amlodipine 5 MG TAB PO SCH (08:40)
[2019-04-11] MEDS: hydrALAZINE 25 MG TAB PO SCH (08:41)
[2019-04-11] MEDS: Pantoprazole 40 MG VIAL IVP SCH (08:41)
[2019-04-11 09:36] LABS: Hemoglobin 11.8 g/dL (14.0-18.0); Platelet Count 169 thou/uL (130-400)
--- NOTE | 2019-04-11 10:19 | PRG ---
DATE OF SERVICE: 04/11/2019 SUBJECTIVE: Mr. Hancock is an 79-year-old white male with ESRD and followed up by the [facility]al Service for his maintenance hemodialysis, doing well with dialysis. He was initially admitted due to progressive ascites. He underwent an ultrasound-guided paracentesis - 6 L was removed. No other complaints today. OBJECTIVE: VITAL SIGNS: Blood pressure is 104/63, heart rate 64, respiratory rate 20, temperature 97.6, and pulse ox 94%. GENERAL: Awake, alert, and comfortable, not in distress. SKIN: Adequate turgor. HEENT: Pinkish conjunctivae. Anicteric sclerae. NECK: No neck mass. No carotid bruits. No JVD. CHEST: No deformities. LUNGS: Clear breath sounds. HEART: Normal sinus rhythm. No murmur. No gallops. No rubs. ABDOMEN: Globular, soft, and nontender. No masses. EXTREMITIES: No edema. LABORATORY DATA: Laboratories of April 11, 2019, hemoglobin 11.8. Sodium 133, potassium 4, chloride 94, carbon dioxide 30, BUN 33, creatinine 5.81, glucose 82, and calcium 8.7. ASSESSMENT AND PLAN: 1. Ascites - status post paracentesis. Six liters of fluid was removed. He tolerated said treatment. 2. Decreased BP - I will discontinue the hydralazine. 3. End-stage renal disease. Continuing current hemodialysis regimen. Attempt to remove as much fluid as possible as long as the patient will tolerate this. Coumadin 10 mg tablet was ordered for tonight. Job ID: [id number]
--- NOTE | 2019-04-11 15:45 | PDOC.PN ---
- Subjective Encounter Start Date: 04/11/19 Encounter Start Time: 14:30 Subjective: Patient much better after paracentesis. No abdominal pain. Less distension. -: Breathing easier. - Objective Resuscitation Status - Order Detail: 04/05/19 09:26 Resuscitation Status Routine Resuscitation Status: FULL: Full Resuscitation MAR Reviewed: Yes Vital Signs & Weight: Vital Signs (12 hours) Temp Pulse Resp BP BP Pulse Ox 04/11/19 08:41 64 04/11/19 08:40 64 104/63 04/11/19 08:00 94 L 04/11/19 04:00 97.6 F 64 20 96/59 L 94 L Weight Weight 211 lb Most Recent Monitor Data Heart Rate from ECG 62 NIBP 96/59 Respiration from ECG 18 I&O: 04/10/19 04/11/19 04/12/19 06:59 06:59 06:59 Intake Total 1030 1840 240 Balance 1030 1840 240 Result Diagrams: 04/11/19 09:30 04/09/19 05:20 Phys Exam - Physical Examination Constitutional: NAD HEENT: moist MMs Respiratory: no wheezing, no rales, no rhonchi Cardiovascular: RRR, no significant murmur Gastrointestinal: soft, positive bowel sounds less distension Neurological: non-focal Psychiatric: normal affect, A&O x 3 Dx/Plan (1) Ascites Code(s): R18.8 - OTHER ASCITES Status: Acute Comment: paracentesis done, possibly home tomorrow if INR starting to come up (2) Acute exacerbation of CHF (congestive heart failure) Code(s): I50.9 - HEART FAILURE, UNSPECIFIED Status: Chronic Qualifiers: Heart failure type: systolic Qualified Code(s): I50.23 - Acute on chronic systolic (congestive) heart failure (3) CKD (chronic kidney disease) stage 5, GFR less than 15 ml/min Code(s): N18.5 - CHRONIC KIDNEY DISEASE, STAGE 5 Status: Acute Comment: on dialysis, unable to draw off extra fluid (4) Chronic anemia Code(s): D64.9 - ANEMIA, UNSPECIFIED Status: Acute Comment: due to ckd (5) Dyslipidemia Code(s): E78.5 - HYPERLIPIDEMIA, UNSPECIFIED Status: Chronic (6) Tricuspid regurgitation Code(s): I07.1 - RHEUMATIC TRICUSPID INSUFFICIENCY Status: Chronic (7) HTN (hypertension) Code(s): I10 - ESSENTIAL (PRIMARY) HYPERTENSION Status: Chronic Qualifiers: Hypertension type: essential hypertension Qualified Code(s): I10 - Essential (primary) hypertension Comment: now running low normal (8) Atrial fibrillation Code(s): I48.91 - UNSPECIFIED ATRIAL FIBRILLATION Status: Chronic Comment: restarting Warfarin - Plan cont current plan of care Patient feeling much better. Coumadin restarted, once INR starts elevating -: can resume home Coumadin dose and d/c home. * . - Discharge Day Encounter end time: 14:40
[2019-04-11] MEDS ORDERED: Warfarin Sodium 10 MG TAB PO SCH (17:00)
[2019-04-11] MEDS: Atorvastatin Calcium 40 MG TAB PO SCH (20:21)
[2019-04-11 22:42] LABS: PTT 116.7 SEC (22.9-36.1)
[2019-04-12] MEDS: Heparin 25,000 units/D5W 500 ML IVPB SCH (04:35)
[2019-04-12 06:53] LABS: INR-International Normal Ratio 1.7; Prothrombin Time 20.3 SEC (12.0-14.7)
[2019-04-12 06:55] LABS: PTT 92.4 SEC (22.9-36.1)
[2019-04-12] MEDS: Amlodipine 5 MG TAB PO SCH (07:57)
[2019-04-12] MEDS: Allopurinol 100 MG TAB PO SCH (07:57)
[2019-04-12] MEDS: Amiodarone 200 MG TAB PO SCH ×2 (07:58→20:50)
[2019-04-12] MEDS: Carvedilol 6.25 MG TAB PO SCH ×2 (07:59→20:56)
[2019-04-12] MEDS: Pantoprazole 40 MG VIAL IVP SCH (08:00)
--- NOTE | 2019-04-12 08:11 | PDOC.PN ---
- Subjective Encounter Start Date: 04/12/19 Encounter Start Time: 12:10 Subjective: Patient doing well. No SOB. No abdominal pain. - Objective Resuscitation Status - Order Detail: 04/05/19 09:26 Resuscitation Status Routine Resuscitation Status: FULL: Full Resuscitation MAR Reviewed: Yes Vital Signs & Weight: Vital Signs (12 hours) Temp Pulse Resp BP BP BP BP 04/12/19 07:59 93/55 L 04/12/19 07:57 64 93/55 L 04/12/19 07:47 98.0 F 64 18 93/55 L 04/12/19 06:00 97.6 F 62 16 106/61 04/12/19 04:00 97.6 F 77 20 123/62 04/12/19 00:00 65 18 100/64 04/11/19 20:24 91/54 L 04/11/19 20:20 Pulse Ox 04/12/19 07:59 04/12/19 07:57 04/12/19 07:47 100 04/12/19 06:00 94 L 04/12/19 04:00 95 04/12/19 00:00 96 04/11/19 20:24 04/11/19 20:20 95 Weight Weight 211 lb Most Recent Monitor Data Heart Rate from ECG 62 NIBP 96/59 Respiration from ECG 18 I&O: 04/11/19 04/12/19 04/13/19 06:59 06:59 06:59 Intake Total 1840 1045 Balance 1840 1045 Result Diagrams: 04/11/19 09:30 04/09/19 05:20 Phys Exam - Physical Examination Constitutional: NAD HEENT: moist MMs Respiratory: no wheezing, no rales, no rhonchi Cardiovascular: RRR Gastrointestinal: soft, positive bowel sounds mod distension, soft, fluid wave Neurological: non-focal Psychiatric: normal affect, A&O x 3 Dx/Plan (1) Ascites Code(s): R18.8 - OTHER ASCITES Status: Acute Comment: paracentesis done, home as soon as INR close to or higher than 2 (2) Acute exacerbation of CHF (congestive heart failure) Code(s): I50.9 - HEART FAILURE, UNSPECIFIED Status: Chronic Qualifiers: Heart failure type: systolic Qualified Code(s): I50.23 - Acute on chronic systolic (congestive) heart failure (3) CKD (chronic kidney disease) stage 5, GFR less than 15 ml/min Code(s): N18.5 - CHRONIC KIDNEY DISEASE, STAGE 5 Status: Acute Comment: on dialysis, unable to draw off extra fluid (4) Chronic anemia Code(s): D64.9 - ANEMIA, UNSPECIFIED Status: Acute Comment: due to ckd (5) Dyslipidemia Code(s): E78.5 - HYPERLIPIDEMIA, UNSPECIFIED Status: Chronic (6) Tricuspid regurgitation Code(s): I07.1 - RHEUMATIC TRICUSPID INSUFFICIENCY Status: Chronic (7) HTN (hypertension) Code(s): I10 - ESSENTIAL (PRIMARY) HYPERTENSION Status: Chronic Qualifiers: Hypertension type: essential hypertension Qualified Code(s): I10 - Essential (primary) hypertension Comment: now running low normal (8) Atrial fibrillation Code(s): I48.91 - UNSPECIFIED ATRIAL FIBRILLATION Status: Chronic Comment: restarting Warfarin - Plan cont current plan of care, DVT proph w/heparin * . - Discharge Day Encounter end time: 12:20
--- NOTE | 2019-04-12 11:35 | PRG ---
DATE OF SERVICE: 04/12/2019 SUBJECTIVE: Mr. Hancock is an 79-year-old white male, followed up for his ESRD and currently on maintenance hemodialysis, tolerating hemodialysis. Adjusting Coumadin dose. Most recent INR is still 1.7. He recently received a large volume paracentesis with several liters of fluid removed. No other complaints today. No chest pain or shortness of breath. OBJECTIVE: VITAL SIGNS: Blood pressure is 93/55, heart rate 64, respiratory rate 18, temperature 98, and pulse ox 100%. GENERAL: Noted to be awake, alert, comfortable, not in distress. SKIN: Adequate turgor. HEENT: Pinkish conjunctivae. Anicteric sclerae. NECK: No neck mass. No carotid bruits. No JVD. CHEST: No deformities. LUNGS: Clear breath sounds. HEART: Normal sinus rhythm. No murmur. No gallops. No rubs. ABDOMEN: Globular, soft, and nontender. No masses. EXTREMITIES: No edema. No deformities. Please note, the patient still has some ascites. MEDICATIONS: Medications of April 12, 2019, reviewed. LABORATORY DATA: Laboratories of April 11, 2019, hemoglobin 11.8. April 12, 2019, INR was 1.7. ASSESSMENT AND PLAN: 1. Ascites - the patient is status post paracentesis. Maxing out fluid removal with dialysis. 2. End-stage renal disease, stable. We will continue current Tuesday, Tuesday, and Tuesday hemodialysis. Maxing out fluid removal as tolerated by this patient. 3. Atrial fibrillation - currently on anticoagulation. Overall agree with current management. Job ID: [id number]
[2019-04-12] MEDS ORDERED: Warfarin Sodium 10 MG TAB PO SCH (17:00)
[2019-04-12] MEDS: Atorvastatin Calcium 40 MG TAB PO SCH (20:51)
[2019-04-13] MEDS: Heparin 25,000 units/D5W 500 ML IVPB SCH (06:02)
[2019-04-13 09:58] LABS: Hemoglobin 11.1 g/dL (14.0-18.0); Platelet Count 163 thou/uL (130-400)
[2019-04-13 09:59] LABS: INR-International Normal Ratio 2.2; Prothrombin Time 24.4 SEC (12.0-14.7)
--- NOTE | 2019-04-13 10:06 | PRG ---
DATE OF SERVICE: 04/13/2019 SERVICE: Renal Medicine. SUBJECTIVE: Mr. Hancock is an 79-year-old white male with ESRD and followed up by the renal service for his maintenance hemodialysis. He is currently undergoing dialysis. I am at the bedside supervising dialysis. He was initially admitted for progressive ascites. He has received therapeutic paracentesis of about 6 L fluid removal. He is feeling better. We are awaiting for his INR to further increase. He received 10 mg of Coumadin. No other complaints today. OBJECTIVE: VITAL SIGNS: Blood pressure 108/65, heart rate 68, respiratory rate 20, temperature 97.4, and pulse oximetry 98%. GENERAL: Awake, alert, comfortable, not in distress. SKIN: Adequate turgor. HEENT: Pinkish conjunctivae. Anicteric sclerae. NECK: No neck mass. No carotid bruits. No JVD. CHEST: No deformities. LUNGS: Clear breath sounds. HEART: Normal sinus rhythm. No murmurs. No gallops. No rubs. ABDOMEN: Globular, soft, and nontender. No masses. EXTREMITIES: No edema. MEDICATIONS: Medications of April 13, 2019, reviewed. LABORATORY DATA: Laboratories of April 13, 2019; PTT 87.2, INR pending. ASSESSMENT AND PLAN: 1. End-stage renal disease, stable. Continue current hemodialysis regimen. Fluid removal as tolerated. Attempt to max out fluid removal due to the previous history of ascites. 2. Atrial fibrillation - continue Coumadin. Consider Coumadin 5 mg tablet at bedtime. 3. Ascites - p.r.n. paracentesis. 4. Okay for discharge from a renal point of view. Job ID: [id number]
[2019-04-13] MEDS: Allopurinol 100 MG TAB PO SCH (13:42)
[2019-04-13] MEDS: Amiodarone 200 MG TAB PO SCH (13:43)
[2019-04-13] MEDS: Amlodipine 5 MG TAB PO SCH (13:43)
[2019-04-13] MEDS: Pantoprazole 40 MG VIAL IVP SCH (13:44)
[2019-04-13] MEDS: Carvedilol 6.25 MG TAB PO SCH (13:44)
[2019-04-13] MEDS: EPOETIN ALFA-EPBX (ESRD) 4,000 UNIT/ML VIAL SC SCH (14:39)
[2019-04-13 16:52] VITALS: BP 99/64; TEMP 97.3
[2019-04-13] MEDS ORDERED: Warfarin Sodium 5 MG TAB PO SCH (17:00)
[2019-04-14] MEDS ORDERED: EPOETIN ALFA-EPBX (ESRD) 4,000 UNIT/ML VIAL SC SCH (09:00)
--- NOTE | 2019-04-16 16:17 | DIS ---
DATE OF ADMISSION: 04/05/2019 DATE OF DISCHARGE: 04/13/2019 DISCHARGE DIAGNOSES: 1. Ascites. 2. End-stage renal disease, on hemodialysis. 3. Acute on chronic systolic congestive heart failure. 4. Chronic anemia. 5. . 6. Dyslipidemia. 7. Tricuspid regurgitation. 8. Right heart failure. HISTORY OF PRESENT ILLNESS: This patient is an 79-year-old male with a history of end-stage renal disease, who is on hemodialysis, followed by Dr. Pereyra. The patient had developed significant abdominal ascites and because of problems with hypotension, the patient was unable to get significant amounts of fluid removed with dialysis. He appeared to be suffering significant right heart failure with tricuspid regurgitation and ultimately, the patient's abdominal girth became problematic to the point he needed to have the fluid drained manually. However, the patient is on anticoagulation because of a low-flow state and atrial fibrillation, now with high risk for thrombosis. Therefore, Dr. Castaneda had recommended the patient come to the hospital, to be bridged from warfarin to IV heparin and then undergo the paracentesis and then be placed back on the warfarin. HOSPITAL COURSE: The patient was admitted and his warfarin was discontinued. He continued to see Dr. Pereyra and had dialysis on a routine basis. Initially, his warfarin was allowed to metabolize and his INR was monitored. However, after a couple of days, it had not significantly changed and he therefore received 2 units of FFP and when that failed to make substantial change, he received a second round of 2 units of FFP when his INR was adequately low. He did undergo successful ultrasound-guided paracentesis with removal of 6 L of fluid from the abdomen and the patient was then started back on the heparin and warfarin until he was therapeutic again with his INR. At that time, the patient was felt to be stable for discharge home. PHYSICAL EXAMINATION: VITAL SIGNS: On the day of discharge, temperature was 97.3, pulse 62, respirations 18, O2 saturation was 97% on room air, BP was 99/64. GENERAL: The patient was awake, alert, oriented, pleasant, cooperative. HEART: Had a 2/6 murmur. LUNGS: Slightly diminished, but otherwise clear. ABDOMEN: Loose and flaccid with modest recurrence of some ascitic fluid. EXTREMITIES: Had no edema at all. DISPOSITION: The patient is discharged to home in stable condition. ACTIVITY: As tolerated. DIET: He will continue with the renal diet. MEDICATIONS: He will continue his usual home medications. For details, please see his discharge medication list, but these include atorvastatin, allopurinol, isosorbide, warfarin, carvedilol, amiodarone, hydralazine, fenofibrate, and amlodipine. FOLLOWUP: He is to follow up with his PCP, Dr. Eric Bailey and also with Dr. Keven Pereyra. He can return to the hospital should he have any problems prior to his followup. Job ID: [id number]
== END 2019-04-13 18:14 | disposition home or self-care (01) | DRG 291 ==
LOC: ERS 08:29 → OBSVTOIN 09:34 → 2SW 09:34 → T4-B 17:55
PROVIDERS: ADMIT Internal Medicine; ATTEND Internal Medicine
PROC: 5A1D70Z Performance of Urinary Filtration, Intermittent, Less than 6 Hours Per Day (ICD-10-PCS; 2019-04-05)
PROC: 0W9G3ZZ Drainage of Peritoneal Cavity, Percutaneous Approach (ICD-10-PCS; principal; 2019-04-10)
DX: I13.2 Hypertensive heart and chronic kidney disease with heart failure and with stage 5 chronic kidney disease, or end stage renal disease (principal); N18.6 End stage renal disease; I50.23 Acute on chronic systolic (congestive) heart failure; E78.5 Hyperlipidemia, unspecified; D63.1 Anemia in chronic kidney disease; M19.90 Unspecified osteoarthritis, unspecified site; I48.2 Chronic atrial fibrillation; I25.5 Ischemic cardiomyopathy; I07.1 Rheumatic tricuspid insufficiency; I50.813 Acute on chronic right heart failure; R79.1 Abnormal coagulation profile; Z96.653 Presence of artificial knee joint, bilateral; Z96.643 Presence of artificial hip joint, bilateral; Z95.810 Presence of automatic (implantable) cardiac defibrillator; Z99.2 Dependence on renal dialysis; Z79.899 Other long term (current) drug therapy; Z79.01 Long term (current) use of anticoagulants; Z79.1 Long term (current) use of non-steroidal anti-inflammatories (NSAID)
CPT/HCPCS: 36415; 36416; 36430; 49083; 71046; 80048; 80053; 85014; 85018; 85025; 85049; 85610; 85730; 86850; 86900; 86901; 90935; 93005; 93010; C9113; G0257; J1644; P9059; Q5105

== ENCOUNTER 2019-05-22 11:14 | Inpatient (IN) | payer MEDICARE ==
[2019-05-22 13:18] LABS: #Lymphocytes 0.8 thou/uL (1.20-3.40); #Monocytes 0.6 thou/uL (0.11-0.59); #Neutrophils 3.3 thou/uL (1.40-6.50); %Basophils 0.4 % (0.0-1.0); %Monocytes 13.3 % (0.0-10.0); %Neutrophils 68.3 % (42.0-75.0); Hemoglobin 10.9 g/dL (14.0-18.0); Mean Corpuscular HGB CONC 33.4 g/dL (32.0-36.0); Mean Corpuscular Hemoglobin 35.7 pg (27.0-31.0); Platelet Count 176 thou/uL (130-400); RBC Distribution Width 14.8 % (11.5-14.5); Red Blood Cell (RBC) Count 3.05 mill/uL (4.70-6.10); White Blood Cell (WBC) Count 4.8 thou/uL (4.8-10.8)
[2019-05-22 13:25] LABS: PTT 43.6 SEC (22.9-36.1)
[2019-05-22 13:26] LABS: INR-International Normal Ratio 2.7; Prothrombin Time 28.2 SEC (12.0-14.7)
--- NOTE | 2019-05-22 13:28 | RAD ---
FRONTAL VIEW CHEST: COMPARISON: 04/05/2019. INDICATION: Dyspnea. FINDINGS: Cardiac silhouette remains enlarged and there is vascular congestion. Left-sided AICD remains in shona ce. A pleural-based density is seen at the inferior left chest. IMPRESSION: Findings favor decompensated congestive heart failure with associated left pleural effusion and pulmo nary edema. Continued followup is recommended. POS: C
[2019-05-22 13:42] LABS: ALT (SGPT) 12 U/L (8-55); AST (SGOT) 27 U/L (5-34); Albumin 2.8 g/dL (3.4-4.8); Alkaline Phosphatase 107 U/L (40-150); Anion Gap 11 mmol/L (10-20); BUN (Urea Nitrogen) 27 mg/dL (8.4-25.7); Bilirubin, Total 1.2 mg/dL (0.2-1.2); CK (CPK) 50 U/L (30-200); Calc. Creatinine Clearance 0 mL/min (70-130); Calcium 8.7 mg/dL (7.8-10.44); Carbon Dioxide 36 mmol/L (23-31); Chloride 92 mmol/L (98-107); Estimated GFR-MDRD 15; Globulin 3.8 g/dL (2.4-3.5); Glucose 84 mg/dL (83-110); Lipase 132 U/L (8-78); Potassium 3.3 mmol/L (3.5-5.1); Protein, Total 6.6 g/dL (5.8-8.1); Sodium 136 mmol/L (136-145)
[2019-05-22 14:01] LABS: CKMB 1.5 ng/mL (0-6.6)
[2019-05-22] MEDS ORDERED: Ondansetron ODT 4 MG TAB SL PRN (20:12)
[2019-05-22] MEDS ORDERED: Ondansetron PF 4 MG/2 ML Vial IVP PRN (20:12)
--- NOTE | 2019-05-23 03:02 | HP ---
DATE/TIME OF EVALUATION: 05/22/19 at 5:30 p.m. CHIEF COMPLAINT: Abdominal swelling. HISTORY OF PRESENT ILLNESS: Mr. Hancock is an 79-year-old pleasant male with past medical history significant for ischemic cardiomyopathy with last EF estimated at 25% to 30%, persistent atrial fibrillation with elevated CHADS-VASc score, end-stage renal disease, on hemodialysis, and history of ascites status post paracentesis approximately 6 weeks ago, who presents at the behest of his education instructor, Dr. Pereyra and his PCP, Dr. Bailey, for increased abdominal swelling and girth. The patient states that despite his scheduled dialysis, he has continued to have increased abdominal swelling. At the time of my interview, he complains of a chronic cough which is sometimes productive of white sputum, however, denies any shortness of breath or chest pain. He has had no nausea, vomiting, fever, or chills. He was recently admitted in April 2019, for anticipated paracentesis. At that time, Dr. Castaneda of was consulted along with Dr. Pereyra. Dr. Castaneda did recommend bridging with heparin drip while the patient was being taken off Coumadin and planned for his paracentesis. During that hospitalization, he did require FFP to finally get his INR below 2 to move forward with the procedure. He had just over 6 L of fluid drained at that time, and has been doing relatively well since that time, although does say that he began to feel abdominal swelling almost immediately after the procedure. The patient was seen recently by Dr. Castaneda, and the patient was told he was "out of rhythm," but Dr. Castaneda did recommend proceeding with paracentesis prior to any intervention for his arrhythmia. On arrival to the ED, lab work was notable for a BNP of over 16,000. His chest x-ray showed evidence of decompensated congestive heart failure with associated left pleural effusion. His INR was 2.7 on arrival. REVIEW OF SYSTEMS: A 12-point review of systems performed and is negative. PAST MEDICAL HISTORY: As mentioned in the HPI, end-stage renal disease, on hemodialysis since November of this year, the patient has ischemic cardiomyopathy with last EF estimated at 25% to 30%, recurrent ascites, hypertension, atrial fibrillation with CHADS-VASc score equal to 4, anemia of chronic disease. ALLERGIES: NO KNOWN DRUG ALLERGIES. MEDICATIONS: 1. Isosorbide mononitrate 30 mg once daily. 2. Warfarin 2.5 mg tablet daily on Tuesday and Tuesday, 2 tablets Tuesday, , Tuesday and Tuesday, 1 tablet Tuesday. 3. Allopurinol 50 mg daily. 4. Hydralazine 25 mg daily. 5. Atorvastatin 40 mg at bedtime. 6. Carvedilol 6.25 mg b.i.d. 7. Amlodipine 5 mg daily, the patient was previously on amiodarone 200 mg p.o. b.i.d., but this has been discontinued. PAST SURGICAL HISTORY: Bilateral total knee replacements, bilateral total hip replacements, left ankle prosthesis, AV fistula, bilateral cataract removal, biventricular ICD placement. FAMILY HISTORY: Noncontributory. 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 No alcohol or illicit drug use. PHYSICAL EXAMINATION: VITAL SIGNS: Blood pressure 111/55, pulse 68, respirations 16, O2 saturation is 98% on room air, temperature 97.6. GENERAL: The patient is a chronically ill-appearing gentleman, resting in bed in the ER, in no acute distress. HEENT: Head is atraumatic and normocephalic. Mucous membranes are moist. NECK: Supple. Trachea is midline. CV: S1 and S2. Regular rhythm. LUNGS: Regular respiratory rate and pattern, overall clear to auscultation bilaterally, I can appreciate no rales or rhonchi. ABDOMEN: Distended, positive bowel sounds and positive fluid wave. EXTREMITIES: +1 edema bilaterally. NEUROLOGIC: Cranial nerves 2 through 12 are grossly intact. The patient is nonfocal. LABORATORY DATA: White blood cell count 4.8, hemoglobin 10.9, hematocrit 32.7, platelet count is 176. INR is 2.7. Sodium 136, potassium 3.3, BUN is 27, creatinine 3.92, alkaline phosphatase 107, creatine kinase 50, troponin 0.083. BNP 16,000. Lipase is 132. ASSESSMENT: 1. Recurrent symptomatic ascites and volume overload in the setting of acute on chronic congestive heart failure exacerbation and severe ischemic cardiomyopathy. 2. Ischemic cardiomyopathy with EF 25% to 30%. per OSVALDO, March 2019. 3. Bi-V ICD in situ. 4. End-stage renal disease, on hemodialysis, followed by Dr. Pereyra. 5. Persistent atrial fibrillation with CHADS-VASc equals 4, severely dilated left atrium per recent OSVALDO, anticoagulated with Coumadin with current INR of 2.7. 6. Hypertension. PLAN: Appreciate very much nephrology consult. The patient will be admitted for planned paracentesis. His Coumadin will be held. His INR is currently 2.7. I have discussed the patient at length with Dr. Coffman. Dr. Pereyra has ordered 3 units of FFP, we will check INR in the morning. Ideally, we will need to bridge with heparin if the patient's INR falls below 2 until his paracentesis can be scheduled. The patient may benefit from a more permanent solution like placement of a PleurX catheter as this is his 2nd paracentesis within several weeks' time. This patient is high risk with multiple comorbidities. Further recommendations based on hospital course. Job ID: [id number] [email or web address]
[2019-05-23 06:12] LABS: #Eosinphils 0.1 thou/uL (0.0-0.7); #Lymphocytes 0.7 thou/uL (1.20-3.40); #Monocytes 0.4 thou/uL (0.11-0.59); #Neutrophils 3.3 thou/uL (1.40-6.50); %Basophils 0.7 % (0.0-1.0); %Eosinophils 1.6 % (0.0-10.0); %Lymphocytes 15.9 % (21.0-51.0); %Monocytes 9.3 % (0.0-10.0); %Neutrophils 72.5 % (42.0-75.0); Hemoglobin 9.8 g/dL (14.0-18.0); Mean Corpuscular HGB CONC 32.7 g/dL (32.0-36.0); Mean Corpuscular Hemoglobin 35.2 pg (27.0-31.0); Mean Platelet Volume 8.5 fL (7.4-10.4); Platelet Count 170 thou/uL (130-400); RBC Distribution Width 14.8 % (11.5-14.5); Red Blood Cell (RBC) Count 2.77 mill/uL (4.70-6.10); White Blood Cell (WBC) Count 4.5 thou/uL (4.8-10.8)
[2019-05-23 06:16] LABS: INR-International Normal Ratio 1.9; Prothrombin Time 22.1 SEC (12.0-14.7)
[2019-05-23 06:33] LABS: Anion Gap 13 mmol/L (10-20); BUN (Urea Nitrogen) 33 mg/dL (8.4-25.7); Calc. Creatinine Clearance 17 mL/min (70-130); Calcium 8.4 mg/dL (7.8-10.44); Carbon Dioxide 35 mmol/L (23-31); Chloride 92 mmol/L (98-107); Estimated GFR-MDRD 13; Glucose 74 mg/dL (83-110); Potassium 3.5 mmol/L (3.5-5.1); Sodium 136 mmol/L (136-145)
[2019-05-23] MEDS ORDERED: Prevnar 13-Val Conj/PF 0.5 ML SYRINGE IM ONE (09:00)
[2019-05-23] MEDS ORDERED: Fenofibrate 48 MG TAB PO SCH (09:00)
[2019-05-23] MEDS ORDERED: hydrALAZINE 25 MG TAB PO SCH (09:00)
[2019-05-23] MEDS: Amlodipine 5 MG TAB PO SCH (09:05)
[2019-05-23] MEDS: Allopurinol 100 MG TAB PO SCH (09:05)
[2019-05-23] MEDS: Carvedilol 6.25 MG TAB PO SCH ×2 (09:06→18:07)
--- NOTE | 2019-05-23 09:26 | PRG ---
DATE OF SERVICE: 05/23/2019 SERVICE: Renal Medicine. SUBJECTIVE: Mr. Hancock is an 79-year-old white male with ESRD, congestive heart failure, and admitted due to worsening ascites. It was decided for him to undergo another therapeutic paracentesis. However, INR is still elevated. He did receive 3 units of FFP and INR has improved to 1.9. He will currently receive another 2 units of FFP to at least achieve an INR of 1.5, so paracentesis can be proceeded. No new complaints today. I have also scheduled him for dialysis today. OBJECTIVE: VITAL SIGNS: Blood pressure 115/55, heart rate 64, respiratory rate 20, temperature 98.6, and pulse ox 93%. GENERAL: The patient is awake, alert, comfortable, not in distress. SKIN: Adequate turgor. HEENT: He has slightly pale conjunctivae. Anicteric sclerae. NECK: No neck mass. No carotid bruits. No JVD. CHEST: No deformities. LUNGS: Clear breath sounds. HEART: Normal sinus rhythm. Grade 2/6 systolic murmur. No gallops. No rubs. ABDOMEN: Globular, soft, and nontender. No masses. Positive for ascites. EXTREMITIES: No edema. MEDICATIONS: Medications of May 23, 2019, were reviewed. LABORATORY DATA: Laboratories of May 23, 2019: White count 4.5, hemoglobin 9.8. Sodium 136, potassium 3.5, chloride 92, carbon dioxide 35, BUN is 33, creatinine 4.52, glucose 74, and calcium 8.4. BNP is 6195. INR of May 22, 2019, 2.7. INR of May 23, 2019, 1.9. ASSESSMENT AND PLAN: 1. Ascites - for therapeutic paracentesis. Trying to achieve an INR of 1.5, so the paracenteses can be proceeded. Radiology consulted for paracentesis. 2 more units of FFP will be given. 2. End-stage renal disease, stable. We will continue current hemodialysis regimen of 4 hours each treatment. We will try to max out fluid removal only as tolerated by the patient. 3. Congestive heart failure, maxing out fluid removal with the patient. 4. Anemia. Start Epogen. Please note, his Coumadin is on hold. This is in anticipation of a planned paracentesis. We will recheck basic metabolic, CBC, and INR in a.m. Job ID: [id number]
[2019-05-23 12:50] LABS: INR-International Normal Ratio 1.8; Prothrombin Time 20.5 SEC (12.0-14.7)
[2019-05-23 12:51] LABS: PTT 39.2 SEC (22.9-36.1)
[2019-05-23] MEDS ORDERED: Amiodarone 200 MG TAB PO SCH (14:00)
--- NOTE | 2019-05-23 14:12 | PRG ---
DATE OF SERVICE: 05/23/2019 SUBJECTIVE: An 79-year-old male with end-stage renal disease, on hemodialysis; congestive heart failure; and atrial fibrillation, presented to the emergency room with symptomatic ascites. His INR on admission was 2.7. He received 3 units of FFP yesterday in preparation for paracentesis. He is currently undergoing hemodialysis. He denies any nausea or vomiting. He continues to have abdominal discomfort from ascites. No fever or chills reported. He denies any chest pain or palpitations. REVIEW OF SYSTEMS: As discussed above. No cough, shortness of breath, or wheezing reported. OBJECTIVE: VITAL SIGNS: Temperature 98, pulse 63, respirations 20, blood pressure 114/54, and O2 saturation is 98% on room air. GENERAL: An 79-year-old male, in no apparent distress at rest. LUNGS: Showed diminished air entry at bilateral bases with scattered rhonchi. No significant wheezing. Minimal accessory muscle use. HEART: S1, S2 present. Irregularly irregular. No rubs or gallops. ABDOMEN: Soft, distended with shifting dullness. No guarding or rigidity. EXTREMITIES: Trace edema in bilateral lower extremities. No calf tenderness. PSYCHIATRY: Normal affect. The patient is alert, awake, and oriented x3. Intake of 720 mL, output unavailable. CURRENT MEDICATIONS: Reviewed. The patient is on; 1. Allopurinol. 2. Amlodipine. 3. Lipitor. 4. Carvedilol. 5. Amiodarone is currently on hold. IMAGING STUDIES: Telemetry monitoring showed ventricular tachycardia earlier today. He also has atrial flutter/fibrillation. Chest x-ray by my review showed left pleural effusion with decompensated congestive heart failure. LABORATORY FINDINGS: BUN 33, creatinine 4.5. Troponin of 0.083. INR of 1.9 this morning. Hemoglobin 9.8 with platelets of 170. IMPRESSION: 1. Symptomatic ascites. The patient needs therapeutic paracentesis. Per Radiology recommendation, INR should be below 1.5 for the procedure. 2. End-stage renal disease, on hemodialysis. 3. Chronic systolic heart failure, ejection fraction of 25% to 30%. 4. Status post automatic implantable cardioverter-defibrillator. 5. Chronic atrial fibrillation. Anticoagulation is currently on hold in preparation for paracentesis. The patient understands the risk associated with holding anticoagulation. 6. Hypertension. 7. Nonsustained ventricular tachycardia. 8. Chronic anticoagulation. 9. Hypokalemia, corrected. 10. Hypoalbuminemia/mild protein-calorie malnutrition. 11. Chronic anemia, secondary to renal insufficiency. 12. Gout. PLAN: The patient is currently admitted to telemetry unit. He is currently receiving 2 more units of FFP. We will continue carvedilol 6.25 mg b.i.d. He states that he does not take Imdur, hydralazine, or Tricor anymore. His amiodarone is currently on hold on admission. Reason is unclear. Electrophysiology will be consulted for nonsustained ventricular tachycardia. We will recheck PT/INR this afternoon. If his INR is below 1.5, he can undergo paracentesis. He will be started on heparin drip 4 to 6 hours after the paracentesis. I discussed with radiologist. We will continue to monitor. Hemodialysis per Nephrology. Recheck labs in a.m. Plan was discussed with the patient. He stated understanding. We will add fluid restriction. Job ID: [id number]
[2019-05-23] MEDS ORDERED: Heparin 10,000 UNITS/ 10 ML VIAL SLOW IVP SCH (15:15)
[2019-05-23] MEDS ORDERED: Phytonadione 10 MG/ML AMP PO SCH (17:00)
[2019-05-23] MEDS: Heparin 25,000 units/D5W 500 ML IVPB SCH (18:08)
[2019-05-23 21:21] LABS: INR-International Normal Ratio 1.8
[2019-05-23 21:22] LABS: PTT 63.2 SEC (22.9-36.1)
[2019-05-23] MEDS: Atorvastatin Calcium 40 MG TAB PO SCH (21:45)
[2019-05-24 06:43] LABS: INR-International Normal Ratio 1.5; Prothrombin Time 18.3 SEC (12.0-14.7)
[2019-05-24 06:44] LABS: #Eosinphils 0.1 thou/uL (0.0-0.7); #Lymphocytes 0.8 thou/uL (1.20-3.40); #Monocytes 0.5 thou/uL (0.11-0.59); #Neutrophils 2.7 thou/uL (1.40-6.50); %Basophils 0.2 % (0.0-1.0); %Eosinophils 1.9 % (0.0-10.0); %Lymphocytes 19.6 % (21.0-51.0); %Monocytes 11.7 % (0.0-10.0); %Neutrophils 66.5 % (42.0-75.0); Hemoglobin 10.3 g/dL (14.0-18.0); Mean Corpuscular HGB CONC 32.3 g/dL (32.0-36.0); Mean Corpuscular Hemoglobin 34.9 pg (27.0-31.0); Mean Platelet Volume 8.6 fL (7.4-10.4); Platelet Count 161 thou/uL (130-400); RBC Distribution Width 14.9 % (11.5-14.5); Red Blood Cell (RBC) Count 2.95 mill/uL (4.70-6.10)
[2019-05-24 07:01] LABS: ALT (SGPT) 13 U/L (8-55); AST (SGOT) 27 U/L (5-34); Albumin 3.2 g/dL (3.4-4.8); Alkaline Phosphatase 110 U/L (40-150); Anion Gap 14 mmol/L (10-20); BUN (Urea Nitrogen) 19 mg/dL (8.4-25.7); Bilirubin, Total 1.3 mg/dL (0.2-1.2); Calc. Creatinine Clearance 23 mL/min (70-130); Calcium 9.1 mg/dL (7.8-10.44); Carbon Dioxide 31 mmol/L (23-31); Chloride 95 mmol/L (98-107); Estimated GFR-MDRD 17; Globulin 3.8 g/dL (2.4-3.5); Glucose 86 mg/dL (83-110); Magnesium 1.6 mg/dL (1.6-2.6); Potassium 3.6 mmol/L (3.5-5.1); Sodium 136 mmol/L (136-145)
[2019-05-24] MEDS ORDERED: Sodium Bicarbonate 2.5 MEQ/5 ML VIAL ONE (07:31)
[2019-05-24] MEDS: Carvedilol 6.25 MG TAB PO SCH ×2 (08:55→17:07)
[2019-05-24] MEDS: Allopurinol 100 MG TAB PO SCH (08:56)
[2019-05-24] MEDS: Amiodarone 200 MG TAB PO SCH (08:56)
[2019-05-24] MEDS: Amlodipine 5 MG TAB PO SCH (08:56)
--- NOTE | 2019-05-24 08:58 | PRG ---
DATE OF SERVICE: 05/23/2019 HISTORY OF PRESENT ILLNESS: I am seeing Mr. Hancock at our [facility] as a followup. His problems are; 1. Chronic systolic congestive heart failure with ischemic cardiomyopathy, LVEF 23% on echo on 11/22/2018, severe MR, moderate aortic stenosis, moderate to severe tricuspid regurgitation. 2. Status post Bi-V ICD implanted on February 25, 2015, [employer] Viva Quad device. 3. Persistent atrial fibrillation, on Coumadin showed heavy spontaneous echo contrast in the left atrium and left atrial appendage, and cardioversion was postponed hence, suboptimal INR levels. 4. Progressive renal failure, now on dialysis. 5. Likely hepatorenal syndrome with recurrent ascites, requiring taps causing current admission as well. 6. Chronic anticoagulation with Coumadin. 7. Hypertension. SUBJECTIVE: Mr. Hancock seems to be doing fair. He is still fairly dyspneic and has significant abdominal distension and difficultly walk around. He denies dizziness or loss of consciousness. No stroke-like symptoms. No neurological deficits. No PND or orthopnea. No bleeding symptoms noted. He was admitted emergently through the ER for plan for paracentesis. OBJECTIVE: VITAL SIGNS: Blood pressure is 115/54, heart rate 64, temperature 98 degrees Fahrenheit. GENERAL: Alert and oriented man, in no apparent distress. NECK: Supple. Jugular veins not distended. CHEST: Coarse without crackles. HEART: Sounds are regular to rate and rhythm. No murmur or gallop. ABDOMEN: Benign, bowel sounds positive. Extended abdomen with ascites. EXTREMITIES: 1 to 2+ lower extremity edema. Left precordial ICD insertion site is well healed. LABORATORY DATA: White blood cell count 4.7, hemoglobin 9.8, platelet count is 170. Sodium 136, potassium 3.5, BUN is 33, and creatinine is 4.52. Telemetry strips reveal atrial fibrillation, ventricular pacing. Short nonsustained wide-complex tachycardia run is noted. ASSESSMENT AND PLAN: 1. Mr. Hancock is a pleasant 79-year-old man with history of advanced possibly end-stage heart failure with worsening fluid retention symptoms, especially ascites. This is 2nd time to be admitted for abdominal girth increased related to ascites , requiring a tap. a. As per Radiology's recommendation, Coumadin is on hold to achieve therapeutic levels. He will be started on IV heparin in the interim as his INR is now below 2 at 1.8. He received multiple FFPs as per Dr. Parr, and vitamin K was also planned to drop his levels to less than 1.5. b. We again discussed with the patient as well as Dr. Parr about the risk of thrombosis, and I agree with bridging with IV heparin while the INR is less than 2. Resume Coumadin as soon as possible post paracentesis. 2. Chronic atrial fibrillation, become permanenet within a year. He has been on amiodarone for a while, but we would like to achieve adequate anticoagulation prior to performing that possibly for at least 3 weeks. 3. BiV-ICD, otherwise adequate function. 4. Chronic amiodarone use. For now, no evidence of significant liver side effects. Continue monitoring. 5. End-stage renal disease, on hemodialysis. 6. Nonsustained ventricular tachycardia. At this point, I would continue monitoring and beta-nika therapy as well as amiodarone as before. At this point, I would sign off. Please call if any further help I can provide. Job ID: [id number] [id number]
--- NOTE | 2019-05-24 09:34 | PRG ---
DATE OF SERVICE: 05/24/2019 SERVICE: Renal Medicine. SUBJECTIVE: Mr. Hancock is an 79-year-old white male with ESRD and was admitted for therapeutic paracentesis. His INR was corrected. He underwent a paracentesis today and removed 7 L. He feels better. No complaints of chest pain or shortness of breath. OBJECTIVE: VITAL SIGNS: Blood pressure 131/58, heart rate 68, respiratory rate 16, temperature 99.6, and pulse ox 96%. GENERAL: He is noted to be awake, alert, comfortable, not in distress. SKIN: Adequate turgor. HEENT: Pinkish conjunctivae. Anicteric sclerae. NECK: No neck mass. No carotid bruits. No JVD. CHEST: No deformities. LUNGS: Clear breath sounds. HEART: Normal sinus rhythm. No murmurs. No gallops. No rubs. ABDOMEN: Globular, soft, and nontender. No masses. EXTREMITIES: Trace edema. MEDICATIONS: Medications of May 24, 2019, reviewed. LABORATORY DATA: Laboratories of May 24, 2019: White count 4, hemoglobin 10.3. Sodium 136, potassium 3.6, chloride 95, carbon dioxide 31, BUN 19, creatinine 3.42, glucose 86, AST 27, and ALT 13. INR was 1.5. ASSESSMENT AND PLAN: 1. End-stage renal disease, stable. Continuing Tuesday, Tuesday, and Tuesday hemodialysis. Fluid removal only as tolerated. 2. Ascites - status post 7 L therapeutic paracentesis, doing well. 3. Atrial fibrillation/cardiomyopathy. Start Coumadin 10 mg tablet tonight. We will start IV heparin. 4. Recheck INR in a.m. Job ID: [id number]
[2019-05-24 12:37] LABS: INR-International Normal Ratio 1.4; Prothrombin Time 17.2 SEC (12.0-14.7)
--- NOTE | 2019-05-24 12:57 | ULT ---
Sonographic guided paracentesis HISTORY: Recurrent ascites. FINDINGS: After explaining the procedure and answering all questions, sonographic survey shows large amount of free fluid throughout the abdomen. Sterile technique, buffered local anesthesia, sonographic guidance, and a right lower quadrant approach were used to carefully advance a 19-gauge Y ueh needle and catheter into the free fluid. Catheter was left to drain a total volume of 7.0 L slightly cloudy green-tinged yellow liquid. Catheter was removed. Patient tolerated the procedure wel l. Moderate amount of free fluid remaining. Patient was dismissed in good condition. IMPRESSION: Technically successful sonographic guided paracentesis.
[2019-05-24] MEDS ORDERED: Warfarin Sodium 10 MG TAB PO SCH (17:00)
[2019-05-24] MEDS: Atorvastatin Calcium 40 MG TAB PO SCH (21:40)
--- NOTE | 2019-05-24 23:06 | PRG ---
DATE OF SERVICE: 05/24/2019 SUBJECTIVE: 79-year-old male with end-stage renal disease, on hemodialysis; congestive heart failure; atrial fibrillation, on Coumadin; presented to the emergency room with symptomatic ascites. He received FFP along with vitamin K for reversal of Coumadin. He underwent paracentesis today draining around 7 L of ascitic fluid. At this time, he denies any abdominal pain, nausea, vomiting, or diarrhea. No fever or chills reported. He denies any focal neurologic deficit. REVIEW OF SYSTEMS: As discussed above. PHYSICAL EXAMINATION: VITAL SIGNS: Temperature 98.7, pulse 65, respirations of 16, blood pressure 116/54, O2 saturation of 97% on room air. GENERAL: 79-year-old male, in no apparent distress. LUNGS: Clear to auscultation bilaterally. HEART: S1, S2 present. Regular rate and rhythm. ABDOMEN: Soft. Bowel sounds present. No guarding or rigidity. EXTREMITIES: No calf tenderness. LABORATORY FINDINGS: INR 1.4. WBC 4.0 with hemoglobin 10.3. BUN 19, creatinine 3.42. Telemetry monitoring by my review showed paced rhythm. IMPRESSION: 1. Symptomatic ascites, status post paracentesis. 2. Chronic atrial fibrillation. The patient is currently on heparin drip. Warfarin has been restarted today. 3. Chronic systolic heart failure, ejection fraction 25% to 30%. 4. End-stage renal disease, on hemodialysis. 5. History of AICD placement. 6. Hypertension. 7. Nonsustained ventricular tachycardia. 8. Hypokalemia, corrected. 9. Mild protein-calorie malnutrition. 10. Gout. 11. Chronic anemia secondary to renal insufficiency. PLAN: Warfarin has been initiated. We will continue heparin drip until his INR becomes therapeutic. Continue amiodarone along with amlodipine and carvedilol. Recheck PT/INR in a.m. Low vitamin K diet. Job ID: [id number]
[2019-05-25] MEDS: Heparin 25,000 units/D5W 500 ML IVPB SCH (01:38)
[2019-05-25 03:45] LABS: Hemoglobin 10.2 g/dL (14.0-18.0); Platelet Count 163 thou/uL (130-400)
[2019-05-25 03:50] LABS: INR-International Normal Ratio 1.4
[2019-05-25 03:51] LABS: PTT 97.3 SEC (22.9-36.1)
[2019-05-25 04:01] LABS: Anion Gap 13 mmol/L (10-20); BUN (Urea Nitrogen) 29 mg/dL (8.4-25.7); Calc. Creatinine Clearance 17 mL/min (70-130); Calcium 8.5 mg/dL (7.8-10.44); Carbon Dioxide 32 mmol/L (23-31); Chloride 94 mmol/L (98-107); Estimated GFR-MDRD 13; Glucose 103 mg/dL (83-110); Potassium 3.6 mmol/L (3.5-5.1); Sodium 135 mmol/L (136-145)
--- NOTE | 2019-05-25 09:44 | PRG ---
DATE OF SERVICE: 05/25/2019 SUBJECTIVE: Mr. Hancock is an 79-year-old white male with ESRD followed by the Renal Service on maintenance hemodialysis. He was admitted for therapeutic paracentesis. He underwent 7 L therapeutic paracentesis. Yesterday, he was feeling better. However, this morning his belly is again distended. We have consulted Surgery for placement of permanent abdominal catheter. He will also have another paracentesis. He is currently undergoing dialysis. We have discontinued the heparin drip in anticipation of the procedure. No other complaints. OBJECTIVE: VITAL SIGNS: Blood pressure 120/58, heart rate 72, respiratory rate 20, temperature 98.2, and pulse ox 94%. GENERAL: Awake, alert, comfortable. SKIN: Adequate turgor. HEENT: Pinkish conjunctivae. Anicteric sclerae. NECK: No neck mass. No carotid bruits. No JVD. CHEST: No deformities. LUNGS: Clear breath sounds. HEART: Normal sinus rhythm. No murmurs, gallops, or rubs. ABDOMEN: Globular, soft, nontender. No masses. Positive for ascites. EXTREMITIES: Trace edema. MEDICATIONS: Medications of May 25, 2019, reviewed. LABORATORY DATA: Laboratories of May 25, 2019; hemoglobin 10.2, sodium 135, potassium 3.6, chloride 94, carbon dioxide 32, BUN 29, creatinine 4.47, glucose 103, calcium 8.5. ASSESSMENT AND PLAN: 1. End-stage renal disease stable. We will continue current hemodialysis regimen. Fluid removal only as tolerated. 2. Ascites - for repeat paracentesis. Placement of an abdominal catheter to be done either a pigtail or another similar catheter where the patient can drain the fluid any time. 3. Overall agree with current management. Coumadin to be given tonight. Job ID: [id number]
[2019-05-25] MEDS: Carvedilol 6.25 MG TAB PO SCH ×2 (13:54→17:32)
[2019-05-25] MEDS: Amlodipine 5 MG TAB PO SCH (13:54)
[2019-05-25] MEDS: Allopurinol 100 MG TAB PO SCH (13:54)
[2019-05-25] MEDS: Amiodarone 200 MG TAB PO SCH (13:55)
[2019-05-25] MEDS ORDERED: Sodium Bicarbonate 2.5 MEQ/5 ML VIAL ONE (14:25)
[2019-05-25] MEDS ORDERED: Fentanyl 100 MCG/2 ML VIAL ONE (14:25)
[2019-05-25] MEDS ORDERED: Midazolam HCl 2 mg/2 ml Vial ONE (14:25)
--- NOTE | 2019-05-25 17:06 | CT ---
CT guided tunneled long-term paracentesis catheter placement. Conscious sedation: Approximately 50 minutes were spent with the patient for conscious sedation. HISTORY: Recurrent ascites FINDINGS: After explaining the procedure and answering all questions, limited CT imaging of the abdom en was performed. Moderate amount of free fluid is present. In consultation with the patient, a right lower quadrant approach and position were chosen. Sterile technique, buffered local anesthesia, CT guidance, and conscious sedation were used to carefu lly advance a 19-gauge catheter into the free fluid in the right lower quadrant. Sterile technique was used to tunnel a 15 Mongolian permanent tunneled drainage catheter approximately 5 cm through the subcutaneous tissues to the access site. Access site was carefully dilated to 15 Mongolian over a 0.035 guidewire. The drainage catheter was then carefully inserted through a 15 Mongolian sheath. Peel-away sheath was removed. The small incision site at the access was closed with 2-0 absorbable suture. Drainage catheter exit point was secured externally with buffered local anesthesia and 0 silk suture. Approximately 2 L of clear yellow liquid was carefully drained in sterile bottles. External portions of the drainage catheter were secured. Patient tolerated the procedure well and was returned in improved condition. IMPRESSION: Successful CT-guided placement of tunneled right lower quadrant paracentesis drain. Transcribed Date/Time: 05/25/2019 5:54 PM
[2019-05-25] MEDS: Warfarin Sodium 10 MG TAB PO SCH (17:32)
--- NOTE | 2019-05-25 20:18 | PDOC.PN ---
- Subjective Encounter Start Date: 05/25/19 Encounter Start Time: 09:00 Patient seen and examined for Symptomatic Ascites. s/p Paracentesis yesterday. c /o Abd fullness. No N/V. No other complaints. No overnight events - Objective MAR Reviewed: Yes Vital Signs & Weight: Vital Signs (12 hours) Temp Pulse Resp BP BP Pulse Ox 05/25/19 17:32 168/74 H 05/25/19 17:15 97.6 F 60 20 168/74 H 95 05/25/19 13:54 68 159/68 H 05/25/19 13:50 97.6 F 68 18 159/68 H 94 L Weight Admit Weight 198 lb Weight 182 lb 8.684 oz Most Recent Monitor Data Heart Rate from ECG 80 NIBP 109/62 Respiration from ECG 16 I&O: 05/24/19 05/25/19 05/26/19 06:59 06:59 06:59 Intake Total 480 1240 Output Total 0 Balance 480 1240 Result Diagrams: 05/26/19 05:42 05/26/19 05:41 EKG Reviewed by me: Yes (Tele Paced) Phys Exam - Physical Examination Constitutional: NAD Respiratory: no wheezing, no rhonchi Cardiovascular: RRR, no rub Gastrointestinal: soft, positive bowel sounds distended Neurological: moves all 4 limbs Dx/Plan - Plan IMPRESSION: 1. Symptomatic ascites, status post paracentesis 05/24 2. Chronic atrial fibrillation - on heparin drip. Warfarin on hold. 3. Chronic systolic heart failure, ejection fraction 25% to 30%. No on ACEI/ARB/ Aldactone due to ESRD 4. End-stage renal disease, on hemodialysis. 5. History of AICD placement. 6. Hypertension. 7. Nonsustained ventricular tachycardia. 8. Hypokalemia, corrected. 9. Mild protein-calorie malnutrition. 10. Gout. 11. Chronic anemia secondary to renal insufficiency. PLAN: Tunned catheter today for recurrent Ascites - Patient understands the risk associated with the procedure Continue heparin drip until his INR becomes therapeutic. Continue amiodarone Cont Amlodipine and carvedilol. Recheck PT/INR in a.m. Review of Systems - Review of Systems Respiratory: negative: Cough, Dry, Shortness of Breath, Hemoptysis, SOB with Excertion, Pleuritic Pain, Sputum, Wheezing Cardiovascular: negative: chest pain, palpitations, orthopnea, paroxysmal nocturnal dyspnea, edema, light headedness, other Gastrointestinal: Abdominal Pain (mild - gen). negative: Nausea, Vomiting, Diarrhea, Constipation, Melena, Hematochezia, Other - Medications/Allergies Allergies/Adverse Reactions: Allergies Allergy/AdvReac Type Severity Reaction Status Date / Time No Known Allergies Allergy Verified 03/12/19 09:05 Medications: Current Medications Allopurinol (Zyloprim) 50 mg PO DAILY [facility] Last Admin: 05/25/19 13:54 Dose: 50 mg Amiodarone HCl (Cordarone) 200 mg PO DAILY [facility] Last Admin: 05/25/19 13:55 Dose: 200 mg Amlodipine Besylate (Norvasc) 5 mg PO DAILY [facility] Last Admin: 05/25/19 13:54 Dose: 5 mg Atorvastatin Calcium (Lipitor) 40 mg PO QPM [facility] Last Admin: 05/24/19 21:40 Dose: 40 mg Carvedilol (Coreg) 6.25 mg PO BID-[facility] Last Admin: 05/25/19 17:32 Dose: 6.25 mg Heparin Sodium (Porcine) (Heparin 1,000 Units/Ml (10 Ml)) 0 units SLOW IVP ASDIR [facility]; Protocol Heparin Sodium/Dextrose (Heparin 25,000 Units/D5w 500 Ml) 500 mls @ 0 mls/hr IVPB INF [facility]; Protocol Last Admin: 05/25/19 01:38 Dose: 500 mls Sodium Chloride (Flush - Normal Saline) 10 ml IVF Q12HR [facility] Last Admin: 05/25/19 13:55 Dose: 10 ml Sodium Chloride (Flush - Normal Saline) 10 ml IVF PRN PRN PRN Reason: Saline Flush Warfarin Sodium (Coumadin) 10 mg PO 1700 [facility] Last Admin: 05/25/19 17:32 Dose: 10 mg
[2019-05-25] MEDS: Atorvastatin Calcium 40 MG TAB PO SCH (21:15)
[2019-05-25] MEDS ORDERED: HYDROcodone/Acetaminophen 5/325 mg Tablet PO SCH (22:30)
[2019-05-26 06:13] LABS: Hemoglobin 11.1 g/dL (14.0-18.0); Platelet Count 179 thou/uL (130-400)
[2019-05-26 06:32] LABS: Anion Gap 10 mmol/L (10-20); BUN (Urea Nitrogen) 20 mg/dL (8.4-25.7); Calc. Creatinine Clearance 17 mL/min (70-130); Calcium 8.9 mg/dL (7.8-10.44); Carbon Dioxide 34 mmol/L (23-31); Chloride 96 mmol/L (98-107); Estimated GFR-MDRD 16; Glucose 99 mg/dL (83-110); Potassium 3.9 mmol/L (3.5-5.1); Sodium 136 mmol/L (136-145)
[2019-05-26 06:35] LABS: INR-International Normal Ratio 1.4; Prothrombin Time 17.5 SEC (12.0-14.7)
[2019-05-26] MEDS: Amiodarone 200 MG TAB PO SCH (07:56)
[2019-05-26] MEDS: Amlodipine 5 MG TAB PO SCH (07:56)
[2019-05-26] MEDS: Allopurinol 100 MG TAB PO SCH (07:56)
[2019-05-26] MEDS: Carvedilol 6.25 MG TAB PO SCH ×2 (07:57→17:05)
--- NOTE | 2019-05-26 10:52 | PRG ---
DATE OF SERVICE: 05/26/2019 SERVICE: Renal Medicine. SUBJECTIVE: Mr. Hancock is an 79-year-old white male, followed up for his chronic renal failure. He was admitted for recurrent ascites. He underwent therapeutic paracenteses. He underwent an initial paracentesis of 7 L of fluid being removed. Subsequently, he underwent another 2 L of PD fluid removed. In the interim, it was decided to place a 15-Welsh permanent tunneled catheter, so the patient can drain the ascites at least once a week to once every two weeks. This morning, he voices no new complaints. No chest pain or shortness of breath. OBJECTIVE: VITAL SIGNS: Blood pressure is 149/64, heart rate 67, respiratory rate 16, temperature 98.4, pulse ox 96%. GENERAL: Noted to be awake, alert, comfortable, not in distress. SKIN: Adequate turgor. HEENT: He has pinkish conjunctivae. Anicteric sclerae. NECK: No neck mass. No carotid bruits. No JVD. CHEST: No deformities. LUNGS: Clear breath sounds. No wheezing. No crackles. HEART: Normal sinus rhythm. No murmur. No gallops. No rubs. ABDOMEN: Globular, soft, and nontender. No masses. Positive for drainage in intraabdominal catheter. EXTREMITIES: No edema. MEDICATIONS: Medications of May 26, 2019, were reviewed. LABORATORY DATA: Laboratories of May 26, 2019: Hemoglobin 11.1. Sodium 136, potassium 3.9, chloride 96, carbon dioxide 34, BUN 20, creatinine 3.73, calcium is 8.9. INR is 1.4. ASSESSMENT AND PLAN: 1. Chronic atrial fibrillation. We have resumed back the patient's Coumadin 10 mg tablet at bedtime. We will adjust as needed. INR is still not therapeutic. Continue heparin drip. 2. Recurrent ascites - status post paracenteses. Total of 9 L have been removed in the last 2 days. Intraabdominal catheter has now been placed, for which the patient can drain his ascites on a regular basis. 3. End-stage renal disease, stable. Received dialysis yesterday without any difficulty. Continue current Tuesday, Tuesday, and Tuesday hemodialysis regimen. Job ID: [id number]
--- NOTE | 2019-05-26 16:21 | EKG ---
Test Reason : Blood Pressure : / mmHG Vent. Rate : 064 BPM Atrial Rate : 028 BPM P-R Int : 000 ms QRS Dur : 198 ms QT Int : 574 ms P-R-T Axes : 000 -33 111 degrees QTc Int : 592 ms Ventricular-paced rhythm Abnormal ECG Confirmed by ELIZABETH RICHARDSON, TAMIKO ([id number]), editorial manager FABIOLA ROSARIO ([id number]) on 05/26/2019 4:20:51 PM Referred By: Confirmed By:TAMIKO JOHNSON MD
[2019-05-26] MEDS: Warfarin Sodium 10 MG TAB PO SCH (17:06)
--- NOTE | 2019-05-26 19:13 | PDOC.PN ---
- Subjective Encounter Start Date: 05/26/19 Encounter Start Time: 14:00 Patient seen and examined for Symptomatic Ascites. No new abd pain/N/V. On Heparin drip. No new complaints. No overnight events - Objective MAR Reviewed: Yes Vital Signs & Weight: Vital Signs (12 hours) Temp Pulse Resp BP BP BP Pulse Ox 05/26/19 17:05 157/69 H 05/26/19 16:45 97.9 F 66 18 157/69 H 98 05/26/19 12:45 62 18 128/58 L 98 05/26/19 08:00 96 05/26/19 07:57 149/64 H 05/26/19 07:56 67 149/64 H Weight Admit Weight 198 lb Weight 165 lb 6 oz Most Recent Monitor Data Heart Rate from ECG 80 NIBP 109/62 Respiration from ECG 16 I&O: 05/25/19 05/26/19 05/27/19 06:59 06:59 06:59 Intake Total 1240 Output Total 0 0 Balance 1240 0 Result Diagrams: 05/27/19 05:56 05/26/19 05:41 Phys Exam - Physical Examination Constitutional: NAD Respiratory: no wheezing, no rhonchi Cardiovascular: RRR, no rub Gastrointestinal: soft, non-tender, positive bowel sounds abd catheter + Musculoskeletal: no edema Neurological: moves all 4 limbs Dx/Plan - Plan IMPRESSION: 1. Symptomatic ascites, status post paracentesis 05/24 with abd catheter placement 05/25 2. Chronic atrial fibrillation - on heparin drip. 3. Chronic systolic heart failure, ejection fraction 25% to 30%. No on ACEI/ARB/ Aldactone due to ESRD 4. End-stage renal disease, on hemodialysis. 5. History of AICD placement. 6. Hypertension. 7. Nonsustained ventricular tachycardia. 8. Hypokalemia, corrected. 9. Mild protein-calorie malnutrition. 10. Gout. 11. Chronic anemia secondary to renal insufficiency. PLAN: Continue heparin drip until his INR becomes therapeutic. Continue amiodarone/Amlodipine and carvedilol. PT/INR in AM Cont other meds as below Review of Systems - Review of Systems Respiratory: negative: Cough, Dry, Shortness of Breath, Hemoptysis, SOB with Excertion, Pleuritic Pain, Sputum, Wheezing Cardiovascular: negative: chest pain, palpitations, orthopnea, paroxysmal nocturnal dyspnea, edema, light headedness, other - Medications/Allergies Allergies/Adverse Reactions: Allergies Allergy/AdvReac Type Severity Reaction Status Date / Time No Known Allergies Allergy Verified 03/12/19 09:05 Medications: Current Medications Allopurinol (Zyloprim) 50 mg PO DAILY [facility] Last Admin: 05/26/19 07:56 Dose: 50 mg Amiodarone HCl (Cordarone) 200 mg PO DAILY [facility] Last Admin: 05/26/19 07:56 Dose: 200 mg Amlodipine Besylate (Norvasc) 5 mg PO DAILY [facility] Last Admin: 05/26/19 07:56 Dose: 5 mg Atorvastatin Calcium (Lipitor) 40 mg PO QPM [facility] Last Admin: 05/25/19 21:15 Dose: 40 mg Carvedilol (Coreg) 6.25 mg PO BID-[facility] Last Admin: 05/26/19 17:05 Dose: 6.25 mg Heparin Sodium (Porcine) (Heparin 1,000 Units/Ml (10 Ml)) 0 units SLOW IVP ASDIR [facility]; Protocol Last Admin: 05/26/19 07:55 Dose: 2,259 unit Heparin Sodium/Dextrose (Heparin 25,000 Units/D5w 500 Ml) 500 mls @ 0 mls/hr IVPB INF [facility]; Protocol Last Admin: 05/25/19 01:38 Dose: 500 mls Sodium Chloride (Flush - Normal Saline) 10 ml IVF Q12HR [facility] Last Admin: 05/26/19 07:58 Dose: 10 ml Sodium Chloride (Flush - Normal Saline) 10 ml IVF PRN PRN PRN Reason: Saline Flush Warfarin Sodium (Coumadin) 10 mg PO 1700 [facility] Last Admin: 05/26/19 17:06 Dose: 10 mg
[2019-05-26] MEDS: Atorvastatin Calcium 40 MG TAB PO SCH (20:24)
[2019-05-26] MEDS: Heparin 25,000 units/D5W 500 ML IVPB SCH (20:26)
[2019-05-27 06:26] LABS: Hemoglobin 10.3 g/dL (14.0-18.0); Platelet Count 170 thou/uL (130-400)
[2019-05-27 06:34] LABS: INR-International Normal Ratio 2.2; Prothrombin Time 24.5 SEC (12.0-14.7)
[2019-05-27 06:36] LABS: PTT 93.1 SEC (22.9-36.1)
[2019-05-27] MEDS: Allopurinol 100 MG TAB PO SCH (08:41)
[2019-05-27] MEDS: Carvedilol 6.25 MG TAB PO SCH ×2 (08:41→16:38)
[2019-05-27] MEDS: Amlodipine 5 MG TAB PO SCH (08:42)
[2019-05-27] MEDS: Amiodarone 200 MG TAB PO SCH (08:42)
--- NOTE | 2019-05-27 09:54 | PRG ---
DATE OF SERVICE: 05/27/2019 SUBJECTIVE: Mr. Hancock is an 79-year-old white male with ESRD and underwent therapeutic paracentesis x2. He also had an abdominal tunneled catheter placed for further drainage of his ascites. He is now therapeutic. We will decrease his Coumadin to 5 mg tablet at bedtime. I will be instructing the nurse to train the patient's how to drain his abdominal catheter. The patient voices no other complaints. No chest pain or shortness of breath. OBJECTIVE: VITAL SIGNS: Blood pressure 146/70, heart rate 65, respiratory rate 18, temperature 97.7, and pulse ox 96%. GENERAL: Noted to be awake, alert, comfortable, not in distress. SKIN: Adequate turgor. HEENT: He has a pinkish conjunctivae. Anicteric sclerae. No neck mass. No carotid bruits. No JVD. CHEST: No deformities. LUNGS: Clear breath sounds. No wheezing. No crackles. HEART: Normal sinus rhythm. Grade 2/6 systolic murmur. No gallops. No rubs. ABDOMEN: Globular, soft, nontender. No masses. Positive for intraabdominal drainage catheter. EXTREMITIES: No edema. MEDICATIONS: Medications of May 27, 2019, were reviewed. LABORATORY DATA: Laboratories of May 27, 2019; hemoglobin 10.3. On May 26, 2019; sodium 136, potassium 3.9, chloride 96, carbon dioxide 34, BUN 20, creatinine 3.73, calcium 8.9. ASSESSMENT AND PLAN: 1. Chronic atrial fibrillation - on anticoagulation. Heparin has been discontinued. Coumadin at 5 mg tablet at bedtime. We will recheck INR tomorrow. 2. Recurrent ascites - I will be instructing the nursing staff to teach the how to do the abdominal catheter drainage. Arrangements with home health have also be done for this patient. 3. Congestive heart failure, clinically asymptomatic. Continue current management. 4. End-stage renal disease, stable. No indication for any emergent hemodialysis. Continue Tuesday, Tuesday, and Tuesday dialysis regimen. Job ID: [id number]
[2019-05-27 14:32] LABS: INR-International Normal Ratio 2.3; Prothrombin Time 25.4 SEC (12.0-14.7)
--- NOTE | 2019-05-27 14:49 | PDOC.PN ---
- Subjective Encounter Start Date: 05/27/19 Encounter Start Time: 09:30 Patient seen and examined for Ascites. No CP. No new complaints. No overnight events - Objective MAR Reviewed: Yes Vital Signs & Weight: Vital Signs (12 hours) Temp Pulse Pulse Pulse Resp BP BP 05/27/19 12:50 97.9 F 62 18 05/27/19 10:15 62 70 131/56 L 05/27/19 08:42 60 05/27/19 08:41 146/70 H 05/27/19 08:30 97.7 F 65 18 05/27/19 04:32 98.0 F 60 16 BP BP BP Pulse Ox 05/27/19 12:50 140/61 97 05/27/19 10:15 104/50 L 05/27/19 08:42 05/27/19 08:41 05/27/19 08:30 146/70 H 96 05/27/19 04:32 130/56 L 98 Weight Admit Weight 198 lb Weight 167 lb 4.8 oz Most Recent Monitor Data Heart Rate from ECG 80 NIBP 109/62 Respiration from ECG 16 I&O: 05/26/19 05/27/19 05/28/19 06:59 06:59 06:59 Intake Total 573 240 Output Total 0 Balance 0 573 240 Result Diagrams: 05/27/19 05:56 05/26/19 05:41 EKG Reviewed by me: Yes (Tele paced) Phys Exam - Physical Examination Constitutional: NAD Respiratory: no wheezing, no rhonchi Cardiovascular: RRR, no rub Gastrointestinal: soft, positive bowel sounds Musculoskeletal: no edema Neurological: non-focal, moves all 4 limbs Dx/Plan - Plan DVT proph w/SCDs IMPRESSION: 1. Symptomatic ascites, status post paracentesis 05/24 with abd catheter placement 05/25 2. Chronic atrial fibrillation - on heparin drip. 3. Chronic systolic heart failure, ejection fraction 25% to 30%. No on ACEI/ARB/ Aldactone due to ESRD 4. End-stage renal disease, on hemodialysis. 5. History of AICD placement. 6. Hypertension. 7. Nonsustained ventricular tachycardia. 8. Hypokalemia, corrected. 9. Mild protein-calorie malnutrition. 10. Gout. 11. Chronic anemia secondary to renal insufficiency. PLAN: Warfarin 5 mg daily Dialysis MWF Consult CM for outpt mngt of Abd catheter Continue amiodarone/Amlodipine/carvedilol. PT/INR in AM Cont other meds as below Review of Systems - Review of Systems Respiratory: negative: Cough, Dry, Shortness of Breath, Hemoptysis, SOB with Excertion, Pleuritic Pain, Sputum, Wheezing Cardiovascular: negative: chest pain, palpitations, orthopnea, paroxysmal nocturnal dyspnea, edema, light headedness, other - Medications/Allergies Allergies/Adverse Reactions: Allergies Allergy/AdvReac Type Severity Reaction Status Date / Time No Known Allergies Allergy Verified 03/12/19 09:05 Medications: Current Medications Allopurinol (Zyloprim) 50 mg PO DAILY [facility] Last Admin: 05/27/19 08:41 Dose: 50 mg Amiodarone HCl (Cordarone) 200 mg PO DAILY [facility] Last Admin: 05/27/19 08:42 Dose: 200 mg Amlodipine Besylate (Norvasc) 5 mg PO DAILY [facility] Last Admin: 05/27/19 08:42 Dose: 5 mg Atorvastatin Calcium (Lipitor) 40 mg PO QPM [facility] Last Admin: 05/26/19 20:24 Dose: 40 mg Carvedilol (Coreg) 6.25 mg PO BID-[facility] Last Admin: 05/27/19 08:41 Dose: 6.25 mg Miscellaneous Medication (Pharmacy To Dose) 1 each PO .WARFARIN [facility] Miscellaneous Medication (Pharmacy To Dose) 1 each PO .WARFARIN [facility] Sodium Chloride (Flush - Normal Saline) 10 ml IVF Q12HR [facility] Last Admin: 05/27/19 08:42 Dose: 10 ml Sodium Chloride (Flush - Normal Saline) 10 ml IVF PRN PRN PRN Reason: Saline Flush Warfarin Sodium (Coumadin) 5 mg PO 1700 [facility]
[2019-05-27] MEDS: Warfarin Sodium 5 MG TAB PO SCH (16:38)
[2019-05-27] MEDS ORDERED: Warfarin Sodium 10 MG TAB PO SCH (17:00)
[2019-05-27] MEDS: Atorvastatin Calcium 40 MG TAB PO SCH (21:35)
[2019-05-28 05:50] LABS: INR-International Normal Ratio 2.8; Prothrombin Time 29.4 SEC (12.0-14.7)
[2019-05-28] MEDS: Carvedilol 6.25 MG TAB PO SCH ×2 (09:00→18:27)
--- NOTE | 2019-05-28 09:27 | PRG ---
DATE OF SERVICE: 05/28/2019 SUBJECTIVE: Mr. Hancock is an 79-year-old white male with ESRD and followed by the Renal Service for his maintenance hemodialysis. He is currently undergoing dialysis. He is tolerating said treatment. We are using no heparin with this patient. He was admitted for therapeutic paracentesis. In the interim, he had CT scan-guided placement of a tunneled right lower quadrant paracentesis drain. The and the patient will be trained how to use this paracentesis drain today. He is now fully anticoagulated. From a renal point of view, this patient can be discharged anytime. No new complaints today. OBJECTIVE: VITAL SIGNS: Blood pressure is 129/58, heart rate 72, respiratory rate 18, temperature 96.6, and pulse ox 94% on room air. GENERAL: Awake, alert, comfortable, not in distress. SKIN: Adequate turgor. HEENT: Pinkish conjunctivae. Anicteric sclerae. NECK: No neck mass. No carotid bruits. No JVD. CHEST: No deformities. LUNGS: Clear breath sounds. HEART: Normal sinus rhythm. No murmur. No gallops. No rubs. ABDOMEN: Globular, soft, and nontender. No masses. Positive for tunneled abdominal drain. EXTREMITIES: No edema. No deformities. MEDICATIONS: Medications of May 28, 2019, reviewed. LABORATORY DATA: Laboratories of May 28, 2019, INR is 2.8. ASSESSMENT AND PLAN: 1. Atrial fibrillation. The patient is fully anticoagulated. Continue Coumadin 5 mg tablet nightly. 2. Ascites. P.r.n. drainage of the paracentesis, tunneled catheter. This will probably need draining every one to every two weeks. 3. End-stage renal disease, stable. We will continue heparin free hemodialysis. Fluid removal only as tolerated. Overall, agree with current management. Job ID: [id number]
[2019-05-28] MEDS: Allopurinol 100 MG TAB PO SCH (13:24)
[2019-05-28] MEDS: Amlodipine 5 MG TAB PO SCH (13:25)
[2019-05-28] MEDS: Amiodarone 200 MG TAB PO SCH (13:25)
[2019-05-28 14:14] VITALS: BMI 23.3
--- NOTE | 2019-05-28 14:42 | PQF ---
CLINICAL DOCUMENTATION IMPROVEMENT CLARIFICATION FORM: ICD-10 Updated PLEASE DO AN ADDENDUM TO THE PROGRESS NOTE WITH ANY DOCUMENTATION UPDATES OR ADDITIONS AND CARRY THROUGH TO DC SUMMARY. THANK YOU. DATE: 05/28/19 ATTN: DR. HARDY Please exercise your independent, professional judgment in responding to the clarification form. Clinical indicators are provided on the bottom of this form for your review Please check appropriate box(s): [ ] ASCITES D/T HEPATORENAL SYNDROME [ ] ASCITES NOT D/T HEPATORENAL SYNDROME [ x ] ASCITES DUE TO CHF/Hypoalbuminemia [ ] Unable to determine In addition, please specify: Present on Admission (POA): [x ] Yes [ ] No [ ] Unable to determine For continuity of documentation, please document condition throughout progress notes and discharge summary. Thank You. CLINICAL INDICATORS - SIGNS / SYMPTOMS / LABS DX: "ASCITES" RISK FACTORS: RECURRENT ASCITES ESRD TREATMENTS: PARACENTESIS PLACEMENT OF RLQ TUNNELED DRAINAGE CATHETER (This form is maintained as a part of the permanent medical record) 2014 [employer]. All Rights Reserved [email or web address] Office: [phone] [facility]
--- NOTE | 2019-05-28 15:54 | DIS ---
DATE OF ADMISSION: 05/22/2019 DATE OF DISCHARGE: 05/28/2019 DISCHARGE DISPOSITION: Home. FOLLOWUP: 1. Follow up with primary care physician, Dr. Eric Bailey in 1 week. 2. Follow up with Dr. Mckinnon as scheduled. 3. Follow up with Dr. Pereyra for maintenance hemodialysis. Outpatient Coumadin [facility] followup. 4. [facility] has been arranged. ALLERGIES: NO KNOWN DRUG ALLERGIES. THE PATIENT WAS SEEN AND EXAMINED ON THE DAY OF DISCHARGE. DENIES ANY NEW COMPLAINTS. NO CHEST PAIN, SHORTNESS OF BREATH, PALPITATIONS REPORTED. INPATIENT PROCEDURES: 1. On 24 May 2019, the patient underwent ultrasound-guided paracentesis, draining approximately 7 L of cloudy green tinged ascitic fluid. 2. On 25 May 2019, the patient underwent abdominal catheter placement with drainage of 2 L of ascitic fluid (CT-guided placement of the tunneled right lower quadrant paracentesis drain). INPATIENT FIELD COIL WINDER: Nephrology, Dr. Pereyra. BRIEF HOSPITAL COURSE: The patient is an 79-year-old male with recurrent ascites, end-stage renal disease, on hemodialysis, and congestive heart failure, ejection fraction 25% to 30%, presented to the emergency room with abdominal swelling. His workup was consistent with symptomatic ascites. Warfarin was reversed after 5 units of FFP along with vitamin K. He was placed on heparin drip. He underwent paracentesis on the . Next day, his abdomen became distended again. He underwent tunneled abdominal catheter CT guided by Radiology. Warfarin has been resumed. His INR on the day of discharge is 2.8. He was advised to take 2.5 mg daily until seen by Coumadin Clinic. He was advised to check PT/INR in next 2 days. Plan of care was discussed with the patient and the family at the bedside. They stated understanding. FINAL DIAGNOSES: 1. Symptomatic ascites secondary to congestive heart failure present on admission, status post paracentesis with placement of tunneled paracentesis drain. 2. Chronic atrial fibrillation, restarted back on warfarin. 3. Chronic systolic heart failure, ejection fraction 25% to 30%. No ACEI/ARB/ Aldactone due to CKD. 4. End-stage renal disease, on hemodialysis. 5. History of AICD placement. 6. Hypertension. 7. Nonsustained ventricular tachycardia. The patient was evaluated by electrophysiology this admission. Dr. Castaneda recommended to continue beta blockers. 8. Hypokalemia, replaced. 9. Mild protein-calorie malnutrition. 10. Gout. 11. Chronic anemia secondary to renal insufficiency. Plan of care was discussed with the patient in detail. He stated understanding. Job ID: [id number] MTDD
[2019-05-28 16:57] VITALS: BP 138/63; TEMP 97.9
[2019-05-28] MEDS: Warfarin Sodium 5 MG TAB PO SCH (18:28)
--- NOTE | 2019-05-30 05:56 | PQF ---
[employer] Stevedoring Supervisor Crystal Reports Winform Viewer FREDDIE KIM MALIK MD [id number] [facility] [id number] CLINICAL DOCUMENTATION CLARIFICATION FORM: POST DISCHARGE Addendum to original discharge summary date: ____ Late entry note date: __ DATE:05-30-19 ATTN:Dr. Keshav Salas Please exercise your independent, professional judgment in responding to the clarification form. Clinical indicators are provided on the bottom of this form for your review Can you please specify whether Acute on chronic systolic CHF is ruled in or ruled out during this encounter? Please check appropriate box(s) to clarify if the following diagnosis has been ruled in or ruled out: Acute on chronic systolic CHF [ ] Ruled in diagnosis [ ] Continue to treat [ ] Resolved [ x ] Ruled out diagnosis [ ] Cannot rule out diagnosis [ ] Other diagnosis please specify [ ] Unable to determine For continuity of documentation, please document condition throughout progress notes and discharge summary. Thank You. CLINICAL INDICATORS: H&P 05/[address] Burton despite his scheduled dialysis, he has continued to have increased abdominal swelling H&P 05/[address] Burton lab work was notable for a BNP of over 16,000, his chest x-ray showed evidence of decompensated congestive heart failure with associated let pleural effusion H&P 05/[address] Burton Recurrent symptomatic ascites and volume overload in the setting of acute on chronic congestive heart failure exacerbation and severe ischemic cardiomyopathy H&P 05/[address] Burton Ischemic cardiomyopathy with EF 25% to 30% per OSVALDO, March 2019 PN 05/[address] Parr Symptomatic ascites. The patient needs therapeutic paracentesis DS 05/[address] Parr Symptomatic ascites secondary to congestive heart failure present on admission DS 05/[address] Parr Chronic systolic heart failure, EF 25% to 30% Laboratory 05/22 BNP 15334.4, Troponin I 0.083 H&P 05/[address] Burton Physical Examination Extremities: +1 edema bilaterally RISK FACTORS: H&P- Ischemic cardiomyopathy H&P-Hypertension H&P-ESRD H&P- Persistent Afib H&P- Congestive Heart failure TREATMENTS: Paracentesis- 05/24 Dr Maryan Dickens Chest Xray- 05/22 Dr. Camargo Hemodialysis-05/23 Dr. Parr Hydralazine 25mg PO 05/23 MAR (This form is maintained as a part of the permanent medical record) 2014 [employer]. All Rights Reserved [email or web address] [not provided] MTDD
--- NOTE | 2019-05-31 17:50 | EKG ---
Test Reason : CK UNDERLY PM RHYTHM Blood Pressure : / mmHG Vent. Rate : 058 BPM Atrial Rate : 147 BPM P-R Int : 000 ms QRS Dur : 136 ms QT Int : 496 ms P-R-T Axes : 000 103 221 degrees QTc Int : 486 ms Atrial fibrillation with slow ventricular response Rightward axis Non-specific intra-ventricular conduction block T wave abnormality, consider inferior ischemia Abnormal ECG When compared with ECG of 22-MAY-2019 13:14, Atrial fibrillation has replaced Electronic ventricular pacemaker Confirmed by DR. Mauricio MORALES ([id number]) on 05/31/2019 5:50:28 PM Referred By: [facility] Confirmed By:DR. Mauricio MORALES
== END 2019-05-28 19:40 | disposition home or self-care (01) | DRG 947 ==
LOC: ERS 11:14 → ERHOLD 14:32 → OBSVTOIN 17:39 → 2NO 20:18
PROVIDERS: ADMIT Internal Medicine; ATTEND Internal Medicine
PROC: 5A1D70Z Performance of Urinary Filtration, Intermittent, Less than 6 Hours Per Day (ICD-10-PCS; 2019-05-23)
PROC: 0W9G3ZZ Drainage of Peritoneal Cavity, Percutaneous Approach (ICD-10-PCS; 2019-05-24)
PROC: 0W9G30Z Drainage of Peritoneal Cavity with Drainage Device, Percutaneous Approach (ICD-10-PCS; principal; 2019-05-25)
PROC: 3E0234Z Introduction of Serum, Toxoid and Vaccine into Muscle, Percutaneous Approach (ICD-10-PCS; 2019-05-25)
DX: R18.8 Other ascites (principal); N18.6 End stage renal disease; I48.1 Persistent atrial fibrillation; I13.2 Hypertensive heart and chronic kidney disease with heart failure and with stage 5 chronic kidney disease, or end stage renal disease; I47.2 Ventricular tachycardia; E44.1 Mild protein-calorie malnutrition; I50.22 Chronic systolic (congestive) heart failure; D63.1 Anemia in chronic kidney disease; Z23 Encounter for immunization; E87.6 Hypokalemia; M10.9 Gout, unspecified; Z96.643 Presence of artificial hip joint, bilateral; Z96.653 Presence of artificial knee joint, bilateral; Z99.2 Dependence on renal dialysis; Z79.01 Long term (current) use of anticoagulants; Z79.899 Other long term (current) drug therapy; Z95.810 Presence of automatic (implantable) cardiac defibrillator; Z68.23 Body mass index [BMI] 23.0-23.9, adult
CPT/HCPCS: 36415; 36430; 49060; 49083; 71045; 77002; 80048; 80053; 82550; 82553; 83690; 83735; 83880; 84484; 85014; 85018; 85025; 85049; 85610; 85730; 86850; 86900; 86901; 90935; 93005; 93010; 93798; C1729; G0257; J1644; J2250; J3010; J3430; P9059

== ENCOUNTER 2019-06-02 10:27 | Inpatient (IN) | payer MEDICARE ==
[2019-06-02 11:13] LABS: #Eosinphils 0.1 thou/uL (0.0-0.7); #Monocytes 0.5 thou/uL (0.11-0.59); #Neutrophils 3.3 thou/uL (1.40-6.50); %Basophils 0.5 % (0.0-1.0); %Eosinophils 1.5 % (0.0-10.0); %Lymphocytes 20.1 % (21.0-51.0); %Monocytes 10.5 % (0.0-10.0); %Neutrophils 67.3 % (42.0-75.0); Hemoglobin 10.7 g/dL (14.0-18.0); Mean Corpuscular HGB CONC 34.2 g/dL (32.0-36.0); Mean Corpuscular Hemoglobin 36.9 pg (27.0-31.0); Mean Platelet Volume 7.6 fL (7.4-10.4); Platelet Count 166 thou/uL (130-400); Red Blood Cell (RBC) Count 2.91 mill/uL (4.70-6.10); White Blood Cell (WBC) Count 4.8 thou/uL (4.8-10.8)
--- NOTE | 2019-06-02 11:13 | CT ---
CT OF THE CHEST, ABDOMEN AND PELVIS WITH IV CONTRAST INDICATION: Fall COMPARISON: None. FINDINGS: CHEST: Lungs:There is a small left apical and anterior pneumothorax. Right lung is clear. Heart and great vessels:There is prominent cardiomegaly and scattered vascular calcifications of the coronary arteries and thoracic aorta. Pleural space: There is a small left anterior and apical pneumothorax Additional findings: ABDOMEN: Liver:There is a percutaneous drain projecting over the right hepatic dome. No focal hepatic lesion i s evident. Spleen:Normal appearing. Pancreas:Normal appearing. Adrenal Glands:Normal appearing. Kidneys:Atrophic with bilateral renal cysts Aorta:There is severe vascular calcifications Additional findings: There is moderate to prominent ascites Pelvis: Bowel:Nondilated Bladder:Decompressed Reproductive structures:Normal appearing. Rectum and perirectal soft tissues:Normal appearing. Additional findings: No free fluid or free air. Osseous structures: There is diffuse osteopenia. There is a nondisplaced posterior left 12th, 11th and 10th rib fractures . There is an additional posterior lateral left 10th and ninth rib fractures. There is scattered degenerative and osteoarthritic change. There is a right total hip prosthesis in place. IMPRESSION: 1. Left ninth through 12th rib fractures with the left 10th rib fracture being segmental. 2. Small left pneumothorax 3. Moderate to severe ascites 4. Prominent cardiomegaly 5. Right upper quadrant quadrant abdominal drain 6. Findings called to Dr. Nelson at 11:00 AM on 06/02/2019.
[2019-06-02 11:21] LABS: INR-International Normal Ratio 2.9; PTT 43.7 SEC (22.9-36.1)
[2019-06-02 11:37] LABS: ALT (SGPT) 14 U/L (8-55); AST (SGOT) 26 U/L (5-34); Albumin 2.6 g/dL (3.4-4.8); Alkaline Phosphatase 103 U/L (40-150); Anion Gap 12 mmol/L (10-20); BUN (Urea Nitrogen) 24 mg/dL (8.4-25.7); Bilirubin, Total 1.1 mg/dL (0.2-1.2); Calc. Creatinine Clearance 0 mL/min (70-130); Calcium 8.1 mg/dL (7.8-10.44); Carbon Dioxide 33 mmol/L (23-31); Estimated GFR-MDRD 19; Globulin 3.3 g/dL (2.4-3.5); Glucose 107 mg/dL (83-110); Potassium 3.5 mmol/L (3.5-5.1); Protein, Total 5.9 g/dL (5.8-8.1)
[2019-06-02 11:39] LABS: Chloride 94 mmol/L (98-107); Sodium 135 mmol/L (136-145)
[2019-06-02] MEDS ORDERED: Morphine 4 MG/ML VIAL ONE (11:48)
[2019-06-02] MEDS ORDERED: Ondansetron PF 4 MG/2 ML Vial ONE (11:48)
[2019-06-02] MEDS ORDERED: ISOVUE-370 76%-LOCM 1 ML ONE (11:54)
[2019-06-02] MEDS ORDERED: Dextrose 50% Abboject 50 ML SYRINGE SLOW IVP PRN (13:49)
[2019-06-02] MEDS ORDERED: HumaLOG 300 UNITS/3 ML VIAL SC PRN (13:49)
[2019-06-02] MEDS ORDERED: hydrALAZINE 20 MG/ML VIAL SLOW IVP PRN (13:49)
[2019-06-02] MEDS ORDERED: Ondansetron PF 4 MG/2 ML Vial IVP PRN ×2 (13:49→13:53)
[2019-06-02] MEDS ORDERED: Promethazine HCl 25 MG/ML VIAL IM PRN (13:49)
[2019-06-02] MEDS ORDERED: Dextrose 5% in Water 1,000 ML IV PRN (13:49)
[2019-06-02] MEDS ORDERED: Morphine 4 MG/ML VIAL IV PRN (13:52)
[2019-06-02] MEDS ORDERED: Ondansetron ODT 4 MG TAB SL PRN (13:53)
[2019-06-02] MEDS ORDERED: Senokot 8.6 MG TAB PO SCH (14:00)
[2019-06-02] MEDS ORDERED: Rib Fracture Protocol PO SCH (14:00)
[2019-06-02] MEDS ORDERED: Cyclobenzaprine 10 MG TAB PO PRN (14:15)
[2019-06-02] MEDS ORDERED: traMADol HCl 50 MG TAB PO SCH ×2 (14:15→18:00)
[2019-06-02] MEDS: Gabapentin 100 MG CAP PO SCH ×2 (14:41→20:48)
[2019-06-02] MEDS ORDERED: Gabapentin 300 MG CAP PO SCH (15:00)
[2019-06-02 15:45] VITALS: BMI 25.1
[2019-06-02] MEDS: Rib Fracture Protocol PO SCH (15:53)
--- NOTE | 2019-06-02 16:39 | HP ---
HISTORY OF PRESENT ILLNESS: This is an 79-year-old gentleman, who comes in for evaluation of left chest pain after a fall at home. On a standing position, he tried to get his pill on the table and then when he sit down, he lost his balance and fell down. He reports no loss of consciousness or dizziness, which caused him to fall. After the fall, he felt pain from the left chest. He did not hit the head or report any other injury. Upon arrival in the ER, the patient's GCS is 15, in no acute respiratory distress. The patient is able to lay flat with O2 saturation 95% on room air. PAST MEDICAL HISTORY: The patient has past medical history of end-stage renal disease, on hemodialysis and 2 times paracentesis and have abdominal catheter once a week peritoneal dialysis; history of CHF; AFib; bilateral knee replacements. The patient had dialysis fistula on the right upper extremity, pacemaker and defibrillation on left side. SOCIAL HISTORY: Drinks socially. No drug use. No smoking history. REVIEW OF SYSTEMS: Noncontributory except for HPI. RADIOLOGY: Chest CT, pneumothorax, less than 10% relapse, left 9 through 12 rib fracture, small left pneumothorax, [id number] ASIS, cardiomegaly. PHYSICAL EXAMINATION: GENERAL: The patient is an elderly gentleman, who lay in flat with no sign of acute respiratory distress. The patient is alert, awake, oriented x3. VITAL SIGNS: Blood pressure 124/56, pulse 65, respiratory rate 16, O2 saturation 95% on room air. HEENT: Atraumatic, normocephalic. CHEST: Breath sounds clear. On the right side, breath sounds diminished. On the left side, chest rise is diminished. Chest wall is tender to touch. CARDIOVASCULAR: Regular rate and rhythm. Heart sounds normal. ABDOMEN: Soft, nondistended. No rebound. BACK: Normal range of motion. Normal enlargement. EXTREMITIES: Normal vascular intact. The patient moves all 4 extremities. DIAGNOSES: 1. Status post mechanical fall. 2. Left rib fracture from 9 through 12. 3. Small pneumothorax from the left, stable. 4. History of congestive heart failure with atrial fibrillation, pacemaker. 5. Chronic kidney disease, end stage, on hemodialysis and peritoneal dialysis. PLAN: The patient will be admitted to telemetry to be observed and follow up pneumothorax and intervene as needed. Continue gastritis, nonpharmaceutical DVT prophylaxis. Pulmonary toilet when pneumonia. Pain control. Patient's assessment and treatment plan was discussed with Dr Ghosh in detail, who was agreed with my evaluation. Job ID: [id number] MTDD
[2019-06-02] MEDS: Acetaminophen 500 MG TAB PO SCH (17:21)
[2019-06-02] MEDS ORDERED: Ibuprofen 800 MG TAB PO SCH (18:00)
[2019-06-02] MEDS ORDERED: Acetaminophen 650 MG Suppository PR SCH (18:00)
[2019-06-02] MEDS: Carvedilol 6.25 MG TAB PO SCH (20:46)
[2019-06-02] MEDS: Amiodarone 200 MG TAB PO SCH (20:47)
[2019-06-02] MEDS: Atorvastatin Calcium 40 MG TAB PO SCH (20:48)
[2019-06-02] MEDS ORDERED: Ibuprofen 600 MG TAB PO SCH (22:00)
--- NOTE | 2019-06-02 22:15 | CON ---
DATE OF CONSULTATION: PRIMARY CARE PHYSICIAN: Eric Bailey MD PRIMARY CHAINSTITCH BINDER: Froy Mckinnon MD TRAUMA DOCTOR: Juan Ghosh DO REASON FOR CARDIOLOGY CONSULT: History of congestive heart failure, atrial fibrillation, pacemaker. HISTORY OF PRESENT ILLNESS: Mr. Hancock is an 79-year-old male with a significant history of end-stage renal disease, on hemodialysis, ascites with paracentesis twice a week, chronic systolic congestive heart failure, chronic atrial fibrillation. The patient until this morning was noted to be doing very well. He denied any shortness of breath, dizziness, lightheadedness, chest pain or discomfort in his chest. This morning, after he finished putting the pill into his pill box and he got up, when he turned, he lost balance and he fell. According to his , since he had a large amount of fluid in the abdomen, when he turned, the large amount of fluid in the stomach caused the loss of balance and he fell. He complained of the pain at the ribs and the back pain. He denied chest pain, heaviness, tightness, fluttering, palpitation in his chest, or any other cardiac complaints. He was in the hospital a couple of weeks ago for possible cardiac atrial fibrillation ablation. However, the procedure was postponed due to large amount of fluid in his abdomen and the patient underwent paracentesis on May 24. The patient's echocardiogram was done in November 2018 with EF in the 10% to 15%, severe mitral valve regurgitation, moderate aortic stenosis, moderate to severe tricuspid regurgitation. The patient underwent cardiac catheterization in 2014 for the defibrillator. PAST MEDICAL HISTORY: 1. Chronic atrial fibrillation, on Coumadin. 2. Chronic systolic heart failure with AICD placement. 3. End-stage renal disease with dialysis. 4. Hypertension. 5. Symptomatic ascites. PAST SURGICAL HISTORY: AICD placement in 2014, bilateral knee replacement. There is fissure on the right upper extremities and the patient usually undergo paracentesis twice a week. The patient is supposed to have another paracentesis this coming Tuesday and dialysis on Tuesday. FAMILY HISTORY: The patient's mother and father due to old age and there are no significant family history of cardiac related disease in his family. SOCIAL HISTORY: He is . He denies tobacco, EtOH, or illicit drug abuse. ALLERGIES: NO KNOWN DRUG ALLERGIES, BUT THE PATIENT CANNOT TOLERATE TRAMADOL, PER THE PATIENT THAT CAUSES SEVERE CONSTIPATION. HOME MEDICATIONS: 1. Atorvastatin 40 mg once a day. 2. Allopurinol 50 mg once a day. 3. Carvedilol 6.25 mg twice a day. 4. Amiodarone 200 mg twice a day. 5. Amlodipine 5 mg once a day. 6. Coumadin 2.5 mg once a day. REVIEW OF SYSTEMS: A 12-point review of systems negative unless otherwise mentioned. PHYSICAL EXAMINATION: VITAL SIGNS: Blood pressure 123/64, temperature 97.5, pulse is 68, respiratory rate 18, O2 saturation 98% with 2 L nasal cannula. GENERAL: The patient is alert and oriented x4, not in acute distress. HEENT: Head normocephalic, atraumatic. Eyes, extraocular muscle movement intact. ENT and mouth, oral normal, nasal mucosa moist without lesion. NECK: Supple. Normal range of motion. No JVD. RESPIRATORY: Clear to auscultate bilaterally, but diminished at the bases. No wheezing, rales, or rhonchi noted. CARDIOVASCULAR: Irregularly irregular. There are no S3 or S4. No significant murmur or hives are noted. 2+ pulses in the bilateral upper and lower extremities. No edema in the lower extremities. Carotid pulses are present without bruit or thrill. ABDOMEN: Tympanic with palpitation. The patient denied tenderness. No mass to palpitate. Bowel sounds are present. SKIN: Warm and dry. No hematoma, lesion or erythema noted. The patient did refuse to show his back at this moment due to the severe pain. MUSCULOSKELETAL: The patient is able to move all extremities. The patient denied claudication in the lower extremities. NEUROLOGIC: The patient is alert and oriented x4. Nonfocal. PSYCHIATRIC: The patient's mood is appropriate. LABORATORY DATA: WBC 4.8, hemoglobin 10.7, hematocrit 31.4, platelet 166. INR 2.9. Sodium 135, potassium 3.5, BUN 24, creatinine 3.23, glucose 107, AST 26, ALT 14, albumin 2.6, globulin 3.3. The patient's chest, abdomen, pelvis CT scan shows left 9 through 12 rib fracture with left 10th rib fracture being segmental and a small left pneumothorax to appendix anterior left lower lobe. Moderate to severe ascites and prominent cardiomegaly and the right upper quadrant abdomen pain. ASSESSMENT AND PLAN: 1. Status post fracture and small pneumothorax in the left lobe. The patient's condition stable with 2 L nasal cannula. The patient complained of severe pain to the left ribs and back. However, the patient denied chest pain, discomfort in his chest, palpitation, or any other cardiac complaints. He denies any loss of consciousness or near syncopal episodes prior to this episode. We recommend to continue to monitor. However, we will continue to monitor his condition. 2. Chronic atrial fibrillation. The patient's heart rate is stable at this moment. The patient's Coumadin is on hold at this moment. due to hemothorax and status post fall. 3. Ischemic cardiomyopathy with EF of 25% to 30% and prior OSVALDO in March 2019. The patient's condition is stable at this moment. The patient has bi-V AICD placement, which is going to be interrogated today. 4. End-stage renal disease, on hemodialysis, which is managed by Dr. Pereyra. 5. Symptomatic ascites. The patient is supposed to have a paracentesis on Tuesday and the patient has chronic anemia due to renal function. Thank you very much for Cardiology Service to participate in the care of this patient. We will follow along the patient's care team and make further recommendations as appropriate. Job ID: [id number]
--- NOTE | 2019-06-02 22:47 | CON ---
DATE OF CONSULTATION: 06/02/2019 INDICATION FOR CONSULTATION: An 79-year-old gentleman, with end-stage cardiomyopathy with severe decrease in left ventricular systolic function, who has undergone AICD implant, who has end-stage renal disease who is on hemodialysis and has had significant problems with atrial fibrillation and volume overload and ascites. He has recently undergone a tunneled peritoneal catheter for drainage of the abdominal fluid. He was at home today and lost his balance and fell backwards and hit his left posterior chest area on the thorax and has apparently some fractured ribs. We were asked to see him due to his long history of severe cardiomyopathy. He has been followed by Dr. Castaneda who had placed an AICD. He has chronic heart failure which is systolic in nature, ejection fraction by echocardiogram in November of this year showed ejection fraction about 10% to 15%. He also has moderate aortic valve stenosis and [id number] tricuspid valve regurgitation with severe mitral valve regurgitation. He has a biventricular AICD as well as now has persistent atrial fibrillation. He was recently evaluated to see whether or not he could undergo electrical cardioversion for the atrial fibrillation, but there was significant amount of smoke formation noted in the left atrial appendage and it was opted to maximize his anticoagulation prior to proceeding in order to decrease the risk of having a stroke. Today, his INR is 2.9 with a hemoglobin of 10.7. He denied any chest pain, except for the soreness associated with the fall. He said he lost his balance and fell. There was no evidence of syncope. The had witnessed him falling and he just lost his balance. Otherwise, he seems to be doing relatively well as far as can be expected. He has undergone abdominal paracentesis recently and apparently his according to the has lost about 40 pounds due to repeated episodes of draining the fluid. When catheter was recently placed, approximately, according to the records, 2 L of fluid was removed. At this time, he is relatively stable and has no complaints. PAST MEDICAL HISTORY: Significant for the cardiomyopathy; systolic heart failure, status post AICD implant; end-stage renal disease; and hypertension. 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 ALLERGIES: NONE. MEDICATIONS: Prior to admission included; 1. Coreg 6.25 mg b.i.d. 2. Allopurinol. 3. Lipitor. 4. Isosorbide mononitrate as well as his oral anticoagulants. 5. He is taking Coumadin 2.5 mg a day. 6. Amiodarone 200 mg a day. 7. He is also on atorvastatin and Prilosec. FAMILY HISTORY: Noncontributory. SOCIAL HISTORY: He has occasional alcohol use. There is no history of tobacco abuse. REVIEW OF SYSTEMS: Essentially, a 12-point review of systems unremarkable, except what was noted in the history of present illness. He does have some pain after a fall. PHYSICAL EXAMINATION: GENERAL: Reveals an elderly gentleman, who is in no acute distress at this time, but has some discomfort after the fall. VITAL SIGNS: His blood pressure is 123/64, O2 saturation 99%, heart rate 70, respiratory rate is about 15 to 18, and he is afebrile. HEENT EXAMINATION: Shows the head to be normocephalic and atraumatic. NECK: Carotid pulses are present. CHEST: He does have an area of ecchymosis in the left posterior chest area. He has breath sounds that are somewhat decreased due to the pain with inspiration. CARDIOVASCULAR EXAM: Appears to be regular at this time, but other times, it appears to be somewhat irregular. There is no EKG in the chart to document whether or not he has atrial fibrillation at this time or not. I suspect he may be pacing from the device, but it actually will be unlikely he is pacing from the device since he has an AICD and the lower rate will be set most likely at 40 or 50. We can always interrogate the device to determine this, but he did have a recent interrogation and was found to have normal function of the AICD. Otherwise, his chest was clear to auscultation. ABDOMINAL: He does have obvious ascites, somewhat distended. He has a catheter in the right lower quadrant area for the drainage of the ascites. SKIN: Otherwise, unremarkable, was warm. He has no significant lower extremity edema. NEUROLOGIC: Essentially unremarkable. He has normal mentation. LABORATORY DATA: Shows a WBC of 4.8, hemoglobin was 10.7, and platelet count was 166,000. His INR is 2.9. Potassium is 3.5 with sodium of 135, creatinine is 3.23, and blood sugar was 107. IMPRESSION: 1. An elderly gentleman with end-stage cardiomyopathy, who has a biventricular AICD, who had a fall today. He will need to be observed due to his history of having Coumadin for his atrial fibrillation. He has had some ecchymosis already. We need to watch this to ensure that his hemoglobin does not fall further. Apparently, he also has a small pneumothorax. We will need to repeat the chest x-ray tomorrow morning to ensure that this is not increased and so he may need to undergo a small chest tube insertion or a Heimlich valve in order to release free-air, but hopefully this will resolve and will be reabsorbed. 2. History of AICD placement. I suspect this remains normal. I do not see indication that this is not functioning abnormally. We will obtain an EKG for further evaluation. 3. Oral anticoagulation due to his atrial fibrillation. We will continue with the Coumadin, but we will watch the INR to keep this from being too significantly elevated as he may have further bleeding. For his atrial fibrillation, we will continue the amiodarone. In the future, once he is anticoagulated adequately, he may be a candidate to undergo electrical cardioversion of the atrial fibrillation. 4. Chronic ascites which most likely is due to his end-stage cardiomyopathy. 5. End-stage renal disease, for which he is on hemodialysis. 6. Rib fracture, status post fall, which occurred today. He will need to have pain management due to the fractures. We will be more than happy to continue to follow this gentleman with you, but from a cardiac standpoint at this time, he actually is as stable as can be expected. Please note that on the chest x-ray and CT scan, the left 9 through the 12th rib fractures were present and also the left 10th rib shows segmental fractures. He has a small left pneumothorax. We will continue to follow the patient. Job ID: [id number]
[2019-06-03] MEDS: Acetaminophen 500 MG TAB PO SCH ×4 (00:02→18:04)
--- NOTE | 2019-06-03 01:10 | PRG ---
DATE OF SERVICE: 06/03/2019 SUBJECTIVE: The patient is currently on the surgical floor. He was admitted today, status post ground level fall, in which he hit his chest on a table and sustained multiple rib fractures. The patient is currently on the oral pathway of the rib fracture protocol. His pain is controlled. He is tolerating a diet and currently has no complaints. OBJECTIVE: VITAL SIGNS: Stable. The patient is noted to have systolic blood pressures in the low 100s to high 90s. He reports that this is what he normally has at home as he does follow his blood pressures at home. He is also supposed to see his Cardiology this week to adjust his blood pressure medicines accordingly. Otherwise, the patient is resting comfortably. He is getting approximately to 1000 on his incentive spirometry. This was discussed with him again in detail. ASSESSMENT AND PLAN: 1. Status post ground level fall. 2. Left 9th through 12th rib fractures. 3. Small left pneumothorax. 4. 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 5. End-stage renal disease, on dialysis. Plan will be to continue supportive care, rib fracture protocol, Physical and Occupational Therapy. Monitor his labs and repeat chest x-ray in the morning. Job ID: [id number]
[2019-06-03 07:01] LABS: #Eosinphils 0.1 thou/uL (0.0-0.7); #Lymphocytes 0.8 thou/uL (1.20-3.40); #Monocytes 0.7 thou/uL (0.11-0.59); #Neutrophils 4.2 thou/uL (1.40-6.50); %Basophils 0.4 % (0.0-1.0); %Eosinophils 1.7 % (0.0-10.0); %Lymphocytes 14.3 % (21.0-51.0); %Monocytes 11.8 % (0.0-10.0); %Neutrophils 71.8 % (42.0-75.0); Hemoglobin 10.6 g/dL (14.0-18.0); Mean Corpuscular HGB CONC 34.5 g/dL (32.0-36.0); Mean Corpuscular Hemoglobin 37.2 pg (27.0-31.0); Mean Platelet Volume 8.1 fL (7.4-10.4); Platelet Count 183 thou/uL (130-400); Red Blood Cell (RBC) Count 2.85 mill/uL (4.70-6.10); White Blood Cell (WBC) Count 5.8 thou/uL (4.8-10.8)
[2019-06-03 07:11] LABS: INR-International Normal Ratio 3.4; Prothrombin Time 33.7 SEC (12.0-14.7)
[2019-06-03 07:12] LABS: PTT 57.4 SEC (22.9-36.1)
[2019-06-03 07:22] LABS: ALT (SGPT) 14 U/L (8-55); AST (SGOT) 23 U/L (5-34); Albumin 2.6 g/dL (3.4-4.8); Alkaline Phosphatase 97 U/L (40-150); Anion Gap 13 mmol/L (10-20); BUN (Urea Nitrogen) 35 mg/dL (8.4-25.7); Calc. Creatinine Clearance 15 mL/min (70-130); Calcium 8.3 mg/dL (7.8-10.44); Carbon Dioxide 30 mmol/L (23-31); Chloride 94 mmol/L (98-107); Estimated GFR-MDRD 13; Globulin 3.3 g/dL (2.4-3.5); Glucose 72 mg/dL (83-110); Potassium 4.3 mmol/L (3.5-5.1); Protein, Total 5.9 g/dL (5.8-8.1); Sodium 133 mmol/L (136-145)
--- NOTE | 2019-06-03 08:15 | RAD ---
Chest AP view INDICATION: Subdural hematoma COMPARISON: CT the chest, abdomen and pelvis dated June 02, 2019 FINDINGS: Lungs:Small left apical pneumothorax is present. This appears smaller than on the comparison CT. Cardiac silhouette pulmonary vasculature:Cardiomegaly and pulmonary vascular congestion persists Pleural spaces:There is worsening pleural-parenchymal opacities involving left lung base. Upper abdomen:Surgical drain within the right upper quadrant of the abdomen is stable. Osseous structures: Left-sided rib fracture are poorly detailed. Additional findings:AICD is unchanged. IMPRESSION: 1. Worsening pleural-parenchymal opacity of left lung base suspicious for pleural effusion and left b asilar atelectasis or pneumonia. Continued follow-up is recommended. 2. Small left apical pneumothorax appears slightly less prominent than on the comparison CT evaluatio n. 3. Stable cardia megaly pulmonary vascular congestion
[2019-06-03] MEDS: Gabapentin 100 MG CAP PO SCH ×3 (09:00→20:16)
[2019-06-03] MEDS: Allopurinol 100 MG TAB PO SCH (09:00)
[2019-06-03] MEDS: Amiodarone 200 MG TAB PO SCH ×3 (09:01→20:36)
[2019-06-03] MEDS: Carvedilol 6.25 MG TAB PO SCH ×2 (09:01→20:17)
[2019-06-03] MEDS: Famotidine 20 MG TAB PO SCH (09:01)
[2019-06-03] MEDS: Polyethylene Glycol 3350 17 GM Packet PO SCH (09:01)
[2019-06-03] MEDS: Amlodipine 5 MG TAB PO SCH (09:01)
[2019-06-03] MEDS ORDERED: Ibuprofen 200 MG TAB PO SCH (10:45)
[2019-06-03] MEDS ORDERED: Epoetin (ESRD) 20,000 UNITS/ML SC SCH (11:45)
[2019-06-03] MEDS ORDERED: Albumin 25% 25 GM/100 ML BOT IVPB SCH (12:00)
[2019-06-03] MEDS ORDERED: EPOETIN ALFA-EPBX (ESRD) 4,000 UNIT/ML VIAL SC SCH (12:00)
--- NOTE | 2019-06-03 12:18 | PRG ---
DATE OF SERVICE: 06/03/2019 SUBJECTIVE: Mr. Hancock is an 79-year-old white male with ESRD, came in for chest pain after a fall. He was found to have rib fracture. We are now being consulted for his maintenance hemodialysis. The patient also has a history of chronic ascites secondary to his right heart failure. He has been drained on a p.r.n. basis. He has intraabdominal catheter placed for drainage. Please note, on the chest x-ray, he had 10% pneumothorax. No other complaints today. He is feeling better. He denies any shortness of breath. He does, however, complain of abdominal fullness. OBJECTIVE: VITAL SIGNS: Blood pressure is noted to be at 108/61 with a heart rate of 70, respiratory rate 18, temperature 97.9, pulse ox 100%. GENERAL: Awake, supine, comfortable, not in overt distress. SKIN: Adequate turgor. HEENT: He has a slightly pale conjunctivae. Anicteric sclerae. NECK: No neck mass. No carotid bruits. No JVD. CHEST: No deformities. LUNGS: Clear breath sounds. HEART: Normal sinus rhythm. No murmur. No gallops. No rubs. ABDOMEN: Globular, soft, nontender. Positive for intraperitoneal drain. Positive for ascites. EXTREMITIES: No edema. No deformities. MEDICATIONS: Medications of June 03, 2019, was reviewed. LABORATORY DATA: Laboratories of June 03, 2019; white count 5.8, hemoglobin 10.6. Sodium 133, potassium 4.3, chloride 94, carbon dioxide 30, BUN 35, creatinine 4.33, glucose 72, calcium 8.3, albumin 2.6. ASSESSMENT AND PLAN: 1. End-stage renal disease, stable. We will continue current hemodialysis regimen on Tuesday, Tuesday, and Tuesday. 2. Atrial fibrillation, previously was on Coumadin. It is currently on hold due to the recent trauma. We will recheck INR tomorrow. 3. Ascites. We will drain his ascites. We will attempt 2 L ascitic fluid removal. At the same time, we will give him a one time dose of albumin infusion. 4. Anemia, start weekly Epogen. Job ID: [id number]
[2019-06-03] MEDS: Ibuprofen 200 MG TAB PO SCH ×3 (13:05→20:17)
--- NOTE | 2019-06-03 15:37 | PRG ---
DATE OF SERVICE: 06/03/2019 SUBJECTIVE: This is an 79-year-old gentleman, who came in for evaluation of left chest pain after mechanical fall at home. The patient has a history of coronary artery disease, AFib, pacemaker, and ICD, history of end-stage chronic kidney disease, on dialysis Tuesday, Tuesday, and , and the patient has a peritoneal dialysis once a week. The patient has been managed conservatively in the surgical floor. Last night, he reported pain scale from 4 to 6. His vital signs stable. He is able to make urine. He is able to tolerate regular diet. OBJECTIVE: GENERAL: The patient is alert and awake, oriented x3. No obvious acute distress. VITAL SIGNS: Temperature 97, respiratory rate 18, heart rate 70, O2 sat 95 over 1 L nasal cannula, blood pressure 98/60. He makes from 1 to 10 mL urine a day. LUNGS: Breath sound from the right lung is clear, from the left side diminished and chest expansion is diminished from the left side due to pain. No obvious bruising or deformity. ABDOMEN: Soft, nondistended. Normal bowel sounds. EXTREMITIES: Neurovascularly intact x4. Muscle strength in 4 extremities is normal. NEUROLOGY: No focal neuro deficits. DIAGNOSTIC IMAGING: Chest x-ray showed small pleural fluid on the left. Lung expansion is limited. DIAGNOSES: 1. Status post mechanical fall. 2. Left rib fracture from 9 through 12, stable. 3. Small pneumothorax from the left side, stable. 4. History of coronary artery disease, atrial fibrillation, pacemaker and ICD. 5. End-stage chronic kidney disease, on hemodialysis and peritoneal dialysis. PLAN: In regard to the patient's pain from rib fracture, he is on rib fracture protocol PO, except using NSAID due to his chronic kidney disease. Dr. Ghosh talked with Dr. Pereyra this morning. Dr. Pereyra is okay for him to have 400 mg of ibuprofen q.6 hours p.o. Continue prophylaxis regimen; gastritis, DVT, and pulmonary toilet using spirometry. The patient is anticipating to have placement in acute rehab facility. Patient was seen and discussed with Dr Ghosh this morning during round Job ID: [id number] MTDD
[2019-06-03] MEDS: Rib Fracture Protocol PO SCH (15:52)
[2019-06-03] MEDS: Atorvastatin Calcium 40 MG TAB PO SCH (20:17)
--- NOTE | 2019-06-04 02:21 | PRG ---
DATE OF SERVICE: 06/04/2019 SUBJECTIVE: The patient remains on the surgical floor. He is status post ground level fall, in which he sustained multiple left-sided rib fractures and small left pneumothorax. The patient has multiple medical issues to include atrial fibrillation, on Coumadin, ascites, and end-stage renal disease, on dialysis. The patient is currently scheduled for dialysis tomorrow per Dr. Pereyra. His pain is currently controlled on p.o. pain medications. This was adjusted this morning by the Day Team and attempts to get him to breathe a little bit easier on his incentive spirometry. The patient is tolerating his diet. OBJECTIVE: VITAL SIGNS: The patient's systolic remains low 100s to 90s, heart rates in the 60s. His evening dose of metoprolol was held. The patient remains afebrile. GENERAL: The patient is currently sleeping. He appears in no distress. There were no issues reported by the nurses. ASSESSMENT AND PLAN: 1. Status post ground level fall. 2. Status post left ribs 9 through 12 fractures. 3. Left pneumothorax, stable. Plan will be to continue supportive care. Encourage incentive spirometry, pain control, pulmonary toilet, gastritis and mechanical VTE prophylaxis. The patient's INR today of note was 3.4. Job ID: [id number]
[2019-06-04] MEDS: Acetaminophen 500 MG TAB PO SCH ×5 (05:24→23:54)
[2019-06-04] MEDS: Ibuprofen 200 MG TAB PO SCH ×4 (05:25→21:00)
[2019-06-04 06:32] LABS: #Eosinphils 0.1 thou/uL (0.0-0.7); #Lymphocytes 0.9 thou/uL (1.20-3.40); #Monocytes 0.7 thou/uL (0.11-0.59); #Neutrophils 4.5 thou/uL (1.40-6.50); %Basophils 0.3 % (0.0-1.0); %Eosinophils 2.2 % (0.0-10.0); %Lymphocytes 13.8 % (21.0-51.0); %Neutrophils 72.7 % (42.0-75.0); Mean Corpuscular HGB CONC 33.5 g/dL (32.0-36.0); Mean Corpuscular Hemoglobin 36.8 pg (27.0-31.0); Mean Platelet Volume 7.7 fL (7.4-10.4); Platelet Count 173 thou/uL (130-400); Red Blood Cell (RBC) Count 2.71 mill/uL (4.70-6.10); White Blood Cell (WBC) Count 6.2 thou/uL (4.8-10.8)
[2019-06-04 06:39] LABS: Prothrombin Time 41.8 SEC (12.0-14.7)
[2019-06-04 06:41] LABS: INR-International Normal Ratio 4.4
[2019-06-04 06:50] LABS: Anion Gap 15 mmol/L (10-20); BUN (Urea Nitrogen) 50 mg/dL (8.4-25.7); Calc. Creatinine Clearance 12 mL/min (70-130); Calcium 8.2 mg/dL (7.8-10.44); Carbon Dioxide 29 mmol/L (23-31); Chloride 94 mmol/L (98-107); Estimated GFR-MDRD 10; Glucose 70 mg/dL (83-110); Potassium 4.8 mmol/L (3.5-5.1); Sodium 133 mmol/L (136-145)
[2019-06-04] MEDS: Amlodipine 5 MG TAB PO SCH (07:48)
[2019-06-04] MEDS: Carvedilol 6.25 MG TAB PO SCH (07:49)
[2019-06-04] MEDS ORDERED: Albumin 25% 25 GM/100 ML BOT IVPB SCH (08:36)
[2019-06-04] MEDS: Famotidine 20 MG TAB PO SCH (08:43)
[2019-06-04] MEDS: Gabapentin 100 MG CAP PO SCH ×3 (08:43→20:52)
[2019-06-04] MEDS: Allopurinol 100 MG TAB PO SCH (08:43)
[2019-06-04] MEDS: Senokot S 8.6-50 MG TAB PO SCH ×2 (08:43→20:51)
[2019-06-04] MEDS: Polyethylene Glycol 3350 17 GM Packet PO SCH (08:45)
[2019-06-04] MEDS: Carvedilol 3.125 MG TAB PO SCH ×2 (08:57→20:52)
--- NOTE | 2019-06-04 09:53 | PRG ---
DATE OF SERVICE: 06/04/2019 SERVICE: Renal Medicine. SUBJECTIVE: Mr. Hancock is an 79-year-old white male with known history of ESRD and followed up by the Renal Service for his maintenance hemodialysis. He was admitted due to a fall. He was found to have a rib fracture. He is being managed supportively. He also had a finding of small pneumothorax. No new complaints today. Please note, he underwent drainage of his ascites and 2 L was removed. The patient denies any chest pain or shortness of breath today. OBJECTIVE: VITAL SIGNS: Blood pressure 90/51, heart rate 67, respiratory rate 16, temperature 97.4, and pulse ox 93%. GENERAL: Noted to be awake, alert, comfortable, not in overt distress. SKIN: Adequate turgor. HEENT: Pinkish conjunctivae. Anicteric sclerae. NECK: No neck mass. No carotid bruits. No JVD. CHEST: No deformities. LUNGS: Clear breath sounds. HEART: Normal sinus rhythm. No murmur. No gallops. No rubs. ABDOMEN: Globular, soft, and nontender. Positive for abdominal drain. EXTREMITIES: Trace edema. MEDICATIONS: Medications of June 04, 2019, was reviewed. LABORATORY DATA: Laboratories of June 04, 2019; white count 6.2, hemoglobin 10. Sodium 133, potassium 4.8, chloride 94, carbon dioxide 29, BUN 50, creatinine 5.55, glucose 70, and calcium 8.2. INR is noted to be at 4.4. ASSESSMENT AND PLAN: 1. Elevated INR - we will continue to hold off Coumadin with this patient. Continue supportive care. 2. End-stage renal disease, scheduled for hemodialysis - Tuesday, Tuesday, and Tuesday dialysis regimen to be followed. Fluid removal only as tolerated. 3. Anemia, on weekly Epogen. 4. Hypertension - amlodipine has been discontinued and Coreg has been decreased. Recheck basic metabolic panel, CBC, and INR in a.m. Job ID: [id number]
--- NOTE | 2019-06-04 10:10 | PRG ---
DATE OF SERVICE: 06/04/2019 SUBJECTIVE: Mr. Hancock is seen today. He has no shortness of breath. He did have a paracentesis performed recently. He states his urination is minimal. OBJECTIVE: VITAL SIGNS: Blood pressure 90/51, pulse 87, and temperature 97.4. LUNGS: Clear to auscultation with decreased breath sounds noted on the left versus right. ABDOMEN: Protuberant. Positive ascites. HEART: Regular rate and rhythm. EXTREMITIES: 1+ pitting edema. PERTINENT LABORATORY DATA: Hemoglobin 10.0. Creatinine 5.5. CURRENT CARDIAC MEDICATIONS: 1. Amiodarone 200 daily. 2. Amlodipine 5 mg daily. 3. Atorvastatin 40 daily. 4. Carvedilol 3.125 b.i.d. IMPRESSION: 1. Recent fall with rib fracture. 2. Chronic systolic heart failure. 3. Ascites. 4. End-stage renal disease. RECOMMENDATIONS: Certainly difficult case. At this point, we will stop carvedilol to increase his pressure. He has received paracentesis. He will need to dialyze to extract fluid in hopes to improve his symptoms. Otherwise, at this point, options appear limited. We will discuss case with Dr. Keven Pereyra. Job ID: [id number]
[2019-06-04] MEDS: Amiodarone 200 MG TAB PO SCH (11:13)
--- NOTE | 2019-06-04 12:41 | PRG ---
DATE OF SERVICE: 06/04/2019 SUBJECTIVE: This is an 79-year-old gentleman who comes in for evaluation of left chest pain after a mechanical fall at home. The patient has a history of coronary artery disease, AFib, pacemaker, and ICD, history of end-stage chronic kidney disease, on dialysis on Tuesday, Tuesday, and , and the patient has a peritoneal dialysis once a week. Last night, he was doing better in regard to pain control. He is able to cough with limited pain. He is able to have 1000 on SP. The patient developed no fever or shortness of breath. Vital signs stable. The patient is able to tolerate regular diet. He will go to dialysis today. OBJECTIVE: GENERAL: The patient is alert, awake, and oriented x3, in no acute distress. VITAL SIGNS: Temperature 97.4, heart rate 66, respiratory rate is 18, O2 saturations 94 on room air, and blood pressure 118/61. LUNGS: Breath sounds bilaterally are clear. CARDIAC: Irregular rate and irregular rhythm. ABDOMEN: Soft and nondistended. Bowel sounds normal. EXTREMITIES: Neurovascularly intact x4. Muscle strength for extremities is normal. NEUROLOGIC: No focal neurologic deficits. ASSESSMENT: 1. Status post mechanical fall at home. 2. Left rib fracture from 9 through 12, stable. 3. Small pneumothorax from left side, stable. 4. Small hemothorax, left, stable. 5. History of coronary artery disease, atrial fibrillation, pacemaker, and implantable cardiac defibrillator. 6. End-stage chronic kidney disease, on hemodialysis and peritoneal dialysis. PLAN: Dialysis today with albumin transfusion per Dr. Pereyra. Continue rib fracture protocol with chronic kidney disease adjustment doses. If the patient is stable, he will be able to go home tomorrow. Job ID: [id number]
[2019-06-04] MEDS: Rib Fracture Protocol PO SCH (16:02)
[2019-06-04] MEDS: Atorvastatin Calcium 40 MG TAB PO SCH (20:52)
--- NOTE | 2019-06-05 01:01 | PRG ---
DATE OF SERVICE: 06/05/2019 SUBJECTIVE: The patient remains on the surgical floor. He is status post ground level fall and he sustained a multiple left-sided rib fractures and a small left pneumothorax. The patient also has end-stage renal disease necessitating dialysis and ascites necessitating peritoneal drainage. The patient was having some episodes of hypotension that appeared to be medication related. Cardiology evaluated him once again today and adjusted his medications and held his carvedilol. Otherwise, the patient's pain is controlled. He is tolerating p.o. He is working with therapy. PHYSICAL EXAMINATION: VITAL SIGNS: Stable. The patient is afebrile. GENERAL: The patient is resting comfortably. Has no complaints. ASSESSMENT: 1. Status post ground level fall. 2. Status post left rib fractures, 9 through 12. 3. Left pneumothorax, stable. PLAN: Plan will be to continue supportive care. The patient underwent dialysis today. We will continue with regular regimen per Nephrology. Medication adjustments with his blood pressure medications by Cardiology. We will discuss placement. Job ID: [id number]
[2019-06-05] MEDS: Ibuprofen 200 MG TAB PO SCH ×3 (05:59→22:38)
[2019-06-05] MEDS: Acetaminophen 500 MG TAB PO SCH ×3 (06:00→19:21)
[2019-06-05 06:48] LABS: #Eosinphils 0.1 thou/uL (0.0-0.7); #Lymphocytes 0.7 thou/uL (1.20-3.40); #Monocytes 0.7 thou/uL (0.11-0.59); #Neutrophils 4.4 thou/uL (1.40-6.50); %Basophils 0.2 % (0.0-1.0); %Eosinophils 2.4 % (0.0-10.0); %Lymphocytes 10.9 % (21.0-51.0); %Monocytes 11.7 % (0.0-10.0); %Neutrophils 74.7 % (42.0-75.0); Hemoglobin 9.4 g/dL (14.0-18.0); Mean Corpuscular HGB CONC 33.1 g/dL (32.0-36.0); Mean Corpuscular Hemoglobin 36.3 pg (27.0-31.0); Platelet Count 177 thou/uL (130-400); Red Blood Cell (RBC) Count 2.59 mill/uL (4.70-6.10); White Blood Cell (WBC) Count 5.9 thou/uL (4.8-10.8)
[2019-06-05 06:51] LABS: INR-International Normal Ratio 3.6; Prothrombin Time 35.7 SEC (12.0-14.7)
[2019-06-05 07:05] LABS: Anion Gap 12 mmol/L (10-20); BUN (Urea Nitrogen) 27 mg/dL (8.4-25.7); Calc. Creatinine Clearance 19 mL/min (70-130); Calcium 8.1 mg/dL (7.8-10.44); Carbon Dioxide 29 mmol/L (23-31); Chloride 98 mmol/L (98-107); Estimated GFR-MDRD 17; Glucose 78 mg/dL (83-110); Potassium 4.3 mmol/L (3.5-5.1); Sodium 135 mmol/L (136-145)
--- NOTE | 2019-06-05 08:19 | RAD ---
SINGLE VIEW CHEST: HISTORY: Rib fractures and pneumothorax. COMPARISON: 06/03/2019 FINDINGS: A single view of the chest shows an enlarged but stable cardiomediastinal silhouette. The pacemaker is unchanged in position. There may be a small left apical pneumothorax. No pleural effusion is see n. IMPRESSION: 1. Cardiomegaly. 2. Small left apical pneumothorax. POS: CET
[2019-06-05] MEDS: Allopurinol 100 MG TAB PO SCH (10:00)
[2019-06-05] MEDS: Senokot S 8.6-50 MG TAB PO SCH ×2 (10:01→22:00)
[2019-06-05] MEDS: Gabapentin 100 MG CAP PO SCH ×3 (10:01→22:00)
[2019-06-05] MEDS: Famotidine 20 MG TAB PO SCH (10:02)
[2019-06-05] MEDS: Polyethylene Glycol 3350 17 GM Packet PO SCH (10:03)
[2019-06-05] MEDS: Amiodarone 200 MG TAB PO SCH (10:03)
[2019-06-05] MEDS: Carvedilol 3.125 MG TAB PO SCH (10:04)
--- NOTE | 2019-06-05 10:37 | PRG ---
DATE OF SERVICE: 06/05/2019 SUBJECTIVE: Mr. Hancock is an 79-year-old white male with ESRD and followed by the Renal Service for his maintenance hemodialysis. He was initially admitted secondary to a fall with resultant rib fracture as well as small pneumothorax, where he underwent dialysis yesterday without any difficulty. A repeat chest x-ray showed the left apical small pneumothorax. No other complaints today. OBJECTIVE: VITAL SIGNS: Blood pressure is 90/48, heart rate 68, respiratory rate 20, temperature 97.4, and pulse ox 100%. GENERAL: Awake, alert, comfortable, not in distress. SKIN: Adequate turgor. HEENT: He has a slightly pale conjunctivae. Anicteric sclerae. NECK: No neck mass. No carotid bruits. No JVD. CHEST: No deformities. LUNGS: Decreased breath sounds. HEART: Normal sinus rhythm. No murmur. No gallops. No rubs. ABDOMEN: Globular, soft, and nontender. No masses. In the abdomen, he does have an intraperitoneal catheter. EXTREMITIES: No edema. No deformities. MEDICATIONS: Medications of June 05, 2019, reviewed. LABORATORY DATA: Laboratories of June 05, 2019, white count 5.9 and hemoglobin 9.4. Sodium 135, potassium 4.3, chloride 98, carbon dioxide 29, BUN 27, creatinine 3.47, and calcium is 8.1. ASSESSMENT AND PLAN: 1. End-stage renal disease, stable, tolerating current hemodialysis regimen. Fluid removal only as tolerated. 2. Chronic ascites, stable. Recently drained the ascites - 2 L and tolerated said treatment. 3. Status post fall/rib fracture and small pneumothorax - supportive care. We are awaiting possible rehab placement with this patient. 4. Anemia. Continuing weekly Epogen. 5. Recheck basic metabolic, CBC, and INR in a.m. Job ID: [id number]
--- NOTE | 2019-06-05 13:49 | PRG ---
DATE OF SERVICE: 06/05/2019 SUBJECTIVE: The patient remains on the surgical floor. He is status post ground level fall, in which he sustained multiple rib fractures, specifically left rib fractures 9 through 12. The patient is doing well. He is progressing with physical therapy, albeit slowly. The patient did undergo dialysis yesterday, which he tolerated well. Due to his hypotension, Cardiology has adjusted his medications. Otherwise, the patient is tolerating a diet, and his pain is controlled. OBJECTIVE: VITAL SIGNS: Temperature is 97.4, heart rate 68, blood pressure 90/48, respirations 20, and oxygen saturations 100% on room air. GENERAL: The patient is resting comfortably in bed. He is awake, alert, and oriented x3. [place] Coma Scale is 15. HEENT: Unremarkable. LUNGS: Clear to auscultation with moderate inspiratory and expiratory effort, appears to be somewhat mediated by pain, though the patient states that he is just not able to take as deeper breath as we would like. He is getting approximately 1000 on his incentive spirometry. HEART: Regular rate and rhythm. ABDOMEN: Soft, flat, nontender with active bowel sounds. Extremities: Neurovascularly intact x4. LABORATORY FINDINGS: White blood cell count 5.9, hemoglobin 9.4, hematocrit 28.4, and platelets 177. Sodium 135, potassium 4.3, chloride 98, CO2 of 29, BUN 27, creatinine 3.47, and glucose 78. RADIOGRAPHS: AP chest radiograph shows cardiomegaly and a small left apical pneumothorax. ASSESSMENT AND PLAN: 1. Status post mechanical fall. 2. Fractures of left ribs 9 through 12. 3. Residual small left apical pneumothorax, stable. 4. Hypotension, related to congestive heart failure and medications. 5. End-stage renal disease, on dialysis. PLAN: Plan will be to continue supportive care, physical and occupational therapy. Dialysis per Nephrology. Continue to observe blood pressure in light of medication changes. We will add Nepro supplement to the patient's diet as he is deconditioned from this hospital stay. The evaluation and examination were done with Dr. Ghosh this morning during rounds. For placement, we are hoping that we are able to get the patient to inpatient rehab. Job ID: [id number]
--- NOTE | 2019-06-05 14:01 | PRG ---
DATE OF SERVICE: 06/05/2019 SUBJECTIVE: Mr. Hancock appears weak. He states his shortness of breath is stable. No other complaints. OBJECTIVE: VITAL SIGNS: Blood pressure 106/64, pulse 69, and temperature 97.4. LUNGS: Minimal crackles bilaterally. HEART: Regular rate and rhythm. ABDOMEN: Protuberant. EXTREMITIES: 2+ pitting edema. PERTINENT LABORATORY DATA: Hemoglobin 9.4. Creatinine 3.47, albumin 2.6, and sodium 135. IMPRESSION: 1. Nonischemic cardiomyopathy. 2. End-stage renal disease. 3. Ascites. RECOMMENDATIONS: The patient continues to have fluid overload. This is likely multifactorial. At this point, I recommended stopping carvedilol and see if his blood pressure increases. This may help assist with pulling off more fluid. He is not on ASHER inhibitor therapy or ARB. No other medications to affect his blood pressure. Otherwise, continue amiodarone and atorvastatin. Family is planning on proceeding with the rehab. We would certainly agree. Otherwise, I have no further recommendations. Job ID: [id number]
[2019-06-05] MEDS: Atorvastatin Calcium 40 MG TAB PO SCH (22:00)
--- NOTE | 2019-06-05 23:57 | PRG ---
DATE OF SERVICE: 06/05/2019 SUBJECTIVE: The patient remains on the surgical floor. The patient is status post ground level fall in which he sustained multiple rib fractures. The patient is currently sleeping in no distress. OBJECTIVE: VITAL SIGNS: Stable. The patient remains afebrile. GENERAL: The patient is sleeping comfortably in bed. RESPIRATORY: Respirations, even, nonlabored, no distress. ASSESSMENT: 1. Status post mechanical fall. 2. Rib fractures 9 through 12, left. 3. Residual small left apical pneumothorax, stable. 4. Hypotension, related to congestive heart failure medications. 5. End-stage renal disease on dialysis. PLAN: Continue supportive care, continue physical and occupational therapy. Dialysis per Nephrology. We will continue to observe patient's blood pressure. We will continue pulmonary toilet. Job ID: [id number] [facility]
[2019-06-06] MEDS: Acetaminophen 500 MG TAB PO SCH ×5 (00:14→23:47)
[2019-06-06 04:41] LABS: #Eosinphils 0.1 thou/uL (0.0-0.7); #Lymphocytes 0.7 thou/uL (1.20-3.40); #Monocytes 0.7 thou/uL (0.11-0.59); #Neutrophils 4.7 thou/uL (1.40-6.50); %Basophils 0.4 % (0.0-1.0); %Eosinophils 1.9 % (0.0-10.0); %Lymphocytes 10.9 % (21.0-51.0); %Monocytes 11.7 % (0.0-10.0); %Neutrophils 75.2 % (42.0-75.0); Hemoglobin 9.7 g/dL (14.0-18.0); Mean Corpuscular HGB CONC 33.6 g/dL (32.0-36.0); Mean Corpuscular Hemoglobin 36.7 pg (27.0-31.0); Mean Platelet Volume 7.9 fL (7.4-10.4); Platelet Count 186 thou/uL (130-400); RBC Distribution Width 14.9 % (11.5-14.5); Red Blood Cell (RBC) Count 2.64 mill/uL (4.70-6.10); White Blood Cell (WBC) Count 6.2 thou/uL (4.8-10.8)
[2019-06-06 05:06] LABS: Anion Gap 16 mmol/L (10-20); BUN (Urea Nitrogen) 40 mg/dL (8.4-25.7); Calc. Creatinine Clearance 14 mL/min (70-130); Calcium 8.4 mg/dL (7.8-10.44); Carbon Dioxide 26 mmol/L (23-31); Chloride 96 mmol/L (98-107); Estimated GFR-MDRD 12; Glucose 91 mg/dL (83-110); Potassium 4.7 mmol/L (3.5-5.1); Sodium 133 mmol/L (136-145)
[2019-06-06 05:13] LABS: Prothrombin Time 30.6 SEC (12.0-14.7)
[2019-06-06] MEDS: Ibuprofen 200 MG TAB PO SCH ×3 (06:13→22:13)
[2019-06-06 09:11] LABS: Magnesium 1.6 mg/dL (1.6-2.6); Phosphorus 5.3 mg/dL (2.3-4.7)
--- NOTE | 2019-06-06 09:34 | PRG ---
DATE OF SERVICE: 06/06/2019 SUBJECTIVE: Mr. Hancock is an 79-year-old white male with known history of ESRD and cardiomyopathy. He was admitted secondary to fall with subsequent re-fractures. We are following him up for his maintenance hemodialysis. I have scheduled this patient for hemodialysis again today. Fluid removal will be done only if as tolerated by the patient. No other complaints today, except for some abdominal fullness. Please note, he has underlying ascites, which we drained on a regular basis. OBJECTIVE: VITAL SIGNS: Blood pressure 105/61, heart rate 68, respiratory rate 18, temperature 97.6, and pulse ox 94% on room air. GENERAL: Noted to be awake, alert, comfortable, not in overt distress. SKIN: Adequate turgor. HEENT: He has a slightly pale conjunctivae. Anicteric sclerae. NECK: No neck mass. No carotid bruits. No JVD. CHEST: No deformities. LUNGS: Clear breath sounds. No wheezing. No crackles. HEART: Irregular. No murmur. No gallops. No rubs. ABDOMEN: Globular, soft. Positive for ascites. EXTREMITIES: No edema. MEDICATIONS: Medications of June 06, 2019, were reviewed. LABORATORY DATA: Laboratories of June 06, 2019; white count 6.2, hemoglobin 9.7. INR is 3.0. Sodium 133, potassium 4.7, chloride 96, carbon dioxide 26, BUN 40, creatinine 4.69, calcium 8.4, phosphorus 5.3, magnesium 1.6. ASSESSMENT AND PLAN: 1. End-stage renal disease-continue current hemodialysis regimen on Tuesday, Tuesday, and Tuesday. Again, fluid removal only as tolerated by the patient. 2. Hyperphosphatemia. Start Renvela 800 mg one tablet t.i.d. with meals. 3. Atrial fibrillation-off Coumadin. INR is noted at 3.0. 4. Ascites. Consider draining again the ascitic fluid tomorrow after dialysis today. Overall, agree with current management. 5. Anemia, on weekly Epogen. Job ID: [id number]
[2019-06-06] MEDS: Polyethylene Glycol 3350 17 GM Packet PO SCH ×2 (10:34→15:49)
[2019-06-06] MEDS: Amiodarone 200 MG TAB PO SCH ×2 (10:34→15:51)
[2019-06-06] MEDS: Famotidine 20 MG TAB PO SCH ×2 (10:34→15:50)
[2019-06-06] MEDS: Allopurinol 100 MG TAB PO SCH ×2 (10:34→15:50)
[2019-06-06] MEDS: Gabapentin 100 MG CAP PO SCH ×3 (10:34→19:39)
[2019-06-06] MEDS: Senokot S 8.6-50 MG TAB PO SCH ×2 (10:35→19:39)
[2019-06-06] MEDS: Sevelamer Carbonate 800 MG TAB PO SCH ×2 (13:17→17:03)
--- NOTE | 2019-06-06 15:02 | PRG ---
DATE OF SERVICE: 06/06/2019 SUBJECTIVE: The patient remains on the surgical floor. He is status post ground level fall, he sustained multiple left-sided rib fractures. He is progressing with physical therapy. He is scheduled for dialysis today. He has had his medications again adjusted by Cardiology. The patient reports his pain is controlled. He is tolerating a diet. OBJECTIVE: VITAL SIGNS: Temperature 97.6, heart rate 68, blood pressure 105/61, respirations 18, and oxygen saturation 94% on room air. GENERAL: The patient is resting comfortably in bed. He is awake, alert, and oriented x3. [place] Coma Scale is 15. HEENT: Unremarkable. LUNGS: Show bilateral scattered rhonchi. HEART: Regular rate and rhythm. ABDOMEN: Soft and nontender with active bowel sounds. EXTREMITIES: Neurovascularly intact x4. Extremities did show 1 to 2+ pitting edema distally. LABORATORY FINDINGS: White blood cell count 6.2, hemoglobin 9.7, hematocrit 28.9, platelets 186. Sodium 133, potassium 4.7, chloride 96, CO2 of 26, BUN 40, creatinine 4.69, glucose 91, magnesium 1.6, and phosphorus 5.3. IMAGING STUDIES: There are no radiographs to review this morning. ASSESSMENT AND PLAN: 1. Status post mechanical fall. 2. Left ribs 9 through 12 fracture. 3. Residual small apical pneumothorax, stable. 4. Nonischemic cardiomyopathy. 5. End-stage renal disease, on dialysis. PLAN: Plan will be to continue supportive care. Dialysis today per Nephrology. Medication adjustment by Cardiology. Continue physical and occupational therapy and await final placement decision. The evaluation was done with Dr. Ghosh during rounds this morning. Job ID: [id number]
[2019-06-06] MEDS: Cyclobenzaprine 10 MG TAB PO PRN (19:39)
[2019-06-06] MEDS: Atorvastatin Calcium 40 MG TAB PO SCH (19:39)
--- NOTE | 2019-06-06 23:08 | PRG ---
DATE OF SERVICE: 06/06/2019 SUBJECTIVE: The patient remains on the surgical floor. The patient is status post ground level fall in which he sustained multiple left-sided rib fractures. The patient reports that his pain is improving. The patient is currently tolerating a diet. The patient voices no complaints at this time. OBJECTIVE: VITAL SIGNS: Stable, improved blood pressures. The patient remains afebrile. GENERAL: The patient is resting comfortably in bed. He is awake, alert, and oriented x3. No distress noted. HEENT: Unremarkable. RESPIRATORY: Equal chest rise and fall, respirations even and unlabored, no distress. IMPRESSION: 1. Status post mechanical fall. 2. Left ribs, 9 through 12 fracture. 3. Residual small apical pneumothorax, stable. 4. Nonischemic cardiomyopathy. 5. End-stage renal disease, on dialysis. PLAN: Continue supportive care. Medication adjustments by Cardiology. Continue physical and occupational therapies. Job ID: [id number]
[2019-06-07 04:47] LABS: #Eosinphils 0.1 thou/uL (0.0-0.7); #Lymphocytes 0.7 thou/uL (1.20-3.40); #Monocytes 0.6 thou/uL (0.11-0.59); %Basophils 0.5 % (0.0-1.0); %Monocytes 11.6 % (0.0-10.0); Hemoglobin 9.8 g/dL (14.0-18.0); Mean Corpuscular HGB CONC 33.5 g/dL (32.0-36.0); Mean Corpuscular Hemoglobin 36.4 pg (27.0-31.0); Mean Platelet Volume 7.5 fL (7.4-10.4); Platelet Count 203 thou/uL (130-400); Red Blood Cell (RBC) Count 2.69 mill/uL (4.70-6.10); White Blood Cell (WBC) Count 5.5 thou/uL (4.8-10.8)
[2019-06-07 04:51] LABS: INR-International Normal Ratio 2.5; Prothrombin Time 26.6 SEC (12.0-14.7)
[2019-06-07 05:08] LABS: Anion Gap 12 mmol/L (10-20); BUN (Urea Nitrogen) 22 mg/dL (8.4-25.7); Calc. Creatinine Clearance 21 mL/min (70-130); Calcium 8.7 mg/dL (7.8-10.44); Carbon Dioxide 30 mmol/L (23-31); Chloride 99 mmol/L (98-107); Estimated GFR-MDRD 20; Glucose 83 mg/dL (83-110); Magnesium 1.7 mg/dL (1.6-2.6); Phosphorus 3.6 mg/dL (2.3-4.7); Sodium 137 mmol/L (136-145)
[2019-06-07] MEDS: Ibuprofen 200 MG TAB PO SCH ×3 (05:11→21:28)
[2019-06-07] MEDS: Acetaminophen 500 MG TAB PO SCH ×3 (05:11→17:21)
[2019-06-07] MEDS: Allopurinol 100 MG TAB PO SCH (08:52)
[2019-06-07] MEDS: Cyclobenzaprine 10 MG TAB PO PRN (08:53)
[2019-06-07] MEDS: Sevelamer Carbonate 800 MG TAB PO SCH ×3 (08:53→17:21)
[2019-06-07] MEDS: Famotidine 20 MG TAB PO SCH (08:54)
[2019-06-07] MEDS: Gabapentin 100 MG CAP PO SCH ×3 (08:54→21:28)
[2019-06-07] MEDS: Senokot S 8.6-50 MG TAB PO SCH ×2 (08:54→21:27)
[2019-06-07] MEDS: Polyethylene Glycol 3350 17 GM Packet PO SCH (08:55)
[2019-06-07] MEDS: Amiodarone 200 MG TAB PO SCH (08:56)
--- NOTE | 2019-06-07 09:32 | PRG ---
DATE OF SERVICE: 06/07/2019 SUBJECTIVE: Mr. Hancock is an 79-year-old white male with ESRD and followed up by the [facility] for his maintenance hemodialysis. He underwent dialysis yesterday without any difficulty. He was initially admitted for a fall with subsequent rib fracture and development of a small apical pneumothorax. He has also underlying ascites. He was complaining of abdominal fullness today. The plan is to drain his ascites in an attempt to remove 3 L as tolerated. In addition, I will be giving albumin infusion for 4 doses today. No complaints of chest pain or shortness of breath. OBJECTIVE: VITAL SIGNS: Blood pressure 112/54, heart rate 65, respiratory rate 18, temperature 97.4, and pulse ox 96%. GENERAL: Awake, alert, and comfortable. SKIN: Adequate turgor. HEENT: Pinkish conjunctivae. Anicteric sclerae. NECK: No neck mass. No carotid bruits. No JVD. CHEST: No deformities. LUNGS: Clear breath sounds. HEART: Normal sinus rhythm. No murmurs. No gallops. No rubs. ABDOMEN: Globular, soft, and nontender. No masses. Positive for intra-abdominal drain. Positive for ascites. EXTREMITIES: No edema. MEDICATIONS: Medications of June 07, 2019, was reviewed. LABORATORY DATA: Laboratories of June 07, 2019; white count 5.5, hemoglobin 9.8. Sodium 137, potassium 4, chloride 99, carbon dioxide 30, BUN 22, creatinine 3.09, calcium 8.7, and phosphorus 3.6. ASSESSMENT AND PLAN: 1. Ascites - we will be draining his ascites - attempt 3 L ascitic fluid removal. In the same time, we will give albumin infusion. 2. End-stage renal disease, stable. We will continue current Tuesday, Tuesday, and Tuesday hemodialysis. 3. Cardiomyopathy/atrial fibrillation - INR was noted to be at 2.5. We can probably resume Coumadin tomorrow. 4. Anemia. Continuing weekly Epogen. Job ID: [id number]
[2019-06-07] MEDS: Albumin 25% 25 GM/100 ML BOT IVPB SCH ×3 (09:53→21:45)
--- NOTE | 2019-06-07 15:49 | PRG ---
DATE OF SERVICE: 06/07/2019 SUBJECTIVE: The patient remains on the surgical floor. He is status post ground level fall, he sustained multiple left-sided rib fractures. He is doing well with physical therapy. He underwent dialysis yesterday and he is going to undergo dialysis again today. His medications are being adjusted by Cardiology due to low blood pressure. He is tolerating diet. OBJECTIVE: VITAL SIGNS: Temperature 97.4, pulse 65, respirations 18, 96% on room air, blood pressure 112/54. GENERAL: The patient is lying in bed, doing well. HEENT: Unremarkable. LUNGS: Bilateral scattered rhonchi. HEART: Regular rate and rhythm. ABDOMEN: Soft, nontender, with active bowel sounds. LABORATORY FINDINGS: White blood cell count 5.5; hemoglobin 9.8, stable; hematocrit 29.2; platelet count 203. Sodium 137, potassium 4.0, magnesium 1.7, phosphorus 3.6. ASSESSMENT: 1. Status post mechanical fall. 2. Left ribs 9 through 12 fracture. 3. Residual small apical pneumothorax, stable. 4. Nonischemic cardiomyopathy. 5. End-stage renal disease, on dialysis. PLAN: Plan is to continue supportive care. Dialysis again per Nephrology. They would like to take off 3 L at this time. Cardiology is taking care of his cardiac medications and blood pressure medications. We will continue with physical therapy and occupational therapy. We are still waiting on the final decision for placement, which will hopefully be in the next couple of days, if not more. The evaluation was done with Dr. Ghosh during rounds this morning. Pt evaluated and plan discussed with Dr. Ghosh at bedside. Job ID: [id number] [facility]
[2019-06-07] MEDS: Atorvastatin Calcium 40 MG TAB PO SCH (21:28)
--- NOTE | 2019-06-08 00:04 | PRG ---
DATE OF SERVICE: 06/07/2019 SUBJECTIVE: The patient remains on the surgical floor. The patient is status post ground level fall in which he sustained multiple left-sided rib fractures. The patient continues to tolerate a diet. The patient voices no complaints at this next. OBJECTIVE: VITAL SIGNS: Stable. The patient remains afebrile. GENERAL: The patient resting comfortably. The patient is awake, alert, in no distress. RESPIRATORY: Bilateral breath sounds clear. Good inspiratory and expiratory effort. ABDOMEN: Soft, nontender. Positive for ascites. IMPRESSION: 1. Status post mechanical. 2. Left rib fractures, 9 through 12. 3. Residual small apical pneumothorax, stable. 4. Nonischemic cardiomyopathy. 5. End-stage renal disease, on dialysis. PLAN: Continue supportive care. The patient is pending insurance authorization for inpatient rehab. Job ID: [id number]
[2019-06-08] MEDS: Acetaminophen 500 MG TAB PO SCH ×4 (00:11→18:54)
[2019-06-08] MEDS: Albumin 25% 25 GM/100 ML BOT IVPB SCH (04:25)
[2019-06-08] MEDS: Ibuprofen 200 MG TAB PO SCH ×2 (05:56→15:18)
[2019-06-08 06:14] LABS: #Eosinphils 0.2 thou/uL (0.0-0.7); #Lymphocytes 0.9 thou/uL (1.20-3.40); #Monocytes 0.7 thou/uL (0.11-0.59); #Neutrophils 4.3 thou/uL (1.40-6.50); %Basophils 0.6 % (0.0-1.0); %Eosinophils 2.7 % (0.0-10.0); %Lymphocytes 14.5 % (21.0-51.0); %Monocytes 11.4 % (0.0-10.0); %Neutrophils 70.8 % (42.0-75.0); Hemoglobin 9.4 g/dL (14.0-18.0); Mean Corpuscular HGB CONC 33.6 g/dL (32.0-36.0); Mean Corpuscular Hemoglobin 36.3 pg (27.0-31.0); Platelet Count 203 thou/uL (130-400); RBC Distribution Width 15.1 % (11.5-14.5); Red Blood Cell (RBC) Count 2.59 mill/uL (4.70-6.10)
[2019-06-08 06:18] LABS: INR-International Normal Ratio 2.5; Prothrombin Time 26.4 SEC (12.0-14.7)
[2019-06-08 06:34] LABS: Anion Gap 18 mmol/L (10-20); BUN (Urea Nitrogen) 34 mg/dL (8.4-25.7); Calc. Creatinine Clearance 15 mL/min (70-130); Calcium 9.1 mg/dL (7.8-10.44); Carbon Dioxide 25 mmol/L (23-31); Chloride 96 mmol/L (98-107); Estimated GFR-MDRD 13; Glucose 90 mg/dL (83-110); Potassium 4.3 mmol/L (3.5-5.1); Sodium 135 mmol/L (136-145)
[2019-06-08] MEDS: Allopurinol 100 MG TAB PO SCH (07:59)
[2019-06-08] MEDS: Famotidine 20 MG TAB PO SCH (07:59)
[2019-06-08] MEDS: Senokot S 8.6-50 MG TAB PO SCH ×2 (07:59→08:02)
[2019-06-08] MEDS: Gabapentin 100 MG CAP PO SCH ×2 (08:00→15:18)
[2019-06-08] MEDS: Sevelamer Carbonate 800 MG TAB PO SCH ×3 (08:00→18:54)
[2019-06-08] MEDS: Amiodarone 200 MG TAB PO SCH (08:00)
[2019-06-08] MEDS: Polyethylene Glycol 3350 17 GM Packet PO SCH (08:01)
--- NOTE | 2019-06-08 10:06 | PRG ---
DATE OF SERVICE: 06/08/2019 SUBJECTIVE: Mr. Hancock is an 79-year-old white male with ESRD and chronic ascites. He was initially admitted for trauma-status post fall with rib fracture and development of a small apical pneumothorax. No new complaints today. He is undergoing hemodialysis. I plan to do a 2 L fluid removal. Please note, he had therapeutic paracenteses yesterday, where about 2.5 L of ascitic fluid was removed. No other complaints today no chest pain or shortness of breath. OBJECTIVE: VITAL SIGNS: Blood pressure is 124/67, heart rate 74, respiratory rate 14, temperature 97.4, and pulse ox 95%. GENERAL: He is noted to be awake, alert, comfortable, not in overt distress. SKIN: Adequate turgor. HEENT: Slightly pale conjunctivae. Anicteric sclerae. No neck mass. No carotid bruits. No JVD. CHEST: No deformities. LUNGS: Decreased breath sounds. HEART: Normal sinus rhythm. No murmur. No gallops or rubs. ABDOMEN: Globular, soft, nontender. No masses. Positive for ascites. EXTREMITIES: No edema. No deformities. Please note, he does have an intraperitoneal PleurX catheter. MEDICATIONS: Medications of June 08, 2019, were reviewed. LABORATORY DATA: Laboratories of June 08, 2019; white count 6, hemoglobin 9.4. Sodium 135, potassium 4.3, chloride 96, carbon dioxide 25, BUN 34, creatinine 4.29, glucose 90, and calcium 9.1. INR is 2.5. ASSESSMENT AND PLAN: 1. End-stage renal disease-stable. We will continue current hemodialysis regimen. We will attempt 2 L of fluid removal with the patient. We will hold off heparin. 2. Atrial fibrillation-off Coumadin. Most recent INR is still 2.5. Recheck INR tomorrow. 3. Chronic ascites-2.5 L of fluid was removed-ascitic fluid, tolerated said procedure. 4. Status post trauma/rib fracture-awaiting rehab placement. Recheck CBC, basic met, INR again tomorrow. Job ID: [id number]
[2019-06-08 15:56] VITALS: BP 119/51; TEMP 97.6
--- NOTE | 2019-06-08 17:51 | DIS ---
DATE OF ADMISSION: 06/02/2019 DATE OF DISCHARGE: 06/08/2019 ADMISSION DIAGNOSES: 1. Status post mechanical fall. 2. Left rib fractures 9 through 12. 3. Small pneumothorax on the left. 4. History of congestive heart failure with atrial fibrillation, and pacemaker. 5. End-stage renal disease, on hemodialysis. 6. Ascites with peritoneal drain. CONSULTATIONS: 1. Cardiology, Dr. Mckinnon. 2. Nephrology, Dr. Pereyra. PROCEDURES: None. SUMMARY: The patient is an 79-year-old man, who had a fall at home. He tripped and hit his left side of his chest on the table. He was brought to the emergency department, underwent evaluation and examination, was noted to have the above injuries. The patient, while his stay here, was noted to have some hypotension. This may have been related to his end-stage renal disease or possibly medications that he was on. At the time of discharge, though he remained normotensive, he was tolerating his dialysis. His pain was controlled. He was tolerating a diet. His bowel function had resumed. The patient will be discharged to [facility] bed [facility] to continue his rehabilitation to get him strong enough to go home. The patient will follow up with Dr. Pereyra as normally scheduled with his dialysis. The patient will follow up with Dr. Mckinnon in 2 weeks and follow up with the [facility] in 2 weeks. With the Trauma Clinic, he will need a chest x-ray at that time also. The patient may follow up sooner with the appropriate physicians as needed. Job ID: [id number]
== END 2019-06-08 19:46 | DRG 199 ==
LOC: ERS 10:27 → SURG B 13:34
PROVIDERS: ADMIT Surgery; ATTEND Surgery
PROC: 0W9G3ZZ Drainage of Peritoneal Cavity, Percutaneous Approach (ICD-10-PCS; principal; 2019-06-07)
PROC: 5A1D70Z Performance of Urinary Filtration, Intermittent, Less than 6 Hours Per Day (ICD-10-PCS; 2019-06-08)
DX: S27.0XXA Traumatic pneumothorax, initial encounter (principal); N18.6 End stage renal disease; S22.42XA Multiple fractures of ribs, left side, initial encounter for closed fracture; I50.22 Chronic systolic (congestive) heart failure; R18.8 Other ascites; I42.8 Other cardiomyopathies; I13.2 Hypertensive heart and chronic kidney disease with heart failure and with stage 5 chronic kidney disease, or end stage renal disease; Z96.653 Presence of artificial knee joint, bilateral; W18.30XA Fall on same level, unspecified, initial encounter; I48.2 Chronic atrial fibrillation; D64.9 Anemia, unspecified; I25.10 Atherosclerotic heart disease of native coronary artery without angina pectoris; I95.2 Hypotension due to drugs; E83.39 Other disorders of phosphorus metabolism; Z99.2 Dependence on renal dialysis; Y92.9 Unspecified place or not applicable; Z79.01 Long term (current) use of anticoagulants
CPT/HCPCS: 36415; 36416; 71045; 71260; 74177; 80048; 80053; 83735; 84100; 85025; 85610; 85730; 90935; 94640; 96374; 96375; 99211; G0257; G0463; J2270; J2405; J7620; P9047; Q5105; Q9966